=== PATIENT | male | born 1960 | race Caucasian/White ===

== ENCOUNTER 2024-01-27 16:05 | Outpatient (REF) | payer SELFPAY ==
[2024-01-27 12:27] LABS: ALT 36 U/L (16-63); AST 18 U/L (15-37); Alkaline Phosphatase 85 U/L (46-116); Anion Gap 0.6 mmol/L (3-11); BUN 15 mg/dL (7-18); Bilirubin, Total 0.3 mg/dL (0.2-1.0); CO2 35.4 mmol/L (21.0-32.0); CREATININE 0.9 mg/dL (0.70-1.30); Calcium 8.3 mg/dL (8.5-10.1); Chloride 105 mmol/L (98-107); Estimated GFR 94.19 (mL/min/1.73m2); Glucose 242 mg/dL (74-106); Potassium 4.8 mmol/L (3.5-5.1); Sodium 141 mmol/L (136-145); Total Protein 6.5 g/dL (6.4-8.2)
[2024-01-27 12:31] LABS: Abs Immature Grans 0.11 10^3/uL (0.0-0.06); Absolute Basophil Count 0.02 10^3/uL (0.0-0.2); Absolute Eosinophil Count 0.22 10^3/uL (0.0-0.7); Absolute Lymphocyte Count 0.86 10^3/uL (1.2-3.4); Absolute Monocyte Count 0.66 10^3/uL (0.1-0.8); Absolute Neutrophil Count 6.49 10^3/uL (1.2-6.7); Basophils % 0.2; Eosinophils % 2.6; HCT 33.7 % (40.0-50.0); HGB 9.8 g/dL (13.5-17.5); Immature Grans % 1.3; Lymphocytes % 10.3; MCH 30.4 pg (27.0-33.0); MCHC 29.1 % (32.0-36.0); MCV 105 fL (80-95); Monocytes % 7.9; Neutrophils % 77.7; Platelet Count 351 10^3/uL (130-400); RBC 3.22 10^6/uL (4.36-5.78); RDW 15.8 % (11.8-14.1); RDW-SD 58.5 fL; WBC 8.36 10^3/uL (4.4-10.8)
== END 2024-01-27 16:06 | disposition home or self-care (01) ==
LOC: LBO 16:05
PROVIDERS: PCP Optometrist; Visit Provider Family Medicine
DX: R65.20 Severe sepsis without septic shock (principal); E87.6 Hypokalemia
CPT/HCPCS: 80053; 85025

== ENCOUNTER 2024-03-02 13:40 | Inpatient (IN) | payer MEDICARE, MEDICAID, SELFPAY ==
[2024-03-02] VITALS (118 sets, daily range): BP systolic 72–130; BP diastolic 25–102; PULSE 65–187; RESP 10–26; TEMP 31–36.5; O2SAT 86–100
--- NOTE | 2024-03-02 13:45 | RT.EKG_ITS ---
APPROVED REPORT Exam: Resting ECG Reason for Exam: sob Patient Location: E HR:84 bpm ECG Measurements Heart Rate 84 AXIS WA 152 P 61 QRSd 100 QRS -4 QT 311 T 55 QTc 368 Conclusion Sinus rhythm...normal P axis, V-rate 60- 99 Inferior infarct, old...Q >35mS, II III aVF Physician: no stemi
--- NOTE | 2024-03-02 13:45 | DI.RAD_ITS ---
Exam(s) XR PORTABLE CHEST AP EXAM: XR PORTABLE CHEST AP CLINICAL HISTORY: sob, hypoxic. TECHNIQUE: 2D digital imaging was performed. COMPARISON: No exams were available for comparison FINDINGS: Single AP portable view. Heart size is upper normal. The mediastinum is not widened. There are significant infiltrates in both lung bases, more prominent on the left side. No obvious pl eural effusions. IMPRESSION: Bilateral lower lobe infiltrates, larger on the left side. DATA REPOSITORY: RADIATION DOSE DELIVERED:
--- NOTE | 2024-03-02 13:58 | ED.GENADUL_ITS ---
Discharge Plan Disposition Patient Disposition: Admit to [facility] Condition: Critical Discharge Details Chief Complaint: SOB Clinical Impression: Septic shock, Pneumonia, Acute hyponatremia, Acute hyperkalemia Primary Care Provider: Bright Finney ED Provider: Denys Jo Home Meds and New Rx's Prescriptions: No Action furosemide 40 mg tablet 40 mg PO DAILY Patient Comments: TAKE ONE TABLET BY MOUTH EVERY DAY enalapril maleate 20 mg tablet 20 mg PO DAILY Patient Comments: TAKE ONE TABLET BY MOUTH EVERY DAY pioglitazone 45 mg tablet 45 mg PO DAILY Patient Comments: TAKE ONE TABLET BY MOUTH EVERY DAY triamcinolone acetonide 0.1 % cream 1 applic TOPICAL BID Patient Comments: APPLY TOPICALLY TO THE AFFECTED AREA(S) TWO TIMES A DAY NEEDED amiloride 5 mg tablet 5 mg PO DAILY Patient Comments: TAKE ONE TABLET BY MOUTH EVERY DAY tamsulosin 0.4 mg capsule 0.4 mg PO DAILY Patient Comments: TAKE ONE CAPSULE BY MOUTH EVERY DAY simvastatin 20 mg tablet 20 mg PO DAILY Patient Comments: TAKE ONE TABLET BY MOUTH AT BEDTIME gabapentin 100 mg capsule 100 mg PO TID Patient Comments: TAKE ONE CAPSULE BY MOUTH THREE TIMES A DAY nifedipine 60 mg tablet extended release 60 mg PO DAILY Patient Comments: TAKE TWO TABLETS BY MOUTH EVERY DAY Invokana 100 mg tablet 100 mg PO DAILY Patient Comments: TAKE ONE TABLET BY MOUTH EVERY DAY acetaminophen 325 mg capsule 650 mg PO Q4H PRN potassium chloride 20 mEq tablet extended release 20 meq PO DAILY HPI General Date/Time Provider Initiated Documentation: 03/02/24 13:58 . 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 Patient is a poor historian, but nursing report/EMS report states that for the last 3 to 4 days he has been coughing and has been COVID-positive, he has been having increasing in his oxygen demand, and was brought in by EMS for further assessment. EMS reports oxygenation status of 2 L at baseline, however he was requiring up to 4 L to maintain sats at around 88%. Patient denies chest pain. He admits to productivity to his cough. No other complaints at this time. No other modifying factors. He is not currently on any antiviral treatment for COVID. He is DNR/DNI for his CODE STATUS. Related Data Home Medications Medication Instructions Recorded Confirmed acetaminophen 325 mg capsule 650 mg PO Q4H PRN 03/02/24 03/02/24 amiloride 5 mg tablet 5 mg PO DAILY 03/02/24 03/02/24 canagliflozin 100 mg tablet 100 mg PO DAILY 03/02/24 03/02/24 (Invokana) enalapril maleate 20 mg tablet 20 mg PO DAILY 03/02/24 03/02/24 furosemide 40 mg tablet 40 mg PO DAILY 03/02/24 03/02/24 gabapentin 100 mg capsule 100 mg PO TID 03/02/24 03/02/24 nifedipine 60 mg tablet,extended 60 mg PO DAILY 03/02/24 03/02/24 release pioglitazone 45 mg tablet 45 mg PO DAILY 03/02/24 03/02/24 potassium chloride 20 mEq 20 meq PO DAILY 03/02/24 03/02/24 tablet,extended release simvastatin 20 mg tablet 20 mg PO DAILY 03/02/24 03/02/24 tamsulosin 0.4 mg capsule 0.4 mg PO DAILY 03/02/24 03/02/24 triamcinolone acetonide 0.1 % 1 applic topical BID 03/02/24 03/02/24 topical cream Allergies Allergy/AdvReac Type Severity Reaction Status Date / Time aspirin Allergy Mild Other (See Verified 03/02/24 13:43 Comment) metformin Allergy Unknown Unknown Verified 03/02/24 13:43 sulfamethoxazole Allergy Unknown Unknown Verified 03/02/24 13:43 [From Bactrim] trimethoprim [From Bactrim] Allergy Unknown Unknown Verified 03/02/24 13:43 General Stated Complaint: SOB JOSHUA: 3 Review of Systems All systems reviewed & are unremarkable except as noted in HPI and below Exam Narrative Exam Narrative: 1.Const: Well-nourished, Well-developed, morbidly obese 2.Eyes: PERRL, no conjunctival injection, and symmetrical lids. 3.ENT: Atraumatic external nose and ears. Moist MM. Neck: Symmetric, trachea midline, No thyromegaly. 4.CVS: +S1/S2, No murmurs or gallops. Peripheral pulses 2+ and equal in all extremities. Brisk capillary refill in all extremities. 5.RESP: Rhonchorous breath sounds, no wheezes. 6.GI: Soft, Nontender/Nondistended, No hepatosplenomegaly. No guarding or rebound. 7.MSK: Normocephalic/Atraumatic, Extremities w/o deformity or ttp No cyanosis or clubbing, Normal movement of all extremities 8.Skin: Warm, Dry. No rashes or lesions. No evidence of significant cellulitis. 9.Neuro: Slurred speech which appears to be baseline, moves all extremities with weakness on the right which per records appears to be baseline. 10.Psych: (AAO) x3. Appropriate mood and affect Course Vital Signs Vital signs: Vital Signs Temperature 36.3 C L 03/02/24 13:30 Respiratory Rate 15 03/02/24 13:30 Blood Pressure 126/95 H 03/02/24 13:30 Pulse Oximetry 86 L 03/02/24 13:30 Temperature 36.3 C L 03/02/24 13:30 Respiratory Rate 15 03/02/24 13:30 Respiratory Effort Short of Breath 03/02/24 13:44 Blood Pressure 126/95 H 03/02/24 13:30 Pulse Oximetry 86 L 03/02/24 13:30 Oxygen Delivery Method Nasal Cannula 03/02/24 13:30 Oxygen Flow Rate 3 03/02/24 13:30 Lab/Test Results Lab/Test Results: 03/02/24 13:45 Blood Blood Culture - Pending 03/02/24 13:45 Blood Blood Culture - Pending Procedures Central Line Placement Right IJ: Time Out Performed: Yes Patient Placed on Monitor/Pulse Ox: Yes MD Prep: mask, gown and gloves Central Line Prep: Chlorhexidine scrub Local Anesthetic: Lidocaine 1% Amount of anesthesia used (mL): 4 Ultrasound Used for Placement: Yes Central Line Lumen Inserted: triple Post Procedure: good blood return, all ports aspirated, flushed, capped and sutured in place with 2-0 silk Post Procedure X-Ray: tip of catheter in good position Patient Tolerated Procedure: well and no complications Complications: none Medical Decision Making 64-year-old male with a past medical history morbid obesity, aortic stenosis, cellulitis requiring PICC line and antibiotics until January 25, diabetes, 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 Patient is a poor historian, but nursing report/EMS report states that for the last 3 to 4 days he has been coughing and has been COVID-positive, he has been having increasing in his oxygen demand, and was brought in by EMS for further assessment. EMS reports oxygenation status of 2 L at baseline, however he was requiring up to 4 L to maintain sats at around 88%. Patient denies chest pain. He admits to productivity to his cough. No other complaints at this time. No other modifying factors. He is not currently on any antiviral treatment for COVID. He is DNR/DNI for his CODE STATUS. Exam demonstrates large male, currently hypoxic, rhonchorous breath sounds. Requiring supplemental oxygen. Patient is COVID-positive per [facility]. Concern for pneumonia, worsening respiratory status. Will confirm COVID- positive status, get a chest x-ray, continue supplemental oxygen. No wheezes to suggest the need for bronchodilators. Symptoms appear inconsistent with ACS, however CHF is on the differential. Will evaluate for cardiac etiologies, pulmonary processes, monitor closely and reassess. 5:01 PM Laboratory workup has returned, patient's white count is 16, notable left shift, no bandemia. Mild metabolic acidosis with a pH of 7.26, sodium is 120, potassium is 7.8, BUN notably elevated at 130, creatinine high at 1.9. Glucose 174. Troponin normal, proBNP normal. Pending COVID flu and RSV. Chest x-ray shows evidence of infiltrates bilaterally. Patient became hypoxic and hypotensive. He was started on high flow and tolerated this well. He is saturating normally now on high flow currently. Patient's blood pressure went to the 70s systolic. With the notably low sodium the decision was made to give a hypertonic saline bolus of 100 cc of 3% hypertonic. For the potassium he was given amp of D50, 10 units of IV insulin, calcium gluconate, 3 albuterol nebulizers, and Kayexalate. He tolerated this well. Decision was made to place a central line. This was reviewed with both of his sisters were at bedside and the patient, and all 3 consented for the procedure. Patient states that this is congruent with his wishes. Central line was placed and Levophed has been started. Repeat blood draw was performed after well after hypertonic saline was initially administered, and new labs demonstrated new sodium of 121, and notably improved potassium of 6.9, BUN of 128. Creatinine of 2.2. Will give a second bolus of hypertonic as the patient has not had appropriate response for a sodium. Patient still states that he does not want to be intubated. With the pulmonary infiltrates we will start vancomycin Zosyn and doxycycline. Will continue to monitor the patient closely. Discussed the case with hospitalist Dr. An, he accepts the patient for ICU admission. I have extensively reviewed the treatment plan with the patient. I have addressed all patient concerns at this time. I have also discussed the plan with the admitting physician and they agree with the current assessment and plan and have agreed to assume responsibility for the patient. All parties demonstrate verbal understanding and agreement with our assessment and plan at this time. The documentation in this chart was dictated using [employer] dictation software. Please excuse any dictation errors. FINDINGS: Single AP portable view. Heart size is upper normal. The mediastinum is not widened. There are significant infiltrates in both lung bases, more prominent on the left side. No obvious pleural effusions. IMPRESSION: Bilateral lower lobe infiltrates, larger on the left side. FINDINGS: Single AP portable view. There has been interval placement of a right jugular central line. Its distal tip is in the right atrium. Heart size is upper normal. The mediastinum is not widened. Bilateral lower lobe infiltrates again noted, left again more so than right. No obvious pleural effusions. No thorax. IMPRESSION: Distal tip of the newly placed right jugular central line is in the right atrium. Bilateral lower lobe infiltrates again noted. Quality:[facility] Health Related Social Needs: No Data to Display Critical Care Time Critical Care Time Critical Care Time: Yes Total Critical Care Time: 110 Attestation: Upon my evaluation, this patient had a high probability of imminent or life- threatening deterioration, which required my direct attention, intervention, and personal management. I have personally provided 110 minutes of critical care time exclusive of time spent on separately billable procedures. Time includes review of laboratory data, radiology results, discussion with consultants, and monitoring for potential decompensation. Interventions were performed as documented. PFSH All Active Problems (Updated 03/02/24 @ 17:08 by Denys Jo DO) Acute hyperkalemia (Acute) Acute hyponatremia (Acute) Pneumonia (Acute) Septic shock (Acute) Social History Smoking/Tobacco Use Status: Never Smoking risk assessment performed?: Yes Alcohol Intake: never Substance use type: does not use Housing: assisted living facility
[2024-03-02 14:31] LABS: Abs Immature Grans 0.27 10^3/uL (0.0-0.06); Absolute Basophil Count 0.03 10^3/uL (0.0-0.2); Absolute Lymphocyte Count 1.52 10^3/uL (1.2-3.4); Absolute Monocyte Count 1.31 10^3/uL (0.1-0.8); BE (Venous) -7 mmol/L (-2-3); Basophils % 0.2 %; Eosinophils % 0.1 %; HCO3 (Venous) 20 mmol/L (23-28); HCT 28.5 % (40.0-50.0); HGB 8.9 g/dL (13.5-17.5); Immature Grans % 1.7 %; Lymphocytes % 9.4 %; MCH 30.2 pg (27.0-33.0); MCHC 31.2 % (32.0-36.0); MCV 97 fL (80-95); MPV 8.6 fL (8.0-11.0); Monocytes % 8.1 %; Neutrophils % 80.5 %; O2 Sat (Venous) 69 %; Platelet Count 400 10^3/uL (130-400); RBC 2.95 10^6/uL (4.36-5.78); RDW 15.3 % (11.8-14.1); RDW-SD 54.2 fL; TCO2 (Venous) 19 mmol/L (24-29); WBC 16.22 10^3/uL (4.4-10.8); pCO2 (Venous) 44 mmHg (41-51); pH (Venous) 7.26 (7.31-7.41); pO2 (Venous) 39 mmHg
[2024-03-02 14:32] LABS: Absolute Eosinophil Count 0.02 10^3/uL (0.0-0.7); Absolute Neutrophil Count 13.06 10^3/uL (1.2-6.7)
[2024-03-02 14:34] LABS: Lactate 1.2 mmol/L (0.6-1.4)
[2024-03-02 14:56] LABS: ALT 12 U/L (16-63); AST 8 U/L (15-37); Albumin 2.3 g/dL (3.4-5.0); Alkaline Phosphatase 58 U/L (46-116); Anion Gap 7.7 mmol/L (3-11); Bilirubin, Total 0.3 mg/dL (0.2-1.0); CO2 21.3 mmol/L (21.0-32.0); CREATININE 1.9 mg/dL (0.70-1.30); Calcium 9.4 mg/dL (8.5-10.1); Chloride 91 mmol/L (98-107); Estimated GFR 38.42 (mL/min/1.73m2); Glucose 170 mg/dL (74-106); NT-proBNP 85 pg/mL (<300); Total Protein 7.7 g/dL (6.4-8.2); Troponin I < 50 ng/L (< or =60)
[2024-03-02 14:59] LABS: BUN 130 mg/dL (7-18); Sodium 120 mmol/L (136-145)
[2024-03-02 15:00] LABS: Potassium 7.5 mmol/L (3.5-5.1)
[2024-03-02] MEDS: CALCIUM GLUCONATE in NaCl 1 GM/50 ML BAG IVPB (15:16)
[2024-03-02] MEDS: Insulin REGULAR-Human 100 UNITS/ML UNIT 10 UNITS IV (15:16)
[2024-03-02] MEDS: Albuterol 2.5 MG/3 ML INH SOLN VIAL 7.5 MG UPD (15:18)
[2024-03-02] MEDS: SODIUM CHLORIDE 3% 500 ML 400 ML IV (15:36)
[2024-03-02] MEDS: Dextrose 50%-Water 25 GM/50 ML SYR IVP (15:38)
--- NOTE | 2024-03-02 16:00 | DI.RAD_ITS ---
Exam(s) XR PORTABLE CHEST AP POST LINE EXAM: XR PORTABLE CHEST AP POST LINE CLINICAL HISTORY: post central line placement. TECHNIQUE: 2D digital imaging was performed. COMPARISON: CR XR PORTABLE CHEST AP from 03/02/2024 FINDINGS: Single AP portable view. There has been interval placement of a right jugular central line. Its distal tip is in the right at rium. Heart size is upper normal. The mediastinum is not widened. Bilateral lower lobe infiltrates again noted, left again more so than right. No obvious pleural effu sions. No thorax. IMPRESSION: Distal tip of the newly placed right jugular central line is in the right atrium. Bilateral lower lobe infiltrates again noted. DATA REPOSITORY: RADIATION DOSE DELIVERED:
[2024-03-02] MEDS: Norepinephrine in D5W 8 MG/250 ML BAG 9.375 MG IV (16:34)
[2024-03-02] MEDS: VANCOMYCIN/WATER (PEG) 2 GM/400 ML BAG IVPB (16:36)
[2024-03-02] MEDS: DOXYCYCLINE 100 MG in Normal Saline 100 ML IVPB (16:38)
[2024-03-02] MEDS: PIPERACILLIN/TAZO 4.5 GM in Normal Saline 100 ML IVPB (16:39)
[2024-03-02 16:41] LABS: Anion Gap 8.7 mmol/L (3-11); CO2 20.3 mmol/L (21.0-32.0); CREATININE 2.2 mg/dL (0.70-1.30); Calcium 9.5 mg/dL (8.5-10.1); Chloride 92 mmol/L (98-107); Estimated GFR 32.23 (mL/min/1.73m2); Glucose 174 mg/dL (74-106)
[2024-03-02 16:42] LABS: BUN 128 mg/dL (7-18)
[2024-03-02 16:43] LABS: Potassium 6.9 mmol/L (3.5-5.1); Sodium 121 mmol/L (136-145)
[2024-03-02] MEDS: SODIUM CHLORIDE 3% 500 ML 100 ML IV (17:08)
[2024-03-02 17:14] LABS: Bilirubin Small (Negative); Blood Small (Negative); Clarity Sl Cloudy (Clear); Glucose Negative (Negative); Ketones Negative (Negative); Leukocyte Esterase Moderate (Negative); Nitrite Negative (Negative); Specific Gravity 1.015 (1.005-1.025); Urobilinogen 0.2 mg/dL (Up to 0.2)
[2024-03-02] MEDS: Lactated Ringers 1,000 ML 1000 ML IV (17:15)
[2024-03-02] MEDS: Hydrocortisone SOD SUC. 100 MG VIAL IVP (17:20)
[2024-03-02 17:22] LABS: Bacteria Many HPF (Negative); Crystals Negative HPF (Negative); Epithelial Cells Few HPF (Negative); WBC >50 HPF (0-5)
[2024-03-02 17:23] LABS: C & S Indicated? Yes; Casts Negative LPF (Negative); Mucus Heavy (Negative)
[2024-03-02 17:47] LABS: Influenza A PCR Negative (Negative); Influenza B PCR Negative (Negative); RSV PCR Negative (Negative)
[2024-03-02 17:49] LABS: COVID-19 PCR Positive (Negative); Source Nasopharynx
[2024-03-02 18:07] LABS: Troponin I < 50 ng/L (< or =60)
--- NOTE | 2024-03-02 18:18 | HPE_ITS ---
Date of service: 03/02/24 Time of Service: 18:18 Assessment and Plan Assessment and plan (1) Septic shock: Status: Acute Assessment and plan: Sepsis with hypotension. Initially not treated agressively with fluids given COVID and uncertain cardiac history, but my sense is he is dry. I am ordering a second liter of isotonic, switch to NS given low sodium Also getting fluids with abx and hypertonic On norepinephrine full dose and now hydrocortisone, adding vaspressin Requested a-line to help manage Source bilateral pneumonia, started on pip/tazo and vancomycin, continue with blood, urine, sputum cultures pending. We also need to clarify his history of leg infection, possible osteo? as well as look at his sacrum for possible sources. He is confirmed DNR/DNI (2) Pneumonia: Status: Acute Assessment and plan: Presumed infectious source, treating as above (3) COVID-19: Status: Acute Assessment and plan: this may have set him up for pneumonia but unclear how active this is given diagnosed 9 days ago. We are treating with steroids as above. I don't think there is a role for antivirals at this point. (4) Acute hyperkalemia: Status: Acute Assessment and plan: Treated wiht insulin, glucose, calcium gluconate, and kayexalate along with hydration, follow q2hr (5) Acute hyponatremia: Status: Acute Assessment and plan: In low moderate range with some confusion. I think hypovolemic and we are treatting this, but also given hypertonic and only slight increase so far. (6) Type 2 diabetes mellitus: Assessment and plan: insulin drip given acuity of illness (7) DVT prophylaxis: Status: Acute Assessment and plan: higher dose LMWH given BMI History of Present Illness History of Present Illness Chief Complaint: cough, SOB Narrative: 64 yo M with type 2 DM, BMI > 50, h/o CVA with right sided hemiparesis, recent admission for left lower leg infection with sepsis at [facility] 1 mo ago, and recent diagnosis of COVID-19 who presents with worsening cough and SOB [facility]. He started getting cough about 2 weeks ago, was diagnosed with COVID 9 days ago (initially misreported as 2 days ago). Over the past day, shortness of breath and oxygen requirement has gotten worse. Per EMS, was previously on 2 liters O2, up to 4 liters today with O2 sat 88%. Cough is productive of increasingly thick green to yellow sputum. He denies chest pain. He has not been able to eat or drink much due to increasing shortness of breath over the past 2 days. He is not on antiviral treatment for COVID. Review of Systems All systems reviewed & are unremarkable except as noted in HPI and below Constitutional Constitutional: Denies fever(s), Denies headache(s), Reports lethargy and Denies poor appetite Eyes Eyes: Denies diplopia and Reports other visual disturbances (has had a left lazy eye for years) ENT Ears, Nose, Mouth, and Throat: Denies dizziness, Denies headache(s), Denies nasal discharge and Denies sore throat Cardiovascular Cardiovascular: Denies chest pain, Denies pedal edema (legs were much more swollen when he was at [facility] than they are now) and Reports orthopnea Integumentary/Breasts Skin/Breast: Reports skin ulcer (he denies but sister states he has a sore on buttocks) and Denies wounds (leg wounds from last admission healed) Neurologic Neurologic: Reports abnormal speech (chronic), Reports confusion, Denies dizziness, Denies headache(s) and Reports localized weakness (right side is weak, but no change from his baseline) Psychiatric Psychiatric: Reports confusion PFSH All Active Problems (Updated 03/02/24 @ 18:55 by Braden Weaver) COVID-19 (Acute) DVT prophylaxis (Acute) Acute hyperkalemia (Acute) Acute hyponatremia (Acute) Pneumonia (Acute) Septic shock (Acute) Medical History Venous stasis dermatitis of both lower extremities Benign prostatic hyperplasia Hypertension Hemiparesis affecting right side as late effect of stroke Type 2 diabetes mellitus Social History Smoking/Tobacco Use Status: Never Smoking risk assessment performed?: Yes Alcohol Intake: never Substance use type: does not use Housing: assisted living facility Additional Social history: Right hemiparesis for many years after stroke in 30s, but was able to drive and live alone in [place] until January hospitalization Meds Allergies and Home Medications Allergies Allergy/AdvReac Type Severity Reaction Status Date / Time aspirin Allergy Mild Other (See Verified 03/02/24 13:43 Comment) metformin Allergy Unknown Unknown Verified 03/02/24 13:43 sulfamethoxazole Allergy Unknown Unknown Verified 03/02/24 13:43 [From Bactrim] trimethoprim [From Bactrim] Allergy Unknown Unknown Verified 03/02/24 13:43 Home Medications Medication Instructions Recorded Confirmed Type acetaminophen 325 mg capsule 650 mg PO Q4H PRN 03/02/24 03/02/24 History amiloride 5 mg tablet 5 mg PO DAILY 03/02/24 03/02/24 History canagliflozin 100 mg tablet 100 mg PO DAILY 03/02/24 03/02/24 History (Invokana) enalapril maleate 20 mg tablet 20 mg PO DAILY 03/02/24 03/02/24 History furosemide 40 mg tablet 40 mg PO DAILY 03/02/24 03/02/24 History gabapentin 100 mg capsule 100 mg PO TID 03/02/24 03/02/24 History nifedipine 60 mg tablet,extended 60 mg PO DAILY 03/02/24 03/02/24 History release pioglitazone 45 mg tablet 45 mg PO DAILY 03/02/24 03/02/24 History potassium chloride 20 mEq 20 meq PO DAILY 03/02/24 03/02/24 History tablet,extended release simvastatin 20 mg tablet 20 mg PO DAILY 03/02/24 03/02/24 History tamsulosin 0.4 mg capsule 0.4 mg PO DAILY 03/02/24 03/02/24 History triamcinolone acetonide 0.1 % 1 applic topical BID 03/02/24 03/02/24 History topical cream Exam Narrative Exam Narrative: GEN: Alert and oriented to self but could not name place or year. Cooperative, voice is course and gargly, gives a vague history. Able to speak in short sentances HEENT: Head atraumatic. Conjunctiva clear, no icterus. PEERL, left eye does not track (chronic). Right slow to track laterally but it does. no rhinorrhea. MMM, OP benign. Neck is supple with no masses or lymphadenopathy, trachea midline, central line in place, difficult to assess JVP with habitus but none evident LUNGS: Diffuse course rhonchorous breath sounds, no focal rales, moving air bilaterally CV: RRR with no murmurs, gallops, or rubs. ABD: +BS, soft, NT/ND EXT: no cyanosis, clubbing. Legs with 1+ heidi edema, somewhat woody. Not tender MSK: No joint redness or swelling NEURO: CN 2-12 grossly intact. Normal movement of 4 extremities. Normal speech and coordination SKIN: No rashes or open wounds, hyperpigmented shins heidi. he would not roll for me to look at sacrum/buttocks. PSYCH: normal mood and affect, though not oriented Results Imaging CT scan - chest: report reviewed (Bilateral lower lobe infiltrates, larger on the left side.) and image reviewed EKG: report reviewed and image reviewed (NSR, nl axis, no STEMI) Labs 03/02/24 14:20 03/02/24 16:23 Labs: Laboratory Results - last 24 hr 03/02/24 03/02/24 03/02/24 14:20 16:23 17:02 WBC 16.22 H RBC 2.95 L Hgb 8.9 L Hct 28.5 L MCV 97 H MCH 30.2 MCHC 31.2 L RDW 15.3 H Plt Count 400 MPV 8.6 Immature Gran % 1.7 Neutrophils % 80.5 Lymphocytes % 9.4 Monocytes % 8.1 Eosinophils % 0.1 Basophils % 0.2 Nucleated RBC % 0.0 Absolute Neutrophils 13.06 H Absolute Lymphocytes 1.52 Absolute Monocytes 1.31 H Absolute Eosinophils 0.02 Absolute Basophils 0.03 VBG pH 7.26 L VBG pCO2 44 VBG pO2 39 VBG HCO3 20 L VBG Total CO2 19 L VBG O2 Saturation 69 VBG Base Excess -7 L VBG Lactate 1.2 Sodium 120 L* 121 L* Potassium 7.5 H* 6.9 H* Chloride 91 L 92 L Carbon Dioxide 21.3 20.3 L Anion Gap 7.7 8.7 BUN 130 H* 128 H* Creatinine 1.9 H 2.2 H Est GFR (CKD-EPI 2020) 38.42 32.23 Glucose 170 H 174 H Calcium 9.4 9.5 Total Bilirubin 0.3 AST 8 L ALT 12 L Alkaline Phosphatase 58 Troponin I < 50 NT-Pro-B Natriuret Pep 85 Total Protein 7.7 Albumin 2.3 L Urine Color Urine Clarity Urine pH Ur Specific [place] Urine Protein Urine Ketones Urine Blood Urine Nitrite Urine Bilirubin Urine Urobilinogen Ur Leukocyte Esterase Urine RBC Urine WBC Ur Epithelial Cells Urine Crystals Urine Bacteria Urine Casts Urine Mucus Ur Culture Indicated? Urine Glucose COVID-19 Source Nasopharynx SARS-CoV-2 (PCR) Positive A Influenza Type A (PCR) Negative Influenza Type B (PCR) Negative RSV (PCR) Negative 03/02/24 03/02/24 17:03 17:37 WBC RBC Hgb Hct MCV MCH MCHC RDW Plt Count MPV Immature Gran % Neutrophils % Lymphocytes % Monocytes % Eosinophils % Basophils % Nucleated RBC % Absolute Neutrophils Absolute Lymphocytes Absolute Monocytes Absolute Eosinophils Absolute Basophils VBG pH VBG pCO2 VBG pO2 VBG HCO3 VBG Total CO2 VBG O2 Saturation VBG Base Excess VBG Lactate Sodium Potassium Chloride Carbon Dioxide Anion Gap BUN Creatinine Est GFR (CKD-EPI 2020) Glucose Calcium Total Bilirubin AST ALT Alkaline Phosphatase Troponin I < 50 NT-Pro-B Natriuret Pep Total Protein Albumin Urine Color Yellow Urine Clarity Sl Cloudy Urine pH 5.0 Ur Specific [place] 1.015 Urine Protein Negative Urine Ketones Negative Urine Blood Small H Urine Nitrite Negative Urine Bilirubin Small H Urine Urobilinogen 0.2 Ur Leukocyte Esterase Moderate H Urine RBC 5-10 H Urine WBC >50 H Ur Epithelial Cells Few Urine Crystals Negative Urine Bacteria Many Urine Casts Negative Urine Mucus Heavy Ur Culture Indicated? Yes Urine Glucose Negative COVID-19 Source SARS-CoV-2 (PCR) Influenza Type A (PCR) Influenza Type B (PCR) RSV (PCR) Last Vital Signs Temp 36.3 C L 03/02/24 14:41 Pulse 82 03/02/24 18:01 Resp 13 03/02/24 18:01 BP 106/54 L 03/02/24 18:01 Pulse Ox 98 03/02/24 18:01 Time Spent Time spent with Patient: >75 minutes Time was spent: preparing to see the patient(eg.review tests), obtaining and/or reviewing separately otained hiistory, ordering medications,tests, procedures, referring, communicating with other health daycare director, indepentently interpreting results, counseling the patient and care coordination
[2024-03-02] MEDS: VASOPRESSIN 50 UNITS in Normal Saline 497.5 ML 24 UNITS IV (19:00)
[2024-03-02 19:10] LABS: MRSA PCR Negative (Negative)
[2024-03-02] MEDS: INSULIN REGULAR IN 0.9 % NACL 100 UNIT/100 ML BAG IV (19:11)
--- NOTE | 2024-03-02 19:11 | W.ANESVAS ---
Arterial Line Placement Date Performed: 03/02/24 Procedure Time: 19:00 Procedure Location: Intensive Care Unit Requesting Provider: Braden Weaver Timeout Performed: Yes Sedation Given (Indicate Dose Given): No Sedation given Patient Mental Status: Awake Sterility: Hand Hygiene, Surgical Cap, Surgical Mask, Sterile Gloves and Chlorhexidine Laterality: Right Insertion Site: Radial Arterial Line Catheter: 20G Arrow Arterial Line Procedure: Vessel accessed with needle, Vessel accessed with catheter over needle and Catheter placed without resistance Dressing: Tegaderm Applied and Other (statlock applied) Ultrasound: Not Used Number of Attempts (See previous attempts in note section): 1 Procedure Tolerated: No Complications and Patient tolerated well Procedure Outcome: Successful Performed By: Abeba Sinclair
[2024-03-02] MEDS: Normal Saline 1,000 ML 1000 ML IV (19:23)
[2024-03-02] MEDS: DEXTROSE 5%-0.9% SALINE 1,000 ML 100 ML IV (19:29)
[2024-03-02 20:04] LABS: CREATININE 2.1 mg/dL (0.70-1.30); Calcium 9.3 mg/dL (8.5-10.1); Chloride 93 mmol/L (98-107); Estimated GFR 34.08 (mL/min/1.73m2); Glucose 226 mg/dL (74-106)
[2024-03-02 20:06] LABS: BUN 119 mg/dL (7-18); Potassium 7.6 mmol/L (3.5-5.1)
[2024-03-02 20:07] LABS: Sodium 121 mmol/L (136-145)
[2024-03-02] MEDS: Enoxaparin 60 MG/0.6 ML SYR SC (20:12)
[2024-03-02] MEDS: PIPERACILLIN/TAZO 3.375 GM in Normal Saline 50 ML IVPB (22:12)
[2024-03-02] MEDS: Norepinephrine in D5W 8 MG/250 ML BAG 67.5 MG IV (22:13)
[2024-03-02] MEDS: DOBUTamine 500 MG/250 ML BAG 13.158 MG IV (22:16)
[2024-03-02 22:39] LABS: Lab Add On Test DONE
[2024-03-02 22:49] LABS: Anion Gap 6.3 mmol/L (3-11); CO2 16.7 mmol/L (21.0-32.0); CREATININE 1.8 mg/dL (0.70-1.30); Calcium 8.4 mg/dL (8.5-10.1); Chloride 99 mmol/L (98-107); Glucose 315 mg/dL (74-106)
[2024-03-02 22:52] LABS: BUN 107 mg/dL (7-18); Potassium 6.9 mmol/L (3.5-5.1); Sodium 122 mmol/L (136-145)
[2024-03-02 23:09] LABS: Procalcitonin 1.6 ng/mL
[2024-03-03] VITALS (85 sets, daily range): BP systolic 80–139; BP diastolic 46–116; PULSE 71–190; RESP 8–24; TEMP 31–37.1; O2SAT 83–99
[2024-03-03 00:20] LABS: HCT 26.7 % (40.0-50.0); HGB 8.1 g/dL (13.5-17.5); MCH 30.1 pg (27.0-33.0); MCHC 30.3 % (32.0-36.0); MCV 99 fL (80-95); MPV 8.8 fL (8.0-11.0); Platelet Count 419 10^3/uL (130-400); RBC 2.69 10^6/uL (4.36-5.78); RDW 15.5 % (11.8-14.1); RDW-SD 56.6 fL; WBC 16.81 10^3/uL (4.4-10.8)
[2024-03-03 00:33] LABS: Anion Gap 4.3 mmol/L (3-11); CO2 18.7 mmol/L (21.0-32.0); CREATININE 1.9 mg/dL (0.70-1.30); Chloride 98 mmol/L (98-107); Estimated GFR 38.42 (mL/min/1.73m2); Glucose 345 mg/dL (74-106)
[2024-03-03 00:38] LABS: BUN 107 mg/dL (7-18); Sodium 121 mmol/L (136-145)
[2024-03-03 00:39] LABS: Potassium 6.9 mmol/L (3.5-5.1)
[2024-03-03] MEDS: Norepinephrine in D5W 8 MG/250 ML BAG 93.75 MG IV ×6 (01:00→14:25)
[2024-03-03] MEDS: CALCIUM GLUCONATE in NaCl 1 GM/50 ML BAG IVPB (01:01)
[2024-03-03] MEDS: Hydrocortisone SOD SUC. 100 MG VIAL IVP (02:11)
[2024-03-03 02:36] LABS: Anion Gap 9.6 mmol/L (3-11); CO2 18.4 mmol/L (21.0-32.0); CREATININE 1.9 mg/dL (0.70-1.30); Calcium 9.2 mg/dL (8.5-10.1); Chloride 98 mmol/L (98-107); Estimated GFR 38.42 (mL/min/1.73m2); Glucose 295 mg/dL (74-106); Sodium 126 mmol/L (136-145)
[2024-03-03 02:38] LABS: BUN 102 mg/dL (7-18)
[2024-03-03 02:39] LABS: Potassium 6.5 mmol/L (3.5-5.1)
[2024-03-03] MEDS: DEXTROSE 5%-0.45% SALINE 1,000 ML 150 ML IV (03:40)
[2024-03-03] MEDS: DOBUTamine 500 MG/250 ML BAG 43.86 MG IV (03:40)
[2024-03-03] MEDS: VANCOMYCIN/WATER (PEG) 750 MG/150 ML BAG 150 MG IVPB ×2 (04:09→15:49)
[2024-03-03] MEDS: PIPERACILLIN/TAZO 3.375 GM in Normal Saline 50 ML IVPB (04:13)
[2024-03-03 04:32] LABS: Anion Gap 10.8 mmol/L (3-11); CO2 18.2 mmol/L (21.0-32.0); CREATININE 1.7 mg/dL (0.70-1.30); Calcium 9.2 mg/dL (8.5-10.1); Chloride 99 mmol/L (98-107); Estimated GFR 43.91 (mL/min/1.73m2); Glucose 215 mg/dL (74-106); Sodium 128 mmol/L (136-145)
[2024-03-03 04:34] LABS: BUN 100 mg/dL (7-18); Potassium 6.3 mmol/L (3.5-5.1)
[2024-03-03 06:11] LABS: HCT 25.8 % (40.0-50.0); MCH 30.8 pg (27.0-33.0); MCV 99 fL (80-95); MPV 8.5 fL (8.0-11.0); Platelet Count 390 10^3/uL (130-400); RDW 15.6 % (11.8-14.1); RDW-SD 56.3 fL; WBC 16.46 10^3/uL (4.4-10.8)
[2024-03-03 06:26] LABS: Anion Gap 11.1 mmol/L (3-11); CO2 17.9 mmol/L (21.0-32.0); CREATININE 1.6 mg/dL (0.70-1.30); Calcium 8.8 mg/dL (8.5-10.1); Chloride 99 mmol/L (98-107); Estimated GFR 47.23 (mL/min/1.73m2); Glucose 142 mg/dL (74-106); Potassium 5.9 mmol/L (3.5-5.1); Sodium 128 mmol/L (136-145)
[2024-03-03 06:29] LABS: BUN 90 mg/dL (7-18)
[2024-03-03 06:39] LABS: Absolute Lymphocyte Count 1.15 10^3/uL (1.2-3.4); Absolute Monocyte Count 0.99 10^3/uL (0.1-0.8); Absolute Neutrophil Count 14.16 10^3/uL (1.2-6.7); Bands % 2 %
[2024-03-03 06:40] LABS: Anisocytosis 1+; Diff Comment Manual Differential; Hypochromasia 1+; Metamyelocytes % 1
--- NOTE | 2024-03-03 07:00 | PDOC.CMIN ---
Date of service: 03/03/24 Time of Service: 07:01 Care Management Initial Assmt Initial Assessment Reason for Hospitalization: Septic Shock, hyponatremia, hyperkalemia Functional Status/Living Situation Patient Presentation: Luann is not doing well, per MD. CM contacted admission staff at [facility] to seek contact information for Luann's family. CM provided contact: Florence Jorge [phone] Weaver who notified family of Luann's current presentation. Dr. Weaver then updated CM that family were coming to [facility] immediately. . Town of Residence: [place], [facility] Res[facility] with: Other Significant Other/Family: Local Natural Supports: Mother: Susannah, brother and sister. Employment Status: Disabled Instrumental Activities of Daily Living (ADLs): Requires support with Other (SNF) Medications Medication Management: Issues/Barriers with Other (Managed by H&R) Physical Functioning/Mobility Assistive Device: Right hemiparesis for many years after stroke in 30s, but was able to drive and live alone in [place] until January hospitalization Advance Directives Advance Directives: Do you have an Advance Directive: AD On File at [facility]: N 01/27/24 07:19 Date Asked 03/02/24 03/02/24 15:37 AD Date Reviewed COLST On File at [facility] COLST Date Scanned Comment: To request from H&R Code Status Resuscitation Status DNR/DNI Insurance Coverage/Financial Issues Insurance: Medicare, Medicaid Care Team Visit Care Team Role Provider Type Bright Finney Primary Care Provider NON-[facility] STAFF PHYSICIAN Denys Jo DO Emergency Provider [facility] STAFF PHYSICIAN Braden Weaver Admit Provider [facility] STAFF PHYSICIAN Attending Provider Discharge Anticipated Barriers to Discharge: Medical Status Patient/Family Education Needs: Review discharge instructions, discuss Ask Me Three Transportation: EMS Plan: Luann will return to [facility] when medically ready. Transport dependent on mobility. CM following. [facility] All Active Problems (Updated 03/04/24 @ 08:41 by Braden Weaver) Atrial fibrillation with rapid ventricular response (Acute) Goals of care, counseling/discussion (Acute) Gastrointestinal hemorrhage with melena (Acute) Hypoxic respiratory failure (Acute) UTI (urinary tract infection) (Acute) Uremia (Acute) Hyperglycemia (Acute) SALINAS (acute kidney injury) (Acute) Anemia (Chronic) Upper GI bleeding (Acute) Leukocytosis (Acute) Pressure ulcer (Acute) COVID-19 (Acute) DVT prophylaxis (Acute) Acute hyperkalemia (Acute) Acute hyponatremia (Acute) Pneumonia (Acute) Septic shock (Acute) Medical History Venous stasis dermatitis of both lower extremities Benign prostatic hyperplasia Hypertension Hemiparesis affecting right side as late effect of stroke Type 2 diabetes mellitus Social History Smoking/Tobacco Use Status: Never Smoking risk assessment performed?: Yes Alcohol Intake: never Substance use type: does not use Housing: assisted living facility Additional Social history: Right hemiparesis for many years after stroke in 30s, but was able to drive and live alone in [place] until January SDOH(Care Management) Screening Will the Patient Participate in the Screening?: Unable to obtain
[2024-03-03] MEDS: Normal Saline Flush 10 ML SYR IVP ×4 (07:57→21:25)
[2024-03-03] MEDS: Enoxaparin 60 MG/0.6 ML SYR SC ×2 (07:58→21:33)
--- NOTE | 2024-03-03 08:15 | W.PULMCC ---
General Date of Service Date of service: 03/03/24 Time of Service: 08:15 Reason for Admission to ICU: Septic Shock Assessment and Plan Assessment and plan (1) COVID-19: Status: Acute (2) Pneumonia: Status: Acute (3) Septic shock: Status: Acute (4) Pressure ulcer: Status: Acute (5) Leukocytosis: Status: Acute (6) Upper GI bleeding: Status: Acute (7) Anemia: Status: Chronic (8) Acute hyperkalemia: Status: Acute (9) Acute hyponatremia: Status: Acute (10) SALINAS (acute kidney injury): Status: Acute (11) Hyperglycemia: Status: Acute (12) Uremia: Status: Acute (13) UTI (urinary tract infection): Status: Acute (14) Hypoxic respiratory failure: Status: Acute Assessment and plan: This is a 64 yo admitted to the ICU for respiratory failure and likely septic shock in the setting of COVID, possible pneumonia, possible UTI and recent cellulitis needing retirement antibiotics. I am unclear the driving force in his case. It not common to have severe COVID with catecholamine surge with the current variants, however I cannot rule this out given his presentation and exam. I would like to start him on Remdesivir. He is unable to take PO currently so am unable to order barcitinib and our hospital does not carry tocilizumab any longer. I will change his steroids from hydrocortisone to dexamethasone due to possible severe COVID as well. What does not fit with this diagnosis is the lack of B-lines seen on POCUS and his CXR is not overly consistent with severe COVID. There is possible bilateral lower lobe pneumonia and a possible UTI (presented to hospital with Pino in place) so I do recommend broad spectrum antibiotics with cefepime, vancomycin and doxycycline. Given the renal impairment I have changed Zosyn to cefepime. My POCUS views this morning were very limited but did find evidence of high pressures with a large and plethoric IVC. Other differentials may include a PE, however he is too tenuous to send him for CTPE. We will order an echo to see if there is evidence of acute right sided strain. I am hesitent to start A/C given the melena he had this morning. He is requiring triple vasopressors (epinephrine added this morning). I do worry about his survivability and do think a candid conversation with his next of kin should occur. Typically, I would opt to intubate him given the pressor and O2 requirements, however he is DNR/DNI and this was reconfirmed this morning. Recommendations Pulmonary: Hypoxic respiratory failure - HFNC and BiPAP as able to tolerate - physicially unable to prone - standing Combivent - albuterol HFA prn - ABG to assess PaO2 Cardiac: Septic Shock - Levophed and vasopressin (0.03 - no titration) - Epinephrine to start today - MAP goal 65mmHg - hydrocortisone changed to dexamethasone given COVID - recommend formal echo - VBG from central line to assess mixed venous saturation - BMP q8h - bid hemoglobin - DIC labs - Mag and phos daily Renal: SALINAS - good UOP, continue to monitor - change Pino Uremia - conitnue to monitor Hyponatremia - improved, no current intervention needed Hyperkalemia - improved, no current intervention needed - recommend electrolytes q8h I&O: Intake & Output 02/29/24 03/01/24 03/02/24 03/03/24 23:59 23:59 23:59 23:59 Intake Total 3416.942 / 3423.960 2519.711 / 2519.711 Output Total 1000 / 1000 1700 / 1700 Balance 2416.942 / 2423.960 819.711 / 819.711 Weight 146.2 kg Daily Fluid Goal:: even GI Nutrition: Nutrition - NPO for now Upper GIB - start Protonix IV bid - will continue Lovenox ppx for now, however if more episodes of bleeding then will have to hold this - too ill for EGD currently, and low volume melena, unlikely to be jinriksha driver of shock Infectious Disease: COVID 19 - start remdesivir - no toci at pharmacy and patient unable to tolerate PO currently so cannot use barcitinib - stop hydrocortisone - start dexamethasone - inflammatory labs ordered - inhalers and supportive care as above Pneumonia - vancomycin, cefepime and doxycycline while critically ill - urine antigens for strep and legionella - blood cultures pending UTI - antibiotics as above - urine culture pending Decubitus ulcer - recommend wound consult Hematologic: Anemia - GIB as above - monitor - transfusion for Hb less than 7 Neurologic: No acute concerns Endocrine: Hyperglycemia - stop insulin drip and D5NS - q6h fingersticks - SSI coverage Lines: R IJ CVC Right radial art line Pino Prophylaxis: Lovenox Protonix Code Status: Resuscitation Status DNR/DNI Subjective Critical and life-threatening events over the past 24 hours: This is a 64 yo admitted to the ICU with respiratory failure and septic shock. The patient has a history of CVA with chronic expressive aphasia. He also has a history of aortic stenosis and recent cellulitis who was recently diagnosed with COVID (5 days ago). He is DNR/DNI but has been requiring high doses of vasopressors and maxed out HFNC to maintain hemodynamics. He has a WBC count without an impressive neutrophil:lymphocyte ratio. He has a normal lactate. He was on an insulin infusion and received fluid resuscitation with improvement in his creatinine. He has good UOP. Normal LFT's and an elevated procalcitonin.EKG is non revealing. There is evidence of UTI, but arrived to [facility] with a Pino. PCR remains positive for COVID. Blood and urine cultures are pending. CXR shows low lung volumes but unable to rule out infiltrates given quality of CXR. Patient limited in ability to participate in history taking given prior CVA. Exam Narrative Exam Narrative: Gen: NAD, normal respiratory effort, obese HENT: PERRL Chest: No respiratory distress, normal appearance of chest, clear to auscultation bilaterally, distant breath sounds Heart: regular rate and rhythym, distant heart sounds Abdomen: Non-distended, soft, non tender Extremities: No clubbing, there is bilateral lower extremity edema and chronic stasis changes. There is a stage 2 decubitus ulcer on sacrum Neuro: right geo-paresis, expressive aphasia. Alert and awake. Psych: cooperative Most Recent VS/Results Last Vital Signs Temp 37.0 C 03/03/24 04:00 Pulse 120 H 03/03/24 03:29 Resp 13 03/03/24 05:30 BP 103/46 L 03/03/24 03:29 Pulse Ox 90 L 03/03/24 05:30 Laboratory Results - last 24 hr 03/02/24 03/02/24 03/02/24 14:20 16:23 17:02 WBC 16.22 H RBC 2.95 L Hgb 8.9 L Hct 28.5 L MCV 97 H MCH 30.2 MCHC 31.2 L RDW 15.3 H Plt Count 400 MPV 8.6 Immature Gran % 1.7 Neutrophils % 80.5 Band Neutrophils % Lymphocytes % 9.4 Monocytes % 8.1 Eosinophils % 0.1 Basophils % 0.2 Metamyelocytes % Nucleated RBC % 0.0 Absolute Neutrophils 13.06 H Absolute Lymphocytes 1.52 Absolute Monocytes 1.31 H Absolute Eosinophils 0.02 Absolute Basophils 0.03 RBC Morphology Hypochromasia Anisocytosis VBG pH 7.26 L VBG pCO2 44 VBG pO2 39 VBG HCO3 20 L VBG Total CO2 19 L VBG O2 Saturation 69 VBG Base Excess -7 L VBG Lactate 1.2 Sodium 120 L* 121 L* Potassium 7.5 H* 6.9 H* Chloride 91 L 92 L Carbon Dioxide 21.3 20.3 L Anion Gap 7.7 8.7 BUN 130 H* 128 H* Creatinine 1.9 H 2.2 H Est GFR (CKD-EPI 2020) 38.42 32.23 Glucose 170 H 174 H Calcium 9.4 9.5 Total Bilirubin 0.3 AST 8 L ALT 12 L Alkaline Phosphatase 58 Troponin I < 50 NT-Pro-B Natriuret Pep 85 Total Protein 7.7 Albumin 2.3 L Procalcitonin 1.6 Urine Color Urine Clarity Urine pH Ur Specific Bryson Urine Protein Urine Ketones Urine Blood Urine Nitrite Urine Bilirubin Urine Urobilinogen Ur Leukocyte Esterase Urine RBC Urine WBC Ur Epithelial Cells Urine Crystals Urine Bacteria Urine Casts Urine Mucus Ur Culture Indicated? Urine Glucose COVID-19 Source Nasopharynx SARS-CoV-2 (PCR) Positive A Influenza Type A (PCR) Negative Influenza Type B (PCR) Negative RSV (PCR) Negative MRSA (TEM-PCR) Add-On Test Request DONE 03/02/24 03/02/24 03/02/24 17:03 17:08 17:37 WBC RBC Hgb Hct MCV MCH MCHC RDW Plt Count MPV Immature Gran % Neutrophils % Band Neutrophils % Lymphocytes % Monocytes % Eosinophils % Basophils % Metamyelocytes % Nucleated RBC % Absolute Neutrophils Absolute Lymphocytes Absolute Monocytes Absolute Eosinophils Absolute Basophils RBC Morphology Hypochromasia Anisocytosis VBG pH VBG pCO2 VBG pO2 VBG HCO3 VBG Total CO2 VBG O2 Saturation VBG Base Excess VBG Lactate Sodium Potassium Chloride Carbon Dioxide Anion Gap BUN Creatinine Est GFR (CKD-EPI 2020) Glucose Calcium Total Bilirubin AST ALT Alkaline Phosphatase Troponin I < 50 NT-Pro-B Natriuret Pep Total Protein Albumin Procalcitonin Urine Color Yellow Urine Clarity Sl Cloudy Urine pH 5.0 Ur Specific Bryson 1.015 Urine Protein Negative Urine Ketones Negative Urine Blood Small H Urine Nitrite Negative Urine Bilirubin Small H Urine Urobilinogen 0.2 Ur Leukocyte Esterase Moderate H Urine RBC 5-10 H Urine WBC >50 H Ur Epithelial Cells Few Urine Crystals Negative Urine Bacteria Many Urine Casts Negative Urine Mucus Heavy Ur Culture Indicated? Yes Urine Glucose Negative COVID-19 Source SARS-CoV-2 (PCR) Influenza Type A (PCR) Influenza Type B (PCR) RSV (PCR) MRSA (TEM-PCR) Negative Add-On Test Request 03/02/24 03/02/24 03/02/24 19:30 22:20 23:55 WBC 16.81 H RBC 2.69 L Hgb 8.1 L Hct 26.7 L MCV 99 H MCH 30.1 MCHC 30.3 L RDW 15.5 H Plt Count 419 H MPV 8.8 Immature Gran % Neutrophils % Band Neutrophils % Lymphocytes % Monocytes % Eosinophils % Basophils % Metamyelocytes % Nucleated RBC % Absolute Neutrophils Absolute Lymphocytes Absolute Monocytes Absolute Eosinophils Absolute Basophils RBC Morphology Hypochromasia Anisocytosis VBG pH VBG pCO2 VBG pO2 VBG HCO3 VBG Total CO2 VBG O2 Saturation VBG Base Excess VBG Lactate Sodium 121 L* 122 L* 121 L* Potassium 7.6 H* 6.9 H* 6.9 H* Chloride 93 L 99 98 Carbon Dioxide 19.0 L 16.7 L 18.7 L Anion Gap 9.0 6.3 4.3 BUN 119 H* 107 H* 107 H* Creatinine 2.1 H 1.8 H 1.9 H Est GFR (CKD-EPI 2020) 34.08 41.00 38.42 Glucose 226 H 315 H 345 H Calcium 9.3 8.4 L 9.0 Total Bilirubin AST ALT Alkaline Phosphatase Troponin I NT-Pro-B Natriuret Pep Total Protein Albumin Procalcitonin Urine Color Urine Clarity Urine pH Ur Specific Bryson Urine Protein Urine Ketones Urine Blood Urine Nitrite Urine Bilirubin Urine Urobilinogen Ur Leukocyte Esterase Urine RBC Urine WBC Ur Epithelial Cells Urine Crystals Urine Bacteria Urine Casts Urine Mucus Ur Culture Indicated? Urine Glucose COVID-19 Source SARS-CoV-2 (PCR) Influenza Type A (PCR) Influenza Type B (PCR) RSV (PCR) MRSA (TEM-PCR) Add-On Test Request 03/03/24 03/03/24 03/03/24 02:05 04:05 06:05 WBC 16.46 H RBC 2.60 L Hgb 8.0 L Hct 25.8 L MCV 99 H MCH 30.8 MCHC 31.0 L RDW 15.6 H Plt Count 390 MPV 8.5 Immature Gran % See Differential Neutrophils % 84.0 Band Neutrophils % 2 Lymphocytes % 7.0 Monocytes % 6.0 Eosinophils % 0.0 Basophils % 0.0 Metamyelocytes % 1 Nucleated RBC % 0.0 Absolute Neutrophils 14.16 H Absolute Lymphocytes 1.15 L Absolute Monocytes 0.99 H Absolute Eosinophils 0.00 Absolute Basophils 0.00 RBC Morphology See Below Hypochromasia 1+ Anisocytosis 1+ VBG pH VBG pCO2 VBG pO2 VBG HCO3 VBG Total CO2 VBG O2 Saturation VBG Base Excess VBG Lactate Sodium 126 L 128 L 128 L Potassium 6.5 H* 6.3 H* 5.9 H Chloride 98 99 99 Carbon Dioxide 18.4 L 18.2 L 17.9 L Anion Gap 9.6 10.8 11.1 H BUN 102 H* 100 H* 90 H* Creatinine 1.9 H 1.7 H 1.6 H Est GFR (CKD-EPI 2020) 38.42 43.91 47.23 Glucose 295 H 215 H 142 H Calcium 9.2 9.2 8.8 Total Bilirubin AST ALT Alkaline Phosphatase Troponin I NT-Pro-B Natriuret Pep Total Protein Albumin Procalcitonin Urine Color Urine Clarity Urine pH Ur Specific Bryson Urine Protein Urine Ketones Urine Blood Urine Nitrite Urine Bilirubin Urine Urobilinogen Ur Leukocyte Esterase Urine RBC Urine WBC Ur Epithelial Cells Urine Crystals Urine Bacteria Urine Casts Urine Mucus Ur Culture Indicated? Urine Glucose COVID-19 Source SARS-CoV-2 (PCR) Influenza Type A (PCR) Influenza Type B (PCR) RSV (PCR) MRSA (TEM-PCR) Add-On Test Request 03/03/24 03/03/24 07:29 11:29 WBC RBC Hgb Hct MCV MCH MCHC RDW Plt Count MPV Immature Gran % Neutrophils % Band Neutrophils % Lymphocytes % Monocytes % Eosinophils % Basophils % Metamyelocytes % Nucleated RBC % Absolute Neutrophils Absolute Lymphocytes Absolute Monocytes Absolute Eosinophils Absolute Basophils RBC Morphology Hypochromasia Anisocytosis VBG pH VBG pCO2 VBG pO2 VBG HCO3 VBG Total CO2 VBG O2 Saturation VBG Base Excess VBG Lactate Sodium Cancelled Cancelled Potassium Cancelled Cancelled Chloride Cancelled Cancelled Carbon Dioxide Cancelled Cancelled Anion Gap Cancelled Cancelled BUN Cancelled Cancelled Creatinine Cancelled Cancelled Est GFR (CKD-EPI 2020) Cancelled Cancelled Glucose Cancelled Cancelled Calcium Cancelled Cancelled Total Bilirubin AST ALT Alkaline Phosphatase Troponin I NT-Pro-B Natriuret Pep Total Protein Albumin Procalcitonin Urine Color Urine Clarity Urine pH Ur Specific Bryson Urine Protein Urine Ketones Urine Blood Urine Nitrite Urine Bilirubin Urine Urobilinogen Ur Leukocyte Esterase Urine RBC Urine WBC Ur Epithelial Cells Urine Crystals Urine Bacteria Urine Casts Urine Mucus Ur Culture Indicated? Urine Glucose COVID-19 Source SARS-CoV-2 (PCR) Influenza Type A (PCR) Influenza Type B (PCR) RSV (PCR) MRSA (TEM-PCR) Add-On Test Request Review of Systems Unobtainable due to mental condition Time spent with patient Time spent in Critical Care: 65 Time spent in Critical care included: Coordination of care, Chart review, Documenting critically ill care, Time at immediate bedside and Discussing critically ill care with other medical staff Multi-Disciplinary Checklist Lines/Tubes CENTRAL LINE: yes, Central Line Day#: 1 ARTERIAL LINE: yes, Arterial Line Day#: 1 PINO: yes, Pino Day#: 0 Note: new Pino placed today ENDOTRACHEAL TUBE: no ICU Maintenance GLUCOSE 140-180mg/dL: yes NUTRITION AT GOAL: no, Reason/Intervention: NPO due to significant vasopressors PRESSURE ULCER: yes, Sacral and Penile, present on admission RESTRAINTS: no ANTIBIOTICS(if yes, consider Stewardship): Yes Social Issues FAMILY UPDATED: yes PT/OT: no, Reason/Intervention: not currently appropriate GOALS/DISPOSITION/YARN TWISTER: yes CODE STATUS: DNR/DNI Prophylaxis DVT PROPHYLAXIS: yes GI PROPHYLAXIS: yes, Indication: GIB and vasopressor support Pocus Exam Limited Cardiac Exam DATE OF EXAM: 03/03/24 TIME OF EXAM: 08:00 PROVIDER THAT PERFORMED THE STUDY: Cece Vargas IS THIS A REPEAT EXAM DURING THIS ENCOUNTER: no REASON FOR EXAM: Hypotension VISUALIZED STRUCTURES: left atrium, right atrium, aortic valve and IVC VIEW OBTAINED: Subxiphoid PERTINENT FINDINGS/IMPRESSION: Plethoric IVC INCIDENTAL FINDINGS: limited views due to body habitus Exam complete
[2024-03-03 09:14] LABS: BE -13 mmol/L (-2-3); pCO2 36 mmHg (35-45); pH 7.23 (7.35-7.45); pO2 73 mmHg (80-105)
[2024-03-03 09:15] LABS: HCO3 15 mmol/L (22-26); Site Arterial Line; TCO2 16 mmol/L (23-27); sO2 91 % (95-98)
[2024-03-03 09:18] LABS: BE (Venous) -12 mmol/L (-2-3); HCO3 (Venous) 16 mmol/L (23-28); O2 Sat (Venous) 78 %; TCO2 (Venous) 17 mmol/L (24-29); pCO2 (Venous) 42 mmHg (41-51); pO2 (Venous) 53 mmHg
[2024-03-03 09:19] LABS: pH (Venous) 7.19 (7.31-7.41)
[2024-03-03] MEDS: Pantoprazole 40 MG VIAL 80 MG IVP ×2 (09:30→21:32)
[2024-03-03] MEDS: CEFEPIME 2 GM in Normal Saline 100 ML IVPB ×2 (09:30→21:31)
[2024-03-03] MEDS: REMDESIVIR 200 MG in Normal Saline 250 ML 250 MG IVPB (09:30)
[2024-03-03 09:34] LABS: Anion Gap 10.5 mmol/L (3-11); CO2 18.5 mmol/L (21.0-32.0); CREATININE 1.6 mg/dL (0.70-1.30); Calcium 9.1 mg/dL (8.5-10.1); Chloride 99 mmol/L (98-107); Estimated GFR 47.23 (mL/min/1.73m2); Glucose 189 mg/dL (74-106); Potassium 5.9 mmol/L (3.5-5.1); Sodium 128 mmol/L (136-145)
[2024-03-03 09:35] LABS: BUN 86 mg/dL (7-18)
[2024-03-03] MEDS: DOXYCYCLINE 100 MG in Normal Saline 100 ML IVPB ×2 (10:05→22:20)
--- NOTE | 2024-03-03 10:49 | W.PM.PROGNOT ---
Date of Service Date of service: 03/03/24 Time of Service: 10:54 Assessment and Plan Assessment and plan (1) Septic shock: Status: Acute Assessment and plan: Sepsis with hypotension despite now adequate fluid rescuscutation, mulitple pressors Did not do well well adding dobutamine to norepinephrine and vasopressin. Added epinephrine this morning per Gu[place]upe recommendation. Possible sources include bilateral pneumonia, COVID, UTI. I don't think genital pressure sore is source. Started on pip/tazo and vancomycin 03/02, change PIP/tazo to cefepime 03/03. Blood, urine, sputum cultures pending. Fluid replete on POCUS this morning, echocardiogram done formally as POCUS very limited. still acidotic, consider bicarb pushes if HCO3 below 15 (2) COVID-19: Status: Acute Assessment and plan: Given not a clear serious bacterial infection with nl lactate and procalcitonin but profound hypoxia Dr. Vargas thought COVID-19 infection playing significant role and remdesivir started 03/03 AM. Cannot take po baricitinib, tocilizumab not available. Steroid changed from hydrocortisone to dexamethasone per Alicia. Pt urged to try proning but declines (3) Pneumonia: Status: Acute Assessment and plan: Possible infectious source, treating as above (4) Hypoxic respiratory failure: Status: Acute Assessment and plan: FiO2 on HFNC increased overnight. (5) Acute hyperkalemia: Status: Acute Assessment and plan: Treated with insulin, glucose, calcium gluconate, and kayexalate along with hydration. (6) Acute hyponatremia: Status: Acute Assessment and plan: Given two boluses of 100ml 3% saline, was initially hypovolemic and given isotonic fluids as well. Improved to 128 and stabilized here which is appropriate. (7) Type 2 diabetes mellitus: Assessment and plan: insulin drip given acuity of illness, came off this morning. Sugar are again up a little, will give glargine along with correction. (8) Pressure ulcer: Status: Acute Assessment and plan: on penis from chronic hood, wound care (9) Gastrointestinal hemorrhage with melena: Status: Acute Assessment and plan: heme+ stools this morning, though no severe bleeding. Given clot risk we have not stopped enoxaparin at this point. Given high dose PPI. (10) SALINAS (acute kidney injury): Status: Acute Assessment and plan: Improving with good urine output. (11) Anemia: Status: Chronic Assessment and plan: acute on chronic, monitor in PM and stop heparin if trending down (12) UTI (urinary tract infection): Status: Acute Assessment and plan: Replaced hood this morning. Resend cultures. (13) DVT prophylaxis: Status: Acute Assessment and plan: higher dose LMWH given BMI, high risk of clot with COVID (14) Goals of care, counseling/discussion: Status: Acute Assessment and plan: Mr. Dixon confirms DNR/DNI. We discussed poor prognosis with multiple pressors and hypoxia. He has never wanted very aggressive care. 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 We discussed symptomatic care as well. He is not in pain now. After that discussion, his MAP did look a little better off epinephrine. We will consider clinical outlook before making any shifts in goals of care this afternoon/evening. Exam Narrative Exam Narrative: GEN: Alert and oriented to self only, but able to understand and respond to direct questions. On BiPAP. Cooperative, voice is coarse. Able to speak in short sentences, speech stilted (baseline dysphasia) LUNGS: Diffuse course rhonchorous breath sounds, no focal rales, moving air bilaterally CV: RRR with no murmurs, gallops, or rubs though limited by habitus ABD: soft, NT/ND EXT: no cyanosis, clubbing. Legs with 1+ heidi edema, somewhat woody. Not tender SKIN: No rashes or open wounds x ulceration on right side of head of penis around hood Objective Last Vital Signs Temp 37.0 C 03/03/24 04:00 Pulse 111 H 03/03/24 08:40 Resp 19 03/03/24 08:40 BP 103/46 L 03/03/24 03:29 Pulse Ox 92 03/03/24 09:10 Laboratory Results - last 24 hr 03/02/24 03/02/24 03/02/24 14:20 16:23 17:02 WBC 16.22 H RBC 2.95 L Hgb 8.9 L Hct 28.5 L MCV 97 H MCH 30.2 MCHC 31.2 L RDW 15.3 H Plt Count 400 MPV 8.6 Immature Gran % 1.7 Neutrophils % 80.5 Band Neutrophils % Lymphocytes % 9.4 Monocytes % 8.1 Eosinophils % 0.1 Basophils % 0.2 Metamyelocytes % Nucleated RBC % 0.0 Absolute Neutrophils 13.06 H Absolute Lymphocytes 1.52 Absolute Monocytes 1.31 H Absolute Eosinophils 0.02 Absolute Basophils 0.03 RBC Morphology Hypochromasia Anisocytosis Sample Site ABG Sample Site ABG pH ABG pCO2 ABG pO2 ABG HCO3 ABG Total CO2 ABG O2 Saturation ABG Base Excess VBG pH 7.26 L VBG pCO2 44 VBG pO2 39 VBG HCO3 20 L VBG Total CO2 19 L VBG O2 Saturation 69 VBG Base Excess -7 L VBG Lactate 1.2 Oxygen Liter Flow FiO2 Sodium 120 L* 121 L* Potassium 7.5 H* 6.9 H* Chloride 91 L 92 L Carbon Dioxide 21.3 20.3 L Anion Gap 7.7 8.7 BUN 130 H* 128 H* Creatinine 1.9 H 2.2 H Est GFR (CKD-EPI 2020) 38.42 32.23 Glucose 170 H 174 H Calcium 9.4 9.5 Total Bilirubin 0.3 AST 8 L ALT 12 L Alkaline Phosphatase 58 Troponin I < 50 NT-Pro-B Natriuret Pep 85 Total Protein 7.7 Albumin 2.3 L Procalcitonin 1.6 Urine Color Urine Clarity Urine pH Ur Specific [place] Urine Protein Urine Ketones Urine Blood Urine Nitrite Urine Bilirubin Urine Urobilinogen Ur Leukocyte Esterase Urine RBC Urine WBC Ur Epithelial Cells Urine Crystals Urine Bacteria Urine Casts Urine Mucus Ur Culture Indicated? Urine Glucose COVID-19 Source Nasopharynx SARS-CoV-2 (PCR) Positive A Influenza Type A (PCR) Negative Influenza Type B (PCR) Negative RSV (PCR) Negative MRSA (TEM-PCR) Add-On Test Request DONE 03/02/24 03/02/24 03/02/24 17:03 17:08 17:37 WBC RBC Hgb Hct MCV MCH MCHC RDW Plt Count MPV Immature Gran % Neutrophils % Band Neutrophils % Lymphocytes % Monocytes % Eosinophils % Basophils % Metamyelocytes % Nucleated RBC % Absolute Neutrophils Absolute Lymphocytes Absolute Monocytes Absolute Eosinophils Absolute Basophils RBC Morphology Hypochromasia Anisocytosis Sample Site ABG Sample Site ABG pH ABG pCO2 ABG pO2 ABG HCO3 ABG Total CO2 ABG O2 Saturation ABG Base Excess VBG pH VBG pCO2 VBG pO2 VBG HCO3 VBG Total CO2 VBG O2 Saturation VBG Base Excess VBG Lactate Oxygen Liter Flow FiO2 Sodium Potassium Chloride Carbon Dioxide Anion Gap BUN Creatinine Est GFR (CKD-EPI 2020) Glucose Calcium Total Bilirubin AST ALT Alkaline Phosphatase Troponin I < 50 NT-Pro-B Natriuret Pep Total Protein Albumin Procalcitonin Urine Color Yellow Urine Clarity Sl Cloudy Urine pH 5.0 Ur Specific [place] 1.015 Urine Protein Negative Urine Ketones Negative Urine Blood Small H Urine Nitrite Negative Urine Bilirubin Small H Urine Urobilinogen 0.2 Ur Leukocyte Esterase Moderate H Urine RBC 5-10 H Urine WBC >50 H Ur Epithelial Cells Few Urine Crystals Negative Urine Bacteria Many Urine Casts Negative Urine Mucus Heavy Ur Culture Indicated? Yes Urine Glucose Negative COVID-19 Source SARS-CoV-2 (PCR) Influenza Type A (PCR) Influenza Type B (PCR) RSV (PCR) MRSA (TEM-PCR) Negative Add-On Test Request 03/02/24 03/02/24 03/02/24 19:30 22:20 23:55 WBC 16.81 H RBC 2.69 L Hgb 8.1 L Hct 26.7 L MCV 99 H MCH 30.1 MCHC 30.3 L RDW 15.5 H Plt Count 419 H MPV 8.8 Immature Gran % Neutrophils % Band Neutrophils % Lymphocytes % Monocytes % Eosinophils % Basophils % Metamyelocytes % Nucleated RBC % Absolute Neutrophils Absolute Lymphocytes Absolute Monocytes Absolute Eosinophils Absolute Basophils RBC Morphology Hypochromasia Anisocytosis Sample Site ABG Sample Site ABG pH ABG pCO2 ABG pO2 ABG HCO3 ABG Total CO2 ABG O2 Saturation ABG Base Excess VBG pH VBG pCO2 VBG pO2 VBG HCO3 VBG Total CO2 VBG O2 Saturation VBG Base Excess VBG Lactate Oxygen Liter Flow FiO2 Sodium 121 L* 122 L* 121 L* Potassium 7.6 H* 6.9 H* 6.9 H* Chloride 93 L 99 98 Carbon Dioxide 19.0 L 16.7 L 18.7 L Anion Gap 9.0 6.3 4.3 BUN 119 H* 107 H* 107 H* Creatinine 2.1 H 1.8 H 1.9 H Est GFR (CKD-EPI 2020) 34.08 41.00 38.42 Glucose 226 H 315 H 345 H Calcium 9.3 8.4 L 9.0 Total Bilirubin AST ALT Alkaline Phosphatase Troponin I NT-Pro-B Natriuret Pep Total Protein Albumin Procalcitonin Urine Color Urine Clarity Urine pH Ur Specific [place] Urine Protein Urine Ketones Urine Blood Urine Nitrite Urine Bilirubin Urine Urobilinogen Ur Leukocyte Esterase Urine RBC Urine WBC Ur Epithelial Cells Urine Crystals Urine Bacteria Urine Casts Urine Mucus Ur Culture Indicated? Urine Glucose COVID-19 Source SARS-CoV-2 (PCR) Influenza Type A (PCR) Influenza Type B (PCR) RSV (PCR) MRSA (TEM-PCR) Add-On Test Request 03/03/24 03/03/24 03/03/24 02:05 04:05 06:05 WBC 16.46 H RBC 2.60 L Hgb 8.0 L Hct 25.8 L MCV 99 H MCH 30.8 MCHC 31.0 L RDW 15.6 H Plt Count 390 MPV 8.5 Immature Gran % See Differential Neutrophils % 84.0 Band Neutrophils % 2 Lymphocytes % 7.0 Monocytes % 6.0 Eosinophils % 0.0 Basophils % 0.0 Metamyelocytes % 1 Nucleated RBC % 0.0 Absolute Neutrophils 14.16 H Absolute Lymphocytes 1.15 L Absolute Monocytes 0.99 H Absolute Eosinophils 0.00 Absolute Basophils 0.00 RBC Morphology See Below Hypochromasia 1+ Anisocytosis 1+ Sample Site ABG Sample Site ABG pH ABG pCO2 ABG pO2 ABG HCO3 ABG Total CO2 ABG O2 Saturation ABG Base Excess VBG pH VBG pCO2 VBG pO2 VBG HCO3 VBG Total CO2 VBG O2 Saturation VBG Base Excess VBG Lactate Oxygen Liter Flow FiO2 Sodium 126 L 128 L 128 L Potassium 6.5 H* 6.3 H* 5.9 H Chloride 98 99 99 Carbon Dioxide 18.4 L 18.2 L 17.9 L Anion Gap 9.6 10.8 11.1 H BUN 102 H* 100 H* 90 H* Creatinine 1.9 H 1.7 H 1.6 H Est GFR (CKD-EPI 2020) 38.42 43.91 47.23 Glucose 295 H 215 H 142 H Calcium 9.2 9.2 8.8 Total Bilirubin AST ALT Alkaline Phosphatase Troponin I NT-Pro-B Natriuret Pep Total Protein Albumin Procalcitonin Urine Color Urine Clarity Urine pH Ur Specific [place] Urine Protein Urine Ketones Urine Blood Urine Nitrite Urine Bilirubin Urine Urobilinogen Ur Leukocyte Esterase Urine RBC Urine WBC Ur Epithelial Cells Urine Crystals Urine Bacteria Urine Casts Urine Mucus Ur Culture Indicated? Urine Glucose COVID-19 Source SARS-CoV-2 (PCR) Influenza Type A (PCR) Influenza Type B (PCR) RSV (PCR) MRSA (TEM-PCR) Add-On Test Request 03/03/24 03/03/24 03/03/24 07:29 09:02 11:29 WBC RBC Hgb Hct MCV MCH MCHC RDW Plt Count MPV Immature Gran % Neutrophils % Band Neutrophils % Lymphocytes % Monocytes % Eosinophils % Basophils % Metamyelocytes % Nucleated RBC % Absolute Neutrophils Absolute Lymphocytes Absolute Monocytes Absolute Eosinophils Absolute Basophils RBC Morphology Hypochromasia Anisocytosis Sample Site Arterial Line ABG Sample Site ABG pH 7.23 L ABG pCO2 36 ABG pO2 73 L ABG HCO3 15 L ABG Total CO2 16 L ABG O2 Saturation 91 L ABG Base Excess -13 L VBG pH 7.19 L* VBG pCO2 42 VBG pO2 53 VBG HCO3 16 L VBG Total CO2 17 L VBG O2 Saturation 78 VBG Base Excess -12 L VBG Lactate Oxygen Liter Flow FiO2 SEE COMMENT Sodium Cancelled 128 L Cancelled Potassium Cancelled 5.9 H Cancelled Chloride Cancelled 99 Cancelled Carbon Dioxide Cancelled 18.5 L Cancelled Anion Gap Cancelled 10.5 Cancelled BUN Cancelled 86 H* Cancelled Creatinine Cancelled 1.6 H Cancelled Est GFR (CKD-EPI 2020) Cancelled 47.23 Cancelled Glucose Cancelled 189 H Cancelled Calcium Cancelled 9.1 Cancelled Total Bilirubin AST ALT Alkaline Phosphatase Troponin I NT-Pro-B Natriuret Pep Total Protein Albumin Procalcitonin Urine Color Urine Clarity Urine pH Ur Specific [place] Urine Protein Urine Ketones Urine Blood Urine Nitrite Urine Bilirubin Urine Urobilinogen Ur Leukocyte Esterase Urine RBC Urine WBC Ur Epithelial Cells Urine Crystals Urine Bacteria Urine Casts Urine Mucus Ur Culture Indicated? Urine Glucose COVID-19 Source SARS-CoV-2 (PCR) Influenza Type A (PCR) Influenza Type B (PCR) RSV (PCR) MRSA (TEM-PCR) Add-On Test Request 03/03/24 Unknown WBC RBC Hgb Hct MCV MCH MCHC RDW Plt Count MPV Immature Gran % Neutrophils % Band Neutrophils % Lymphocytes % Monocytes % Eosinophils % Basophils % Metamyelocytes % Nucleated RBC % Absolute Neutrophils Absolute Lymphocytes Absolute Monocytes Absolute Eosinophils Absolute Basophils RBC Morphology Hypochromasia Anisocytosis Sample Site ABG Sample Site Cancelled ABG pH ABG pCO2 ABG pO2 ABG HCO3 ABG Total CO2 ABG O2 Saturation ABG Base Excess VBG pH VBG pCO2 VBG pO2 VBG HCO3 VBG Total CO2 VBG O2 Saturation VBG Base Excess VBG Lactate Oxygen Liter Flow Cancelled FiO2 Sodium Potassium Chloride Carbon Dioxide Anion Gap BUN Creatinine Est GFR (CKD-EPI 2020) Glucose Calcium Total Bilirubin AST ALT Alkaline Phosphatase Troponin I NT-Pro-B Natriuret Pep Total Protein Albumin Procalcitonin Urine Color Urine Clarity Urine pH Ur Specific [place] Urine Protein Urine Ketones Urine Blood Urine Nitrite Urine Bilirubin Urine Urobilinogen Ur Leukocyte Esterase Urine RBC Urine WBC Ur Epithelial Cells Urine Crystals Urine Bacteria Urine Casts Urine Mucus Ur Culture Indicated? Urine Glucose COVID-19 Source SARS-CoV-2 (PCR) Influenza Type A (PCR) Influenza Type B (PCR) RSV (PCR) MRSA (TEM-PCR) Add-On Test Request Time Spent with Patient Time Spent with Patient: >50 minutes Time was spent: preparing to see the patient(eg.review tests), obtaining and/or reviewing separately otained hiistory, ordering medications,tests, procedures, referring, communicating with other health healthcare network pricing consultant, indepentently interpreting results, counseling the patient and care coordination
[2024-03-03] MEDS: Ipratropium/Albuterol 4 GM 120 PUFF INH IH ×3 (11:34→19:54)
--- NOTE | 2024-03-03 11:57 | CHAPLAIN ---
Luann was living independently in [place] until last month. He's been at [facility] most recently and was admitted here yesterday. He is COVID positive. His sister has been contacted and informed that Luann isn't doing well. She and other family members plan to be in around 1:00 p.m. I will look for them then. Luann is on BiPaP and having trouble communicating since a stroke last month.
[2024-03-03] MEDS: Insulin Aspart 300 UNITS/3 ML PEN SC ×2 (12:17→16:57)
[2024-03-03 14:04] LABS: HCT 26.3 % (40.0-50.0)
[2024-03-03 14:06] LABS: ESR 41 mm/hr (0-20)
--- NOTE | 2024-03-03 14:10 | CHAPLAIN ---
Luann is off BiPap now and on a nasal canular. He was visiting with his two sisters when I stopped in. Luann is the oldest of the three. Their parents have . Luann is disabled from a stroke in his 30s. He told me he's lived alone in an apartment in [place] for 30 years. He was most recently at [employer]. 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 Luann talked about the different jobs he's had. 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 He sometimes got stuck on a phrase or sentence and would repeat that a few times. He sisters seem like strong supports. They said his brothers in law and nieced and nephews will be in to visit him too. I let Luann, and his sisters know that motorcycle deliverer is available 03/05 and if Luann would like company at any point, he can ask for the java websphere developer to come in, or they can request the java websphere developer for him. l
[2024-03-03 14:17] LABS: C-Reactive Protein 10.85 mg/dL (<or=0.5)
[2024-03-03 14:40] LABS: Ferritin 654 ng/mL (26-388)
[2024-03-03 15:26] LABS: INR 1.1 (0.9-1.1); Prothrombin Time 10.6 sec (9.1-11.1)
[2024-03-03 15:30] LABS: Ammonia 24 umol/L (11-32)
[2024-03-03 15:51] LABS: D-Dimer 4832 ng/mlFEU (<500)
[2024-03-03] MEDS: VASOPRESSIN 50 UNITS in Normal Saline 497.5 ML 18 UNITS IV (16:57)
[2024-03-03] MEDS: Norepinephrine in D5W 8 MG/250 ML BAG 65.625 MG IV (17:08)
[2024-03-03 17:37] LABS: Anion Gap 11.3 mmol/L (3-11); BUN 71 mg/dL (7-18); CO2 20.7 mmol/L (21.0-32.0); CREATININE 1.4 mg/dL (0.70-1.30); Calcium 9.4 mg/dL (8.5-10.1); Chloride 100 mmol/L (98-107); Estimated GFR 55.43 (mL/min/1.73m2); Glucose 221 mg/dL (74-106); Sodium 132 mmol/L (136-145)
[2024-03-03 21:53] LABS: Fibrinogen 676 mg/dL (171-384)
[2024-03-04] VITALS (147 sets, daily range): BP systolic 77–136; BP diastolic 34–114; PULSE 69–175; RESP 8–32; TEMP 31–36.9; O2SAT 89–98
[2024-03-04] MEDS: Norepinephrine in D5W 8 MG/250 ML BAG 4.688 MG IV (01:33)
[2024-03-04 01:41] LABS: Anion Gap 10.7 mmol/L (3-11); BUN 61 mg/dL (7-18); CO2 21.3 mmol/L (21.0-32.0); CREATININE 1.1 mg/dL (0.70-1.30); Calcium 9.2 mg/dL (8.5-10.1); Chloride 105 mmol/L (98-107); Estimated GFR 74.04 (mL/min/1.73m2); Glucose 125 mg/dL (74-106); Potassium 4.3 mmol/L (3.5-5.1); Sodium 137 mmol/L (136-145)
[2024-03-04] MEDS: VANCOMYCIN/WATER (PEG) 750 MG/150 ML BAG 150 MG IVPB (03:19)
[2024-03-04] MEDS: Normal Saline Flush 10 ML SYR IVP ×5 (05:17→22:18)
[2024-03-04 05:35] LABS: BE (Venous) -7 mmol/L (-2-3); HCO3 (Venous) 20 mmol/L (23-28); O2 Sat (Venous) 90 %; TCO2 (Venous) 20 mmol/L (24-29); pCO2 (Venous) 43 mmHg (41-51); pH (Venous) 7.28 (7.31-7.41); pO2 (Venous) 58 mmHg
[2024-03-04 05:36] LABS: ESR 53 mm/hr (0-20)
[2024-03-04 06:05] LABS: Ferritin 584 ng/mL (26-388)
[2024-03-04 06:19] LABS: C-Reactive Protein 7.36 mg/dL (<or=0.5); PHOSPHORUS 2.6 mg/dL (2.6-4.7)
--- NOTE | 2024-03-04 07:30 | RT.EKG_ITS ---
APPROVED REPORT Exam: Resting ECG Reason for Exam: Heart Rate Rhythm change with RVR Patient Location: I HR:144 bpm ECG Measurements Heart Rate 144 [address] [place] [id number] P [id number] QRSd 90 QRS 5 QT 244 T 214 QTc 378 Conclusion Atrial fibrillation...V-rate 90-185, irreg A-activity Repolarization abnormality, prob rate related...ST dep, T neg, tachycardia
[2024-03-04] MEDS: Ipratropium/Albuterol 4 GM 120 PUFF INH IH ×2 (08:13→11:45)
[2024-03-04 08:18] LABS: HCT 25.4 % (40.0-50.0); HGB 7.8 g/dL (13.5-17.5); MCH 30.2 pg (27.0-33.0); MCHC 30.7 % (32.0-36.0); MCV 98 fL (80-95); MPV 9.1 fL (8.0-11.0); Platelet Count 461 10^3/uL (130-400); RBC 2.58 10^6/uL (4.36-5.78); RDW 15.8 % (11.8-14.1); RDW-SD 56.8 fL; WBC 14.58 10^3/uL (4.4-10.8)
[2024-03-04 08:19] LABS: Anion Gap 10.8 mmol/L (3-11); BUN 53 mg/dL (7-18); CO2 21.2 mmol/L (21.0-32.0); Calcium 9.7 mg/dL (8.5-10.1); Chloride 103 mmol/L (98-107); Estimated GFR 83.01 (mL/min/1.73m2); Glucose 187 mg/dL (74-106); Sodium 135 mmol/L (136-145)
--- NOTE | 2024-03-04 08:32 | PGE_ITS ---
Date of Service Date of service: 03/04/24 Time of Service: 08:32 Assessment and Plan Assessment and plan (1) Atrial fibrillation with rapid ventricular response: Status: Acute Assessment and plan: New this morning, likely related to prolonged pressors and sepsis. Blood pressure did not clearly drop with conversion to atrial fibrillation. No cardioversion indicated. It is not clear this is c/w his goals of care. Some changes on EKG, get troponins, though I would hesitate to anticoagulate him with active GI bleed Try transitioning from norepi to phenlyephrine to avoid beta stimulation If this doesn't get him at least below 130 bpm, add amiodarone Add TSH to labs as not done recently (2) Septic shock: Status: Acute Assessment and plan: Sepsis with hypotension despite now adequate fluid rescuscutation, despite mulitple pressors Did not do well well adding dobutamine 03/02 to norepinephrine and vasopressin. Added epinephrine 03/03 for per Gu[place]upe recommendation, titrated off later in the day. Possible sources include bilateral pneumonia, COVID, UTI. I don't think genital pressure sore is source. Started on pip/tazo and vancomycin 03/02, changed PIP/tazo to cefepime 03/03. Blood growing GPC. Urine klebsiela. Sputum cultures pending. Continue cefe pime/vanco with culture sensitivities pending. CRP did decrease, acidosid improved from 03/03 Fluid replete on POCUS 03/03, echocardiogram confirms normal LV and RV function, moderate . (3) COVID-19: Status: Acute Assessment and plan: Given not a clear serious bacterial infection with nl lactate and procalcitonin but profound hypoxia Dr. Vargas thought COVID-19 infection playing significant role and remdesivir started 03/03 AM. Cannot take po baricitinib, tocilizumab not available. Steroid changed from hydrocortisone to dexamethasone per Alicia. Pt urged to try proning but he is still resistant to repositioning. (4) Pneumonia: Status: Acute Assessment and plan: Possible infectious source, treating as above (5) Hypoxic respiratory failure: Status: Acute Assessment and plan: FiO2 on HFNC increased overnight. (6) Acute hyperkalemia: Status: Acute Assessment and plan: Treated with insulin, glucose, calcium gluconate. Now normalized. (7) Acute hyponatremia: Status: Acute Assessment and plan: Given two boluses of 100ml 3% saline, was initially hypovolemic and given isotonic fluids as well. Now normalized (8) Type 2 diabetes mellitus: Assessment and plan: insulin drip given acuity of illness, came off 03/03. Started glargine along with low dose sliding scale. (9) Pressure ulcer: Status: Acute Assessment and plan: on penis from chronic hood, wound care also on bilateral buttocks, change positions in bed to offload, wound care. Rectal bag today to keep these clean (10) Gastrointestinal hemorrhage with melena: Status: Acute Assessment and plan: heme+ black stools starting 03/03, though no severe bleeding. Given clot risk we have not stopped enoxaparin at this point. Given high dose PPI. (11) SALINAS (acute kidney injury): Status: Acute Assessment and plan: Improving with good urine output. (12) Anemia: Status: Chronic Assessment and plan: acute on chronic, monitor in PM and stop heparin if trending down (13) UTI (urinary tract infection): Status: Acute Assessment and plan: Replaced hood 03/03. Resent cultures, urine growing klebsiela. (14) DVT prophylaxis: Status: Acute Assessment and plan: higher dose LMWH given BMI, high risk of clot with COVID (15) Goals of care, counseling/discussion: Status: Acute Assessment and plan: Mr. Dixon confirmed DNR/DNI. 03/03 discussed poor prognosis with multiple pressors and hypoxia. He has never wanted very aggressive care. 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 Clinical status did improve 03/03 PM so we proceeded with intensive care. He did not clearly want to withdrawal care this morning, Unfortunately, we don't have palliative care consult this weekend. Continue discussion with patient and family later today. Subjective Subjective Interval history since last seen: 24 hr events: started remdesivir for COVID norepineprhine added then titrated off On Bipap during day but transitioned back to HFNC in afternoon and overnight Insulin drip discontinued, glargine started started having black heme positive stools, pantoprazole started discussed SUPERVISOR TRANSFERRING AND BOXING option with family, this was deferred as we saw some clinical improvement 03/03 Rapid rate noted this morning Patient has been coughing less, less phlegm. stools as above. He denies chest pain, fevers, nausea on direct questioning. When asked if he wants to have all the interventions we are doing, he eventual said do what you have to do. Exam Narrative Exam Narrative: GEN: Alert and oriented to self only, knows he is in the hospital, but states [place]. He is able to understand and respond to direct questions. On HFNC. Cooperative, voice is coarse. Able to speak in short sentence fragments, speech stilted (baseline dysphasia) LUNGS: Less course breath sounds, no focal rales, moving some air bilaterally but diffusely deminished. CV: RRR with no murmurs, gallops, or rubs though limited by habitus ABD: soft, non-distended. Mild LLQ tenderness to deep palpation. EXT: no cyanosis, clubbing. Legs with 1+ heidi edema, hyperpigmented shins. extremities warm with cap refill <2 seconds toes Rectal: no masses, soft dark stool material, no red blood SKIN: No rashes. ulceration on right side of head of penis around hood. Bilateral stage 2 pressure sores on buttocks (today was the first time I got a good look at this area, these were present on admission per sister) Objective Last Vital Signs Temp 36.4 C L 03/04/24 04:43 Pulse 144 H 03/04/24 08:01 Resp 15 03/04/24 08:01 BP 100/47 L 03/04/24 08:01 Pulse Ox 95 03/04/24 08:01 Laboratory Results - last 24 hr 03/03/24 03/03/24 03/03/24 09:02 09:30 13:54 Hgb 8.0 L Hct 26.3 L ESR 41 H PT INR D-Dimer Sample Site Arterial Line ABG Sample Site ABG pH 7.23 L ABG pCO2 36 ABG pO2 73 L ABG HCO3 15 L ABG Total CO2 16 L ABG O2 Saturation 91 L ABG Base Excess -13 L VBG pH 7.19 L* VBG pCO2 42 VBG pO2 53 VBG HCO3 16 L VBG Total CO2 17 L VBG O2 Saturation 78 VBG Base Excess -12 L Oxygen Liter Flow FiO2 SEE COMMENT Sodium 128 L Cancelled Potassium 5.9 H Cancelled Chloride 99 Cancelled Carbon Dioxide 18.5 L Cancelled Anion Gap 10.5 Cancelled BUN 86 H* Cancelled Creatinine 1.6 H Cancelled Est GFR (CKD-EPI 2020) 47.23 Cancelled Glucose 189 H Cancelled Calcium 9.1 Cancelled Phosphorus Magnesium Ferritin 654 H Ammonia C-Reactive Protein 10.85 H Random Vancomycin 03/03/24 03/03/24 03/03/24 15:00 17:20 Unknown Hgb Hct ESR PT 10.6 INR 1.1 D-Dimer 4832 H Sample Site ABG Sample Site Cancelled ABG pH ABG pCO2 ABG pO2 ABG HCO3 ABG Total CO2 ABG O2 Saturation ABG Base Excess VBG pH VBG pCO2 VBG pO2 VBG HCO3 VBG Total CO2 VBG O2 Saturation VBG Base Excess Oxygen Liter Flow Cancelled FiO2 Sodium 132 L Potassium 5.0 Chloride 100 Carbon Dioxide 20.7 L Anion Gap 11.3 H BUN 71 H Creatinine 1.4 H Est GFR (CKD-EPI 2020) 55.43 Glucose 221 H Calcium 9.4 Phosphorus Magnesium Ferritin Ammonia 24 C-Reactive Protein Random Vancomycin 03/04/24 03/04/24 03/04/24 01:25 05:30 05:35 Hgb Hct ESR 53 H PT INR D-Dimer Sample Site ABG Sample Site ABG pH ABG pCO2 ABG pO2 ABG HCO3 ABG Total CO2 ABG O2 Saturation ABG Base Excess VBG pH 7.28 L VBG pCO2 43 VBG pO2 58 VBG HCO3 20 L VBG Total CO2 20 L VBG O2 Saturation 90 VBG Base Excess -7 L Oxygen Liter Flow FiO2 Sodium 137 135 L Potassium 4.3 4.0 Chloride 105 103 Carbon Dioxide 21.3 21.2 Anion Gap 10.7 10.8 BUN 61 H 53 H Creatinine 1.1 1.0 Est GFR (CKD-EPI 2020) 74.04 83.01 Glucose 125 H 187 H Calcium 9.2 9.7 Phosphorus 2.6 Magnesium 2.0 Ferritin 584 H Ammonia C-Reactive Protein 7.36 H Random Vancomycin Cancelled Objective Narrative Objective Narrative: EKG: Atril fibrillation at 143 BPM, new lateral T-wave inversions and borderline ST depression in V4-6 Time Spent with Patient Time Spent with Patient: >50 minutes Time was spent: preparing to see the patient(eg.review tests), obtaining and/or reviewing separately otained hiistory, ordering medications,tests, procedures, referring, communicating with other health care team assistant, indepentently interpreting results and counseling the patient
[2024-03-04 08:55] LABS: Absolute Eosinophil Count 0.15 10^3/uL (0.0-0.7); Absolute Lymphocyte Count 1.02 10^3/uL (1.2-3.4); Absolute Monocyte Count 1.31 10^3/uL (0.1-0.8); Anisocytosis 1+; Bands % 2 %; Diff Comment Manual Differential; Hypochromasia 1+
[2024-03-04 09:01] LABS: Lab Add On Test DONE
[2024-03-04] MEDS: Norepinephrine in D5W 8 MG/250 ML BAG 50.625 MG IV (09:21)
[2024-03-04] MEDS: Enoxaparin 60 MG/0.6 ML SYR SC ×2 (09:22→19:57)
[2024-03-04] MEDS: CEFEPIME 2 GM in Normal Saline 100 ML IVPB ×2 (09:22→20:04)
[2024-03-04] MEDS: Pantoprazole 40 MG VIAL 80 MG IVP ×2 (09:22→20:01)
[2024-03-04] MEDS: Dexamethasone 10 MG/ML VIAL IVP (09:23)
[2024-03-04] MEDS: DOXYCYCLINE 100 MG in Normal Saline 100 ML IVPB ×2 (09:45→21:22)
[2024-03-04 09:55] LABS: Troponin I < 50 ng/L (< or =60)
[2024-03-04] MEDS: REMDESIVIR 100 MG in Normal Saline 250 ML 250 MG IVPB (12:15)
[2024-03-04] MEDS: Insulin Aspart 300 UNITS/3 ML PEN SC ×2 (12:15→19:35)
[2024-03-04 13:35] LABS: Vancomycin, Random 24.8 ug/mL
[2024-03-04 13:38] LABS: Troponin I < 50 ng/L (< or =60)
[2024-03-04] MEDS: Amiodarone in Dextrose 360 MG/200 ML BAG 500 MG IV (17:17)
[2024-03-04] MEDS: VANCOMYCIN/WATER (PEG) 1.25 GM/250 ML BAG IV (17:26)
[2024-03-04] MEDS: Normal Saline 500 ML IV (17:57)
[2024-03-04] MEDS: Insulin Glargine 300 UNITS/3 ML PEN 25 UNITS SC (20:01)
[2024-03-04] MEDS: Amiodarone in Dextrose 360 MG/200 ML BAG 33.333 MG IV (20:35)
[2024-03-04] MEDS: VASOPRESSIN 50 UNITS in Normal Saline 497.5 ML 18 UNITS IV (21:14)
[2024-03-04] MEDS: MORPHine 2 MG/ML SYR IVP (22:17)
[2024-03-04 22:53] LABS: Legionella Ag Detection Urine Negative (Negative)
[2024-03-05] VITALS (64 sets, daily range): BP systolic 98–142; BP diastolic 52–94; PULSE 74–157; RESP 8–26; TEMP 31–37.5; O2SAT 91–99
--- NOTE | 2024-03-05 | NUR.NOTE ---
Nursing Note: Noted that patient has finger sticks ordered Q6H but insulin coverage AC&HS
[2024-03-05] MEDS: MORPHine 2 MG/ML SYR IVP (01:50)
--- NOTE | 2024-03-05 02:00 | NUR.NOTE ---
Nursing Note: Finger stick rechecked due to Lantus administration @ approximately 8pm. Patient is NPO at this time.
[2024-03-05] MEDS: Amiodarone in Dextrose 360 MG/200 ML BAG 16.667 MG IV ×2 (04:08)
[2024-03-05] MEDS: Normal Saline Flush 10 ML SYR IVP ×5 (05:00→23:42)
[2024-03-05 06:26] LABS: ESR 64 mm/hr (0-20)
[2024-03-05 06:38] LABS: Anion Gap 10.3 mmol/L (3-11); BUN 29 mg/dL (7-18); CO2 25.7 mmol/L (21.0-32.0); CREATININE 0.8 mg/dL (0.70-1.30); Calcium 9.4 mg/dL (8.5-10.1); Chloride 110 mmol/L (98-107); Estimated GFR 97.61 (mL/min/1.73m2); Glucose 156 mg/dL (74-106); Potassium 3.1 mmol/L (3.5-5.1); Sodium 146 mmol/L (136-145)
[2024-03-05 06:44] LABS: C-Reactive Protein 4.15 mg/dL (<or=0.5); Magnesium 1.7 mg/dL (1.8-2.4); PHOSPHORUS < 2.0 mg/dL (2.6-4.7)
[2024-03-05 07:13] LABS: Ferritin 496 ng/mL (26-388)
[2024-03-05] MEDS: Ipratropium/Albuterol 4 GM 120 PUFF INH IH ×4 (08:35→20:50)
[2024-03-05] MEDS: Pantoprazole 40 MG VIAL 80 MG IVP ×2 (08:44→20:04)
[2024-03-05] MEDS: Dexamethasone 10 MG/ML VIAL IVP (08:44)
[2024-03-05] MEDS: CEFEPIME 2 GM in Normal Saline 100 ML IVPB (08:44)
[2024-03-05] MEDS: Insulin Aspart 300 UNITS/3 ML PEN SC ×2 (08:45→17:33)
[2024-03-05] MEDS: Enoxaparin 60 MG/0.6 ML SYR SC (08:45)
[2024-03-05 09:38] LABS: HCT 24.6 % (40.0-50.0); HGB 7.4 g/dL (13.5-17.5); MCH 29.7 pg (27.0-33.0); MCHC 30.1 % (32.0-36.0); MCV 99 fL (80-95); Nucleated RBC 0.4 % (0.0-0.3); Platelet Count 393 10^3/uL (130-400); RBC 2.49 10^6/uL (4.36-5.78); RDW 16.2 % (11.8-14.1); WBC 10.38 10^3/uL (4.4-10.8)
[2024-03-05] MEDS: DOXYCYCLINE 100 MG in Normal Saline 100 ML IVPB ×2 (10:00→21:23)
[2024-03-05 10:01] LABS: Absolute Lymphocyte Count 0.93 10^3/uL (1.2-3.4); Absolute Monocyte Count 0.52 10^3/uL (0.1-0.8); Absolute Neutrophil Count 8.51 10^3/uL (1.2-6.7); Bands % 5 %
[2024-03-05 10:02] LABS: Anisocytosis 1+; Diff Comment Manual Differential; Hypochromasia 1+; Metamyelocytes % 3; Myelocytes % 1; Polychromasia Present
[2024-03-05] MEDS: POTASSIUM CHLORIDE 20 MEQ/100 ML BAG 50 MEQ IVINF ×2 (10:22→12:07)
[2024-03-05] MEDS: MAGNESIUM SULFATE 2 GM/50 ML BAG IVINF (10:22)
--- NOTE | 2024-03-05 10:55 | W.PM.PROGNOT ---
Date of Service Date of service: 03/05/24 Time of Service: 10:57 Assessment and Plan Assessment and plan (1) Atrial fibrillation with rapid ventricular response: Status: Acute Assessment and plan: New 03/04, likely related to prolonged pressors and sepsis. Blood pressure did not clearly drop with conversion to atrial fibrillation. No cardioversion indicated. Some changes on EKG, troponins negative. now off pressors. normal TSH Poor response to amiodarone Tolerated diltiazem conservative bolus, did bring rate down to 110. Will rebolus and start drip. (2) Septic shock: Status: Acute Assessment and plan: Sepsis with hypotension despite adequate fluid rescuscutation, despite mulitple pressors norepinephrine started in ED. Did not do well well adding dobutamine 03/02, added vasopressin. Added epinephrine 03/03 for per Alicia recommendation, titrated off later in the day. Possible sources include bilateral pneumonia, COVID, UTI. I don't think genital pressure sore is source. Started on pip/tazo and vancomycin 03/02, changed PIP/tazo to cefepime 03/03, back to pip/tazo based on culture of urine Blood growing coag negative staph, final still pending. Urine resistant klebsiela. . Continue pip/tazo and vanco with culture sensitivities pending. CRP, WBC, and ferritin all trended down. acidosis resolved 03/04 Fluid replete on POCUS 03/03, echocardiogram confirms normal LV and RV function, moderate . now resolved. (3) COVID-19: Status: Acute Assessment and plan: Given not a clear serious bacterial infection with nl lactate and procalcitonin but profound hypoxia Dr. Vargas thought COVID-19 infection playing significant role and remdesivir started 03/03 AM. Cannot take po baricitinib, tocilizumab not available. Steroid changed from hydrocortisone to dexamethasone per Alicia. Finish remdesivir through 03/07. (4) Pneumonia: Status: Acute Assessment and plan: Possible infectious source, treating as above (5) Hypoxic respiratory failure: Status: Acute Assessment and plan: now down to 1 liter NC. Much improved. (6) Acute hyperkalemia: Status: Acute Assessment and plan: Treated with insulin, glucose, calcium gluconate. Now normalized. (7) Acute hyponatremia: Status: Acute Assessment and plan: Given two boluses of 100ml 3% saline, was initially hypovolemic and given isotonic fluids as well. Now normalized (8) Type 2 diabetes mellitus: Assessment and plan: insulin drip given acuity of illness, came off 03/03. Started glargine along with low dose sliding scale. (9) Pressure ulcer: Status: Acute Assessment and plan: on penis from chronic hood, wound care also on bilateral buttocks, change positions in bed to offload, wound care. Rectal bag today to keep these clean (10) Gastrointestinal hemorrhage with melena: Status: Acute Assessment and plan: heme+ black stools starting 03/03, though no severe bleeding. Given clot risk we did not stop enoxaparin initially, but stopped 03/05 after drop in hgb to 7.4 Continue high dose PPI. (11) SALINAS (acute kidney injury): Status: Acute Assessment and plan: Resolved (12) Anemia: Status: Chronic Assessment and plan: acute on chronic, monitor daily, transfuse if <7% (13) UTI (urinary tract infection): Status: Acute Assessment and plan: Replaced hood 03/03. Resent cultures, urine growing klebsiela, treatment as above. (14) DVT prophylaxis: Status: Acute Assessment and plan: to TEDs/SCDs given hgb dropping wiht melena (15) Goals of care, counseling/discussion: Status: Acute Assessment and plan: Mr. Dixon confirmed DNR/DNI. He does look like he is pulling through this episode. I met with patient and sisters this afternoon, they want him to work hard to mobilize at rehab. LEXX was a setback, stopped doing PT. He wants to get home even if he needs wheelchair, wants to be able to transfer, toilet, etc on his own. He has a lift chair they purchased now at rehab. Subjective Subjective Patient reports: denies vomiting or fever Interval history since last seen: 24 hr events: - went into atrial fibrillation. norepi transitioned to phenylephrine, started on amiodarone IV for rate - stool bag placed - phenylephrine tapered off around 2am. Vasopressin off this morning - oxygen weaned down to NC overnight - in pain with repositioning, morphine prn 2mg ordered Denies pain at rest. Denies chest pain or shortness of breath, doesn't feel palpitations. He was able to takes sips of fluids. Still black liquid stool in bag Exam Narrative Exam Narrative: GEN: Alert. He is able to understand and respond to direct questions. On nasal cannula. Cooperative, voice is coarse. Able to speak in short sentence fragments, speech stilted (baseline dysphasia) LUNGS: No wheeze or rales, moving more air bilaterally but diffusely somewhat deminished. CV: irregular, tachycardic, with no murmurs, gallops, or rubs though limited by habitus ABD: soft, non-distended, not tender EXT: no cyanosis, clubbing. Legs with 1+ heidi edema, hyperpigmented shins. Objective Last Vital Signs Temp 36.2 C L 03/05/24 08:05 Pulse 133 H 03/05/24 08:05 Resp 12 03/05/24 06:01 BP 118/65 03/05/24 06:01 Pulse Ox 95 03/05/24 08:36 Laboratory Results - last 24 hr 03/04/24 03/04/24 03/05/24 05:30 13:10 05:40 WBC 10.38 RBC 2.49 L Hgb 7.4 L Hct 24.6 L MCV 99 H MCH 29.7 MCHC 30.1 L RDW 16.2 H Plt Count 393 MPV 9.0 Immature Gran % See Differential Neutrophils % 77.0 Band Neutrophils % 5 Lymphocytes % 9.0 Monocytes % 5.0 Eosinophils % 0.0 Basophils % 0.0 Metamyelocytes % 3 Myelocytes % 1 Nucleated RBC % 0.4 H Absolute Neutrophils 8.51 H Absolute Lymphocytes 0.93 L Absolute Monocytes 0.52 Absolute Eosinophils 0.00 Absolute Basophils 0.00 RBC Morphology See Below Polychromasia Present Hypochromasia 1+ Anisocytosis 1+ ESR 64 H Sodium 146 H D Potassium 3.1 L Chloride 110 H Carbon Dioxide 25.7 Anion Gap 10.3 BUN 29 H Creatinine 0.8 Est GFR (CKD-EPI 2020) 97.61 Glucose 156 H Calcium 9.4 Phosphorus < 2.0 L Magnesium 1.7 L Ferritin 496 H Troponin I < 50 C-Reactive Protein 4.15 H Random Vancomycin 24.8 ABO/Rh O Positive Blood Type Recheck O Positive Antibody Screen NEGATIVE Time Spent with Patient Time Spent with Patient: >50 minutes Time was spent: preparing to see the patient(eg.review tests), obtaining and/or reviewing separately otained hiistory, ordering medications,tests, procedures, referring, communicating with other health palliative care specialist, indepentently interpreting results, counseling the patient and care coordination
[2024-03-05] MEDS: PIPERACILLIN/TAZO 4.5 GM in Normal Saline 100 ML IVPB ×3 (11:00→23:01)
[2024-03-05] MEDS: dilTIAZem 25 MG/5 ML VIAL 20 MG IVP ×2 (12:05→14:09)
[2024-03-05] MEDS: REMDESIVIR 100 MG in Normal Saline 250 ML 250 MG IVPB (12:06)
[2024-03-05] MEDS: dilTIAZem 125 MG in Normal Saline 100 ML IV (13:42)
[2024-03-05] MEDS: VANCOMYCIN/WATER (PEG) 1 GM/200 ML BAG IV ×2 (13:45→23:42)
[2024-03-05] MEDS: Metoprolol 5 MG/5 ML VIAL 2.5 MG IVP (18:04)
[2024-03-05] MEDS: dilTIAZem 60 MG TAB 30 MG PO (20:05)
--- NOTE | 2024-03-05 20:15 | RT.EKG_ITS ---
APPROVED REPORT Exam: Resting ECG Reason for Exam: rhythm change Patient Location: I HR:84 bpm ECG Measurements Heart Rate 84 AXIS OK 158 P 55 QRSd 90 QRS 10 QT 352 T 72 QTc 417 Conclusion Sinus rhythm...normal P axis, V-rate 50- 99 Atrial premature complex...SV complex w/ short R-R interval Low voltage, precordial leads...precordial leads <1.0mV Abnormal R-wave progression, early transition...QRS area>0 in V2
[2024-03-05] MEDS: Insulin Glargine 300 UNITS/3 ML PEN 25 UNITS SC (20:29)
[2024-03-06] VITALS (27 sets, daily range): BP systolic 101–159; BP diastolic 58–105; PULSE 85–105; RESP 12–23; TEMP 36.5–37.5; O2SAT 92–97
[2024-03-06] MEDS: PIPERACILLIN/TAZO 4.5 GM in Normal Saline 100 ML IVPB ×3 (05:03→23:55)
[2024-03-06] MEDS: Normal Saline Flush 10 ML SYR IVP ×6 (05:41→23:59)
[2024-03-06 06:57] LABS: HCT 24.8 % (40.0-50.0); HGB 7.9 g/dL (13.5-17.5); MCH 30.7 pg (27.0-33.0); MCHC 31.9 % (32.0-36.0); MCV 97 fL (80-95); MPV 9.1 fL (8.0-11.0); Platelet Count 420 10^3/uL (130-400); RBC 2.57 10^6/uL (4.36-5.78); RDW 16.3 % (11.8-14.1); RDW-SD 58.1 fL; WBC 11.31 10^3/uL (4.4-10.8)
[2024-03-06 07:15] LABS: Anion Gap 11.5 mmol/L (3-11); BUN 25 mg/dL (7-18); CO2 24.5 mmol/L (21.0-32.0); Calcium 9.6 mg/dL (8.5-10.1); Chloride 113 mmol/L (98-107); Estimated GFR 83.01 (mL/min/1.73m2); Glucose 119 mg/dL (74-106); Sodium 149 mmol/L (136-145)
[2024-03-06 07:16] LABS: Potassium 2.9 mmol/L (3.5-5.1)
[2024-03-06 07:19] LABS: Magnesium 2.1 mg/dL (1.8-2.4); PHOSPHORUS < 2.0 mg/dL (2.6-4.7)
[2024-03-06 07:43] LABS: Absolute Lymphocyte Count 1.58 10^3/uL (1.2-3.4); Absolute Monocyte Count 0.57 10^3/uL (0.1-0.8); Absolute Neutrophil Count 8.93 10^3/uL (1.2-6.7); Atypical Lymphocytes % 1 %; Bands % 4 %
[2024-03-06 07:44] LABS: Anisocytosis 1+; Diff Comment Manual Differential; Metamyelocytes % 2; Poikilocytes 1+; Polychromasia Present
[2024-03-06] MEDS: POTASSIUM CHLORIDE 20 MEQ/100 ML BAG 50 MEQ IVINF ×2 (07:47→10:08)
[2024-03-06] MEDS: Ipratropium/Albuterol 4 GM 120 PUFF INH IH ×4 (08:45→20:32)
[2024-03-06] MEDS: Dexamethasone 10 MG/ML VIAL IVP (09:22)
[2024-03-06] MEDS: Pantoprazole 40 MG VIAL 80 MG IVP ×2 (09:23→21:10)
[2024-03-06] MEDS: dilTIAZem CD 120 MG CAPCR PO (10:08)
[2024-03-06] MEDS: DOXYCYCLINE 100 MG in Normal Saline 100 ML IVPB ×2 (10:09→22:39)
--- NOTE | 2024-03-06 10:10 | PGE_ITS ---
Date of Service Date of service: 03/06/24 Time of Service: 10:11 Assessment and Plan Assessment and plan (1) Atrial fibrillation with rapid ventricular response: Status: Acute Assessment and plan: New 03/04, likely related to prolonged pressors and sepsis. Blood pressure did not clearly drop with conversion to atrial fibrillation. No cardioversion indicated. Some changes on EKG, troponins negative. Nl TSH off pressors 03/05, poor response to amiodarone, so stopped. Tolerated diltiazem, converted with drip (did get just 2.5mg metoprolol). Will transitions to oral diltiazem CD. (2) Septic shock: Status: Acute Assessment and plan: Sepsis with hypotension despite adequate fluid rescuscutation, despite mulitple pressors norepinephrine started in ED. Did not do well well adding dobutamine 03/02, added vasopressin. Added epinephrine 03/03 for per Alicia recommendation, titrated off later in the day. Possible sources include bilateral pneumonia, COVID, UTI. I don't think genital pressure sore is source. Started on pip/tazo and vancomycin 03/02, changed PIP/tazo to cefepime 03/03, back to pip/tazo based on culture of urine Blood growing coag negative staph epi, likely contaminate, vanco stopped 03/06 Urine growing resistant klebsiela. Continue pip/tazo CRP, WBC, and ferritin all trended down. acidosis resolved 03/04 Fluid replete on POCUS 03/03, echocardiogram confirms normal LV and RV function, moderate . shock fully resolved. (3) COVID-19: Status: Acute Assessment and plan: Given not a clear serious bacterial infection with nl lactate and procalcitonin but profound hypoxia Dr. Vargas thought COVID-19 infection playing significant role and remdesivir started 03/03 AM. Cannot take po baricitinib, tocilizumab not available. Steroid changed from hydrocortisone to dexamethasone per Alicia, continue. Finish remdesivir through 03/07. It would be nice to get off precautions to better mobilize with PT. need to document initial positive (13 days ago), check with infection prevention. (4) Pneumonia: Status: Acute Assessment and plan: Possible infectious source, treating as above (5) Hypoxic respiratory failure: Status: Acute Assessment and plan: now down to 1 liter NC at night. Likely KRANTHI. Off oxygen during day. (6) Acute hyperkalemia: Status: Acute Assessment and plan: Treated with insulin, glucose, calcium gluconate. Now hypokalemic. On amiloride and DAREK inh as outpatient, restart these step-romero, given KCL iv and attempt oral liquid as well. (7) Acute hyponatremia: Status: Acute Assessment and plan: Given two boluses of 100ml 3% saline, was initially hypovolemic and given isotonic fluids as well. Now high, encourage/allow po fluids (8) Type 2 diabetes mellitus: Assessment and plan: insulin drip given acuity of illness, came off 03/03. Started glargine along with low dose sliding scale, continue. (9) Pressure ulcer: Status: Acute Assessment and plan: on penis from chronic hood, wound care also on bilateral buttocks, change positions in bed to offload, wound care. Rectal bag in place to keep these clean (10) Gastrointestinal hemorrhage with melena: Status: Acute Assessment and plan: heme+ black stools starting 03/03, though no severe bleeding. Given clot risk we did not stop enoxaparin initially, but stopped 03/05 after drop in hgb to 7.4, hgb improved 03/06. Continue high dose PPI. (11) Anemia: Status: Chronic Assessment and plan: acute on chronic, monitor daily, transfuse if <7% (12) UTI (urinary tract infection): Status: Acute Assessment and plan: Replaced ohod 03/03. Resent cultures, urine growing klebsiela, treatment as above. ESBL so will need to continue IV abx, plan 7 days. (13) DVT prophylaxis: Status: Acute Assessment and plan: to TEDs/SCDs given hgb dropped with melena 03/05 (14) Goals of care, counseling/discussion: Status: Acute Assessment and plan: Mr. Dixon confirmed DNR/DNI. He does look like he has made it through this episode. I met with patient and sisters this 03/05, they want him to work hard to mobilize at rehab. LEXX was a setback, stopped doing PT. He wants to get home even if he needs wheelchair, wants to be able to transfer, toilet, etc on his own. He has a lift chair they purchased now at rehab. Subjective Subjective Patient reports: denies nausea, vomiting, shortness of breath or fever Interval history since last seen: 24hr: Off all pressors, off amiodarone Converted back to NSR around 2200, diltiazem drip stopped 0. Feeling better. Not coughing. No chest pain. Ate some, not very hungry, but thirsty. Exam Narrative Exam Narrative: GEN: Alert. He is able to understand and respond to direct questions. On nasal cannula. Cooperative, voice now clear but in short sentence fragments, speech stilted (baseline dysphasia) LUNGS: No wheeze or rales, moving more air bilaterally but diffusely somewhat deminished. CV: RRR, with no murmurs, gallops, or rubs, though limited by habitus ABD: soft, non-distended, not tender EXT: no cyanosis, clubbing. Legs with 1+ heidi edema, hyperpigmented shins. could not examine wounds on buttocks Objective Last Vital Signs Temp 37.3 C 03/06/24 04:15 Pulse 88 03/06/24 05:02 Resp 15 03/06/24 05:02 BP 133/74 03/06/24 05:02 Pulse Ox 95 03/06/24 08:45 Laboratory Results - last 24 hr 03/06/24 05:40 WBC 11.31 H RBC 2.57 L Hgb 7.9 L Hct 24.8 L MCV 97 H MCH 30.7 MCHC 31.9 L RDW 16.3 H Plt Count 420 H MPV 9.1 Immature Gran % See Differential Neutrophils % 75.0 Band Neutrophils % 4 Lymphocytes % 13.0 Atypical Lymphs % 1 Monocytes % 5.0 Eosinophils % 0.0 Basophils % 0.0 Metamyelocytes % 2 Nucleated RBC % 2.0 H Absolute Neutrophils 8.93 H Absolute Lymphocytes 1.58 Absolute Monocytes 0.57 Absolute Eosinophils 0.00 Absolute Basophils 0.00 RBC Morphology See Below Polychromasia Present Poikilocytosis 1+ Anisocytosis 1+ Sodium 149 H Potassium 2.9 L* Chloride 113 H Carbon Dioxide 24.5 Anion Gap 11.5 H BUN 25 H Creatinine 1.0 Est GFR (CKD-EPI 2020) 83.01 Glucose 119 H Calcium 9.6 Phosphorus < 2.0 L Magnesium 2.1 Time Spent with Patient Time Spent with Patient: >50 minutes Time was spent: preparing to see the patient(eg.review tests), obtaining and/or reviewing separately otained hiistory, ordering medications,tests, procedures, referring, communicating with other health medicare sales representative, indepentently interpreting results, counseling the patient and care coordination
[2024-03-06] MEDS: REMDESIVIR 100 MG in Normal Saline 250 ML 250 MG IVPB (11:47)
[2024-03-06] MEDS: aMILoride HCL 5 MG TAB PO (11:47)
[2024-03-06] MEDS: Potassium Chloride Liquid 20 MEQ PKT 40 MEQ PO (11:48)
[2024-03-06 16:24] LABS: BUN 22 mg/dL (7-18); CREATININE 0.9 mg/dL (0.70-1.30); Calcium 9.3 mg/dL (8.5-10.1); Chloride 111 mmol/L (98-107); Estimated GFR 94.19 (mL/min/1.73m2); Glucose 160 mg/dL (74-106); Potassium 4.4 mmol/L (3.5-5.1); Sodium 145 mmol/L (136-145)
[2024-03-06] MEDS: Insulin Aspart 300 UNITS/3 ML PEN SC (18:55)
[2024-03-06] MEDS: Insulin Glargine 300 UNITS/3 ML PEN 25 UNITS SC (21:06)
[2024-03-07 03:10] VITALS: BP 149/69; PULSE 94; RESP 18; TEMP 37.4; O2SAT 93
[2024-03-07] MEDS: Normal Saline Flush 10 ML SYR IVP ×4 (06:27→21:39)
[2024-03-07] MEDS: PIPERACILLIN/TAZO 4.5 GM in Normal Saline 100 ML IVPB ×3 (06:27→23:18)
[2024-03-07 07:26] LABS: HCT 25.1 % (40.0-50.0); HGB 7.8 g/dL (13.5-17.5)
[2024-03-07 07:47] LABS: Anion Gap 10.3 mmol/L (3-11); BUN 22 mg/dL (7-18); CO2 23.7 mmol/L (21.0-32.0); CREATININE 0.8 mg/dL (0.70-1.30); Calcium 9.2 mg/dL (8.5-10.1); Chloride 109 mmol/L (98-107); Estimated GFR 97.61 (mL/min/1.73m2); Glucose 123 mg/dL (74-106); Potassium 3.5 mmol/L (3.5-5.1); Sodium 143 mmol/L (136-145)
[2024-03-07] MEDS: Ipratropium/Albuterol 4 GM 120 PUFF INH IH ×3 (08:04→21:04)
[2024-03-07] MEDS: Potassium Chloride Liquid 20 MEQ PKT PO (08:21)
[2024-03-07] MEDS: dilTIAZem CD 120 MG CAPCR PO (08:21)
[2024-03-07] MEDS: aMILoride HCL 5 MG TAB PO (08:21)
[2024-03-07 08:30] VITALS: BP 161/78; PULSE 92; RESP 18; TEMP 37; O2SAT 94
[2024-03-07] MEDS: Dexamethasone 10 MG/ML VIAL IVP (10:00)
[2024-03-07] MEDS: Pantoprazole 40 MG VIAL 80 MG IVP ×2 (10:02→19:37)
--- NOTE | 2024-03-07 10:19 | CMPROGNOTE_ITS ---
Date of service: 03/07/24 Time of Service: 10:19 Care Management Progress Note Progress Note Text Progress Note Text: S/O: CM was unable to meet with Luann in person today, and he does not have a phone in his room, per RN. Per RN, he is doing ok today, although he has expressed some frustration that his sister did not visit, as she had told him that she would. Per report, he transferred from [facility], and his plan will be to return once he is medically cleared. CM will continue to follow. A: Luann is a 64 year old male admitted to [facility] on 03/02/24 with septic shock, hyponatremia, hyperkalemia. Discharge Potential Discharge Needs: PT Evaluation and Other (Wound Consult) Anticipated Barriers to Discharge: Medical Status Patient/Family Education Needs: Review discharge instructions, discuss Ask Me Three Transportation: Facility Transport Plan: Luann will return to [facility] when medically ready. Transport dependent on mobility. CM following. SDOH(Care Management) Screening Will the Patient Participate in the Screening?: Unable to obtain
--- NOTE | 2024-03-07 10:20 | IN_ITS ---
PT Notes Visit Reasons: Sepstic shock, hyponatremia, hyperkalemia Physical Therapy Inpatient Initial Evaluation Date: 03/07/2024 Referring Doctor: Braden Weaver MD PT Orders: PT CONSULT: Eval for Assistive Device. Fall safety assessment. Precautions: Fall. Standard. R-sided hemiplegia from previosu CVA. Patient Profile/Admitting Diagnosis: Luann is a 64-year-old male with past medical history significant for previous CVA, cellulitis, and COVID 19 infection who presented to the ED on 03/02/2024 due to worsening shortness of breath. Patient is admitted to acute level of care for management of atrial fibrillation with RVR, septic shock, COVID-19 infection, PNA, hypoxic respiratory failure, acute hyponatremia, type 2 diabetes mellitus pressure ulcer of buttocks, GI hemorrhage with melena, and urinary tract infection. PMHX: All Active Problems (Updated 03/02/24 @ 18:55 by Braden Weaver) COVID-19 (Acute) DVT prophylaxis (Acute) Acute hyperkalemia (Acute) Acute hyponatremia (Acute) Pneumonia (Acute) Septic shock (Acute) Medical History Venous stasis dermatitis of both lower extremities Benign prostatic hyperplasia Hypertension Hemiparesis affecting right side as late effect of stroke Type 2 diabetes mellitus Social History/Home Situation: SNF resident Equipment Owned/DME: Bedside recliner Subjective: Gets mildly frustrated being unable to express self the way he would want to. Objective: General Observation: Resting in bed. Very high BMI. R-sided weakness noted. Hemosiderring staining in B legs from CVI. Mental Status: Alert and oriented as to person, place, time, and purpose. Able to pay attention, focus, and respond appropriately. Pain: None reported Vital Signs: closely monitored by nursing staff ROM: Right Upper Extremity: Hemiplegia, minimal ability to shrug shoulder Left Upper Extremity: Shoulder Flexion WFL. Shoulder abduction WFL. Elbow flexion WFL. Wrist flexion WFL. Functional opening and closing of hand WFL. Right Lower Extremity: Hip flexion only allows about 10 degrees but unable to sustain due to weakness . Hip abduction allows up to about 10 degrees. Knee flexion allows about 10 degrees but unable to sustain. Ankle dorsiflexion -20 degrees. Ankle plantarflexion WFL. Left Lower Extremity: Only able to bend at knee about 5 degrees but unable to sustain. Ankle DF -30 degrees. Strength: Right Upper Extremity: Shoulder flexors 1/5. Shoulder abductors 1/5. Elbow flexors 0/5. Elbow extensors 0/5. Mold Forms Builder absent. Left Upper Extremity: Shoulder flexors 3/5. Shoulder abductors 3/5. Elbow flexors 3/5. Elbow extensors 3/5. Mold Forms Builder strong. Right Lower Extremity: Hip flexors 2-/5. Hip abductors 2-/5. Knee flexors 2-/5. Knee extensors 2-/5. Ankle dorsiflexors 2-/5. Ankle plantarflexors 3-/5. Left Lower Extremity: Hip flexors 1/5. Hip abductors 1/5. Knee flexors 2-/5. Knee extensors 2-/5. Ankle dorsiflexors 2-/5. Ankle plantarflexors 3-/5. Bed Mobility/Transfers: Moderate cueing provided for use of B hands as needed for support, movement sequence, AD management, and posture to reduce fall risk and minimize pain report Rolling moderate assist of 2 to the R Supine to sit maximal assist Sit to supine maximal assist Sit to stand deferred, patient not safe for this activity at this time Stand to sit deferred, patient not safe for this activity at this time Bed to reclining chair deferred, patient not safe for this activity at this time Reclining chair to bed deferred, patient not safe for this activity at this time Gait: Unable to test Balance: Static Sitting: Unable Dynamic Sitting: Unable Static Standing: unable Dynamic Standing: Unable Special Tests: Mobility Limitations Standardized Measure [facility] Basic Mobility Inpatient Short Form: Raw Score: 6 CMS Score: 100% deficit THERA EX: PNF pattern to R UE and LE passively done by PT. AAROM to L UE/LE x 5 to increase major muscle group strength. Informed Consent/Education: Patient was instructed in purpose of PT consult and plan of care. Agreeable to proceed with established PT POC to achieve personal goals. ASSESSMENT:: [place] PRECAUTIONS FOR COVID-[address] Patient has been wheelchair- bound/bed bound since arrival to [facility]. Currently requires total dependence and use of mechanical lift for all transfers. Has delayed his standing trials until his newly bought bedside recliner arrived at the SNF. Unable to perform independent pressure relief to B buttocks. Expressive aphasia limiting ability to communicate. can follow instrcutions. Patient presents with clinical signs and symptoms consistent with current/admitting diagnoses that have resulted to mobility limitations, gait instability, generalized weakness, and overall ADL decline as demonstrated by the following impairment level findings: 1. Decreased strength to B UE/LE major muscle groups with R UE/LE hemiparetic 2. Impaired sitting/standing balance 3. Impaired activity tolerance 4. Limitation of joint range of motion in R UE/LE 5. Shortness of breath 6. Skin breakdown in buttocks Impairments are contributing to the following functional limitations: 1. Decline in bed mobility skills 2. Decline in transfer skills 3. Unable to ambulate 4. Increased completion time for mobility ADL performance 5. Increased risk for falls 6. Difficulty with managing steps alone safely 7. Increased risk for skin breakdown Patient is assessed as a 39937 high complexity based on the following: History: 64-year-old male with past medical history as indicated above Examination: Demonstrable impairment in strength, balance, and mobility level with underlying impairments and functional limitations as exhibited above as well as deficit score of 100% utilizing the [facility] Mobility Inpatient Short Form Presentation: Evolving Decision Makin high complexity Goals: Goals X1 week 1. Supine-Sit moderate assist while using bed rail 2. Sit-Supine moderate assist while using bed rail 3. Sit-Stand moderate assist while using bed rail 4. Stand-Sit moderate assist of 2 with use of STEDY lift 5. Bed-Chair imoderate assist of 2 with use of STEDY lift 6. Chair-Bed independent moderate assist of 2 with use of STEDY lift Plan of Care/Treatment Plan: 1-2x/day, 7 days/week x 1 week. Plan of care has been reviewed with the ELECTRICAL MECHANICAL TECHNICIAN providing the service under Physical Therapy direction. Initiate Physical Therapy intervention for pain management as needed, strengthening, bed mobility, transfers, gait, stairs, balance training, and use of assistive device. DISCHARGE RECOMMENDATIONS: Home with no services [] [] Home with services [specify] [] Home with outpatient PT [] [] SNF for continued rehabilitation [] [] Longterm Care [] [] SNF versus LTC based on ability to participate and progress [] [X] Return to SNF when medically cleared, resume PT as appropriate TREATMENT CODE/TIME: 9716 2 x 20 minutes for 1 unit, 9711 0 x 916 minutes for 1 unit (10:20-10:56). Thank you for the opportunity to participate in the care of this patient. Kacey Montgomery PT, DPT, CLT [facility] [place], [place]
[2024-03-07] MEDS: DOXYCYCLINE 100 MG in Normal Saline 100 ML IVPB ×2 (10:45→21:39)
[2024-03-07] MEDS: REMDESIVIR 100 MG in Normal Saline 250 ML 250 MG IVPB (12:32)
[2024-03-07] MEDS: Insulin Aspart 300 UNITS/3 ML PEN SC ×2 (12:35→17:11)
[2024-03-07 13:22] LABS: Streptococcus Pneumoniae Ag, U Negative (Negative)
[2024-03-07 16:02] VITALS: BP 152/72; PULSE 83; RESP 15; TEMP 36.2; O2SAT 96
--- NOTE | 2024-03-07 18:12 | PGE_ITS ---
Date of Service Date of service: 03/07/24 Time of Service: 18:12 Assessment and Plan Assessment and plan (1) Atrial fibrillation with rapid ventricular response: Start date: 03/04/24 Status: Acute Assessment and plan: new onset likely d/t high dose vasopressors treated in the ICU for septic shock; s/p conversion on iv diltiazem, now on long acting oral diltiazem 120 mg daily; not candidate for anticoagulation d/t GI bleeding (multiple heme positive stools and continued black stools); rate and rhythm now controlled. (2) Septic shock: Start date: 03/02/24 Status: Resolved Assessment and plan: presented in septic shock and required multiple vasopressors (vasopressin, epinephrine (after failing epinephrine) and dobutamine. likely source is urosepsis (resistant Klebsiella pneumonia UTI), also pneumonia was a consideration as well and he was treated w/ Zosyn and Vancomycin on 03/02, Zosyn changed to cefepime on 03/03 but back to Zosyn when urine culture found to be resistant to cephalosporins, Blood culture grew CN Staph 1 of 2 cultures from 03/02, Vancomycin dc on 03/06. Shock resolved by 03/04 (vasopressin dc 03/06 however epinephrine and dobutamine dc 03/04). SALINAS w/ creatinine 2.2 peak on 03/02 has since recovered to 1.0. LFT never were monitored. (3) COVID-19: Status: Acute Assessment and plan: patient with positive SARS COV-2 PCR on admission 03/02 but reportedly developed this 9 days prior to his admission on 03/02. Patient was treated w/ Remdesivir from 03/03 through today 03/07 (last day of 5 day course). Patient did have acute hypoxic respiratory failue and was requiring use of NIPPV w/ BIPAP and HFNC early in his course (03/02 - 03/05 but has been on room air since yesterday). (4) Pneumonia: Status: Acute Assessment and plan: never did recover any organism on sputum and urine legionella and strep antigens were negative. CXR did show bilateral lower lobe infiltrates. He was treated as noted above w/ Zosyn, cefepime and vancomcyin; remains on Zosyn 3 continuous days (03/05-03/07) but also treated 03/02-03/03 and was on cefepime for a day on 03/03-03/04 and remains on doxycycline since 03/03 (now day #5). will treate for total 7 days Qualifiers: Pneumonia type: due to unspecified organism Laterality: bilateral Lung location: lower lobe of lung Qualified Code(s): J18.9 - Pneumonia, unspecified organism (5) Hypoxic respiratory failure: Status: Acute Assessment and plan: now on room air during the day. will apply oxygen at night empirically for KRANTHI Qualifiers: Chronicity: acute on chronic Qualified Code(s): J96.21 - Acute and chronic respiratory failure with hypoxia (6) Acute hyperkalemia: Status: Resolved Assessment and plan: Treated with insulin, glucose, calcium gluconate. Now hypokalemic. On amiloride and DAREK inh as outpatient, restart these step-romero, given KCL iv and attempt oral liquid as well. K now up to 3.5, continue to monitor daily (7) Acute hyponatremia: Status: Resolved Assessment and plan: Na now 143, monitor (8) Type 2 diabetes mellitus: Assessment and plan: continue basal/bolus insulin (9) Pressure ulcer: Status: Acute Assessment and plan: on penis from chronic hood, wound care also on bilateral buttocks, change positions in bed to offload, wound care. Rectal bag in place to keep these clean (10) Gastrointestinal hemorrhage with melena: Status: Acute Assessment and plan: heme+ black stools starting 03/03, though no severe bleeding. Given clot risk we did not stop enoxaparin initially, but stopped 03/05 after drop in hgb to 7.4, hgb improved 03/06. Continue high dose PPI. avoid enoxaparin or heparin given GI bleeding; not a good candidate for endoscopy given recent septic shock, respiratory failure and morbid obesity. carafate added to protonix (11) Anemia: Status: Chronic Assessment and plan: acute on chronic, monitor daily, transfuse if <7%, check iron studies and B12 and folate levels (12) UTI (urinary tract infection): Status: Acute Assessment and plan: Replaced hood 03/03. Resent cultures, urine growing klebsiela, treatment as above. ESBL so will need to continue IV abx, plan 7 days. (13) DVT prophylaxis: Status: Acute Assessment and plan: to TEDs/SCDs given hgb dropped with melena 03/05 (14) Goals of care, counseling/discussion: Status: Acute Assessment and plan: Per Dr. Weaver: Mr. Dixon confirmed DNR/DNI. He does look like he has made it through this episode. Dr. Weaver met with patient and sisters this 03/05, they want him to work hard to mobilize at rehab. LEXX was a setback, stopped doing PT. He wants to get home even if he needs wheelchair, wants to be able to transfer, toilet, etc on his own. He has a lift chair they purchased now at rehab. Subjective Subjective Interval history since last seen: Patient has moist cough, nonproductive but does not feel dyspnea. SPO2 96% on room air. He denies any pain. Exam Narrative Exam Narrative: Morbidly obese male who has expressive aphasia and has problems finding the right words to express himself but given enough time he is able to make out what he wants to convery HEENT: remarkable for dysmetria of his eyes (left eye looks up and away (laterally) when his right eye focuses at the observer, speech is clear but some of his word order and syntax does not go well Lungs: clear anteriorly, some basilar rales posteriorly Heart: regular w/ soft systolic murmur over apex, no thrill or gallops Abdomen: obese, soft, nontender Neuro: dense right hemiparesis, not able to lift right arm or hand or right leg or foot off bed, no hand grasps and no pedal dorsiflexion; left side is normal strength Hood draining clear yellow urine Rectal tube w/ dark black liquid stool in the rectal tube (stool has been heme positive on multiple occasions Objective Last Vital Signs Temp 36.2 C L 03/07/24 16:02 Pulse 83 03/07/24 16:02 Resp 15 03/07/24 16:02 BP 152/72 H 03/07/24 16:02 Pulse Ox 96 03/07/24 16:02 Laboratory Results - last 24 hr 03/03/24 03/07/24 19:30 05:30 Hgb 7.8 L Hct 25.1 L Sodium 143 Potassium 3.5 Chloride 109 H Carbon Dioxide 23.7 Anion Gap 10.3 BUN 22 H Creatinine 0.8 Est GFR (CKD-EPI 2020) 97.61 Glucose 123 H Calcium 9.2 Ur Strep pneumoniae Ag Negative Time Spent with Patient Time Spent with Patient: 35-49 minutes Time was spent: preparing to see the patient(eg.review tests), ordering medications,tests, procedures, referring, communicating with other health director of healthcare systems, indepentently interpreting results, counseling the patient and care coordination
[2024-03-07 19:35] VITALS: BP 140/71; PULSE 80; RESP 20; TEMP 36.4; O2SAT 95
[2024-03-07] MEDS: Insulin Glargine 300 UNITS/3 ML PEN 25 UNITS SC (19:36)
[2024-03-07 23:15] VITALS: BP 147/71; PULSE 84; RESP 18; TEMP 36; O2SAT 95
[2024-03-07] MEDS: Sucralfate 1 GM TAB PO (23:18)
[2024-03-08] MEDS: Normal Saline Flush 10 ML SYR IVP ×4 (03:45→09:59)
[2024-03-08] MEDS: PIPERACILLIN/TAZO 4.5 GM in Normal Saline 100 ML IVPB ×3 (06:02→22:21)
[2024-03-08 06:37] LABS: HCT 25.3 % (40.0-50.0); HGB 8.1 g/dL (13.5-17.5); MCH 30.5 pg (27.0-33.0); MCV 95 fL (80-95); MPV 9.3 fL (8.0-11.0); Platelet Count 355 10^3/uL (130-400); RBC 2.66 10^6/uL (4.36-5.78); RDW 16.4 % (11.8-14.1); RDW-SD 55.8 fL; Reticulocyte 2.9 % (0.5-2.4); WBC 11.96 10^3/uL (4.4-10.8)
[2024-03-08 06:53] LABS: Iron 93 ug/dL (65-175); Total Iron Binding Capacity 164 ug/dL (250-450); Transferrin Sat 57 % (20-55)
[2024-03-08 07:04] LABS: Absolute Lymphocyte Count 2.99 10^3/uL (1.2-3.4); Absolute Monocyte Count 0.48 10^3/uL (0.1-0.8); Absolute Neutrophil Count 7.89 10^3/uL (1.2-6.7); Bands % 2 %; Metamyelocytes % 2; Myelocytes % 3
[2024-03-08 07:05] LABS: Diff Comment Manual Differential; RBC Morphology Normal
[2024-03-08 07:14] LABS: Procalcitonin 0.3 ng/mL
[2024-03-08 07:19] LABS: ALT 30 U/L (16-63); AST 39 U/L (15-37); Albumin 2.2 g/dL (3.4-5.0); Alkaline Phosphatase 55 U/L (46-116); Anion Gap 10.6 mmol/L (3-11); BUN 23 mg/dL (7-18); Bilirubin, Total 0.5 mg/dL (0.2-1.0); CO2 24.4 mmol/L (21.0-32.0); CREATININE 0.9 mg/dL (0.70-1.30); Calcium 8.9 mg/dL (8.5-10.1); Chloride 105 mmol/L (98-107); Estimated GFR 94.19 (mL/min/1.73m2); Ferritin 557 ng/mL (26-388); Folate 4.2 ng/mL (8.6-20.0); Glucose 114 mg/dL (74-106); Potassium 3.6 mmol/L (3.5-5.1); Sodium 140 mmol/L (136-145); Total Protein 6.4 g/dL (6.4-8.2); Vitamin B12 481 pg/mL (193-986)
[2024-03-08] MEDS: Ipratropium/Albuterol 4 GM 120 PUFF INH IH ×4 (08:22→19:42)
[2024-03-08 08:45] VITALS: BP 141/70; PULSE 75; RESP 18; TEMP 36.2; O2SAT 97
[2024-03-08] MEDS: aMILoride HCL 5 MG TAB PO (08:59)
[2024-03-08] MEDS: dilTIAZem CD 120 MG CAPCR PO (09:00)
[2024-03-08] MEDS: Dexamethasone 10 MG/ML VIAL IVP (09:00)
[2024-03-08] MEDS: Sucralfate 1 GM TAB PO ×4 (09:02→21:41)
[2024-03-08] MEDS: Pantoprazole 40 MG VIAL 80 MG IVP ×2 (09:02→21:40)
[2024-03-08] MEDS: Potassium Chloride Liquid 20 MEQ PKT PO (09:02)
[2024-03-08] MEDS: Folic Acid 1 MG TAB 5 MG PO (09:23)
[2024-03-08] MEDS: DOXYCYCLINE 100 MG in Normal Saline 100 ML IVPB ×2 (09:59→23:47)
--- NOTE | 2024-03-08 13:55 | PT.INTREAT ---
PT Notes Visit Reasons: Sepstic shock, hyponatremia, hyperkalemia Inpatient Physical Therapy Treatment Note [facility] Date: 03/08/24 SUBJECTIVE: Luann states that he is willing to give PT a try. States that he occasionally gets pain in right LE. OBJECTIVE: []? VITALS: ?monitored by nsg ? Therapeutic Exercises ([id number]): Direct one-on-one instruction in therapeutic exercises to develop strength, endurance, range of motion and flexibility. ? Exercises: performed bed level ex for LE including: APs x12 on R and 20x left. SAQ, SLR, heel slides and Glute squeeze x10 each required assistance with RLE. ? Provided skilled manual cues to facilitate proper muscle recruitment and/or form: ASSESSMENT:? tolerated session well. No c/o pain during todays session. No coughing or SOB. Continues to require assistance with RLE. PLAN: will continue to progress strengthening and functional mobility as per PT POC. TREATMENT CODE/TIME: 20 min. [id number]
--- NOTE | 2024-03-08 14:22 | PHA.REVIEW2 ---
Pharmacy Admission Review Admission Clinical Review Admission Pharmacy Review: (Updated 03/07/24 @ 19:02 by Aneudy Gill MD) Atrial fibrillation with rapid ventricular response (Acute) Goals of care, counseling/discussion (Acute) Gastrointestinal hemorrhage with melena (Acute) Hypoxic respiratory failure (Acute) UTI (urinary tract infection) (Acute) Uremia (Acute) Hyperglycemia (Acute) SALINAS (acute kidney injury) (Acute) Upper GI bleeding (Acute) Leukocytosis (Acute) Pressure ulcer (Acute) COVID-19 (Acute) DVT prophylaxis (Acute) Pneumonia (Acute) aspirin Allergy (Mild, Verified 03/02/24 13:43) Other (See Comment) metformin Allergy (Unknown, Verified 03/02/24 13:43) Unknown sulfamethoxazole [From Bactrim] Allergy (Unknown, Verified 03/02/24 13:43) Unknown trimethoprim [From Bactrim] Allergy (Unknown, Verified 03/02/24 13:43) Unknown Resuscitation Status DNR/DNI Height 5 ft 6 in Weight 141.9 kg Pharmacy Admission Review Renal Dosing Renal Dosing: BUN 23 mg/dL (7-18) H 03/08/24 06:10 Creatinine 0.9 mg/dL (0.70-1.30) 03/08/24 06:10 Medications needing adjustments: Reviewed (CrCl 97.68 mL/min) List of meds needing interventions: Current medications are okay Anticoagulation Anticoagulation: Hgb 8.1 g/dL (13.5-17.5) L 03/08/24 06:10 Hct 25.3 % (40.0-50.0) L 03/08/24 06:10 Plt Count 355 10^3/uL (130-400) 03/08/24 06:10 INR 1.1 (0.9-1.1) 03/03/24 15:00 Creatinine 0.9 mg/dL (0.70-1.30) 03/08/24 06:10 DVT Prophylaxis: Reviewed (SCDs/TEDs - heme positive stools) Opiate Usage Evaluate Pain Scale/Pains Meds: Reviewed (PRN morphine) Scheduled Bowel Reg ordered if on Opiates?: No Relevant Labs Relevant Labs: ESR 64 mm/hr (0-20) H 03/05/24 05:40 Sodium 140 mmol/L (136-145) 03/08/24 06:10 Potassium 3.6 mmol/L (3.5-5.1) 03/08/24 06:10 Chloride 105 mmol/L (98-107) 03/08/24 06:10 Phosphorus < 2.0 mg/dL (2.6-4.7) L 03/06/24 05:40 Magnesium 2.1 mg/dL (1.8-2.4) 03/06/24 05:40 C-Reactive Protein 4.15 mg/dL (<or=0.5) H 03/05/24 05:40 Electrolytes, C-Reactive P, ESR: Reviewed (Hgb slightly increased from 7.8 to 8.1) DM Control DM Control: Glucose 114 mg/dL (74-106) H 03/08/24 06:10 Finger Stick Blood Glucose 110 1140 Finger Stick Blood Glucose 110 1139 Finger Stick Blood Glucose 110 1139 Finger Stick Blood Glucose 101 0901 Finger Stick Blood Glucose 101 0841 Finger Stick Blood Glucose 101 0841 DM Control: Reviewed Insulin Dosing, Diabetic Medication: Patient has order for SS insulin and bedtime glargine Cardiac Review Cardiac Review: Troponin I < 50 ng/L (< or =60) 03/04/24 13:10 NT-Pro-B Natriuret Pep 85 pg/mL (<300) 03/02/24 14:20 BP, HR, EF%: Reviewed (BP 141/70 and HR WNL) QTc Review QTc: Reviewed (417 from 03/05/24) IV to PO Switch IV Medications: Reviewed (dexamethasone, doxycycline, morphine, pantoprazole and Zosyn) Home Meds Home Med List reviewed: Intervened Relevent Home Meds Not ordered & why?: Acetaminophen, Invokana, enalapril, furosemide, gabapentin, nifedipine, pioglitazone, simvastatin, Tamsulosin and triamcinolone cream Reached out to provider to make sure they are aware. Waiting to hear back. Current Meds Current Medication Order Review: Intervened Comments: Added IV admission order set Pharmacy Antibiotic Review Relevant Labs: Relevant Labs 03/08/24 06:10 Procalcitonin 0.3 WBC 11.96 10^3/uL (4.4-10.8) H 03/08/24 06:10 Procalcitonin 0.3 ng/mL 03/08/24 06:10 Temperature 36.2 C Microbiology 03/05/24 07:44 Blood Culture - Final Blood K. pneumoniae Pharmacy Antibiotic Activity: C/S review and Reviewed, no change Comments: Patient is on doxycycline day 6/7 and Zosyn day 4/7. Blood culture showing a lot of resistance, but is sensitive to Zosyn. WBC slightly increased today. Sputum culture showing normal kolton. Plan is to keep patient here to complete 7 days of treatment with Zosyn.
[2024-03-08 14:41] VITALS: BP 157/69; PULSE 61; RESP 19; TEMP 36.9; O2SAT 97
[2024-03-08 15:15] LABS: C-Reactive Protein 0.54 mg/dL (<or=0.5)
[2024-03-08] MEDS: Insulin Aspart 300 UNITS/3 ML PEN SC (16:44)
--- NOTE | 2024-03-08 17:22 | W.PM.PROGNOT ---
Date of Service Date of service: 03/08/24 Time of Service: 17:22 Assessment and Plan Assessment and plan (1) Atrial fibrillation with rapid ventricular response: Start date: 03/04/24 Status: Acute Assessment and plan: new onset likely d/t high dose vasopressors treated in the ICU for septic shock; s/p conversion on iv diltiazem, now on long acting oral diltiazem 120 mg daily; not candidate for anticoagulation d/t GI bleeding (multiple heme positive stools and continued black stools); rate and rhythm now controlled. (2) Septic shock: Start date: 03/02/24 Status: Resolved Assessment and plan: presented in septic shock and required multiple vasopressors (vasopressin, epinephrine (after failing epinephrine) and dobutamine. likely source is urosepsis (resistant Klebsiella pneumonia UTI), also pneumonia was a consideration as well and he was treated w/ Zosyn and Vancomycin on 03/02, Zosyn changed to cefepime on 03/03 but back to Zosyn when urine culture found to be resistant to cephalosporins, Blood culture grew CN Staph 1 of 2 cultures from 03/02, Vancomycin dc on 03/06. Shock resolved by 03/04 (vasopressin dc 03/06 however epinephrine and dobutamine dc 03/04). SALINAS w/ creatinine 2.2 peak on 03/02 has since recovered to 1.0. LFT never were monitored. Will treat w/ Zosyn for minimum of 7 days. He had treatment from 03/02 to 03/03 w/ Zosyn but then interrupted but resumed Zosyn on 03/04 through present. Will continue for two more days but likely will return to . [facility] on Wednesday. (3) COVID-19: Status: Acute Assessment and plan: patient with positive SARS COV-2 PCR on admission 03/02 but reportedly developed this 9 days prior to his admission on 03/02. Patient was treated w/ Remdesivir from 03/03 through today 03/07 (last day of 5 day course). Patient did have acute hypoxic respiratory failue and was requiring use of NIPPV w/ BIPAP and HFNC early in his course (03/02 - 03/05 but has been on room air since yesterday). Per his sister he was first diagnosed w/ COVID on the Wednesday after Mother's Day (this would be have been 02/21 therefore he was diagnosed over two weeks ago. He can be taken out of acute isolation at this point. He completed 5 day course of Remdesivir (4) Pneumonia: Status: Acute Assessment and plan: never did recover any organism on sputum and urine legionella and strep antigens were negative. CXR did show bilateral lower lobe infiltrates. He was treated as noted above w/ Zosyn, cefepime and vancomcyin; remains on Zosyn 4 continuous days (03/05-03/08) but also treated 03/02-03/03 and was on cefepime for a day on 03/03-03/04 and remains on doxycycline since 03/03 (now day #5). will treate for total 7 days Qualifiers: Pneumonia type: due to unspecified organism Laterality: bilateral Lung location: lower lobe of lung Qualified Code(s): J18.9 - Pneumonia, unspecified organism (5) Hypoxic respiratory failure: Status: Acute Assessment and plan: now on room air during the day. will apply oxygen at night empirically for KRANTHI Qualifiers: Chronicity: acute on chronic Qualified Code(s): J96.21 - Acute and chronic respiratory failure with hypoxia (6) Acute hyperkalemia: Status: Resolved Assessment and plan: Treated with insulin, glucose, calcium gluconate. Now hypokalemic. On amiloride and DAREK inh as outpatient, restart these step-romero, given KCL iv and attempt oral liquid as well. K now up to 3.5, continue to monitor daily (7) Acute hyponatremia: Status: Resolved Assessment and plan: Na now 140, monitor (8) Type 2 diabetes mellitus: Assessment and plan: continue basal/bolus insulin (9) Pressure ulcer: Status: Acute Assessment and plan: on penis from chronic hood, wound care also on bilateral buttocks, change positions in bed to offload, wound care. Rectal bag in place to keep these clean (10) Gastrointestinal hemorrhage with melena: Status: Acute Assessment and plan: heme+ black stools starting 03/03, though no severe bleeding. Given clot risk we did not stop enoxaparin initially, but stopped 03/05 after drop in hgb to 7.4, hgb improved 03/06. Continue high dose PPI. avoid enoxaparin or heparin given GI bleeding; not a good candidate for endoscopy given recent septic shock, respiratory failure and morbid obesity. carafate added to protonix (11) Anemia: Status: Chronic Assessment and plan: acute on chronic, monitor daily, transfuse if <7%, check iron studies and B12 and folate levels iron studies consistent w/ anemia of chronic disease (normal serum iron, high ferritin, low TIBC; however has folate deficiency, will put on folate supplementation. (12) UTI (urinary tract infection): Status: Acute Assessment and plan: Replaced hood 03/03. Resent cultures, urine growing klebsiela, treatment as above. ESBL so will need to continue IV abx, plan 7 days. (13) DVT prophylaxis: Status: Acute Assessment and plan: to TEDs/SCDs given hgb dropped with melena 03/05 (14) Goals of care, counseling/discussion: Status: Acute Assessment and plan: Per Dr. Weaver: Mr. Dixon confirmed DNR/DNI. He does look like he has made it through this episode. Dr. Weaver met with patient and sisters this 03/05, they want him to work hard to mobilize at rehab. LEXX was a setback, stopped doing PT. He wants to get home even if he needs wheelchair, wants to be able to transfer, toilet, etc on his own. He has a lift chair they purchased now at rehab. Subjective Subjective Interval history since last seen: Luann is feeling markedly better. He was visiting w/ his sisterFlorence when I met with him. No dyspnea or fevers. Exam Narrative Exam Narrative: Obese, white male who is alert, oriented, coversing w/ his sister, he has some expressive aphasia but is able to make his wishes known Lungs: clear Heart: RRR, soft systolic mumur over apex grade 1/6 Abdomen: obese, soft, nontender Objective Last Vital Signs Temp 36.9 C 03/08/24 14:41 Pulse 61 03/08/24 14:41 Resp 19 03/08/24 14:41 BP 157/69 H 03/08/24 14:41 Pulse Ox 97 03/08/24 14:41 Laboratory Results - last 24 hr 03/08/24 06:10 WBC 11.96 H RBC 2.66 L Hgb 8.1 L Hct 25.3 L MCV 95 MCH 30.5 MCHC 32.0 RDW 16.4 H Plt Count 355 MPV 9.3 Reticulocyte % (Auto) 2.9 H Immature Gran % 0.0 Neutrophils % 64.0 Band Neutrophils % 2 Lymphocytes % 25.0 Monocytes % 4.0 Eosinophils % 0.0 Basophils % 0.0 Metamyelocytes % 2 Myelocytes % 3 Nucleated RBC % 1.0 H Absolute Neutrophils 7.89 H Absolute Lymphocytes 2.99 Absolute Monocytes 0.48 Absolute Eosinophils 0.00 Absolute Basophils 0.00 RBC Morphology Normal Sodium 140 Potassium 3.6 Chloride 105 Carbon Dioxide 24.4 Anion Gap 10.6 BUN 23 H Creatinine 0.9 Est GFR (CKD-EPI 2020) 94.19 Glucose 114 H Calcium 8.9 Iron 93 TIBC 164 L Transferrin % Sat 57 H Ferritin 557 H Total Bilirubin 0.5 AST 39 H ALT 30 Alkaline Phosphatase 55 C-Reactive Protein 0.54 H Total Protein 6.4 Albumin 2.2 L Vitamin B12 481 Folate 4.2 L Procalcitonin 0.3 Time Spent with Patient Time Spent with Patient: 25-34 minutes Time was spent: preparing to see the patient(eg.review tests), referring, communicating with other health long term acute care registered nurse, indepentently interpreting results, counseling the patient (and sister Florence) and care coordination
[2024-03-08 19:26] VITALS: BP 149/77; PULSE 60; RESP 18; TEMP 36.2; O2SAT 94
[2024-03-08] MEDS: Insulin Glargine 300 UNITS/3 ML PEN 25 UNITS SC (21:38)
[2024-03-08 22:49] LABS: Homocysteine 16.8 umol/L (5.0-13.9)
[2024-03-08 23:51] VITALS: BP 144/65; PULSE 70; RESP 16; TEMP 36.2; O2SAT 96
[2024-03-09] MEDS: Ipratropium/Albuterol 4 GM 120 PUFF INH IH ×3 (08:06→19:23)
[2024-03-09 08:33] VITALS: BP 129/67; PULSE 71; RESP 17; TEMP 36.5; O2SAT 98
[2024-03-09] MEDS: Normal Saline Flush 10 ML SYR IVP (08:50)
[2024-03-09] MEDS: Potassium Chloride Liquid 20 MEQ PKT PO (08:50)
[2024-03-09] MEDS: Pantoprazole 40 MG VIAL 80 MG IVP ×2 (08:51→21:32)
[2024-03-09] MEDS: Dexamethasone 10 MG/ML VIAL IVP (08:51)
[2024-03-09] MEDS: dilTIAZem CD 120 MG CAPCR PO (08:52)
[2024-03-09] MEDS: Sucralfate 1 GM TAB PO ×4 (08:52→21:32)
[2024-03-09] MEDS: Folic Acid 1 MG TAB 5 MG PO (08:53)
[2024-03-09] MEDS: Enalapril 5 MG TAB 10 MG PO (08:54)
[2024-03-09] MEDS: aMILoride HCL 5 MG TAB PO (08:54)
[2024-03-09] MEDS: PIPERACILLIN/TAZO 4.5 GM in Normal Saline 100 ML IVPB ×2 (09:09→16:44)
--- NOTE | 2024-03-09 13:23 | PGE_ITS ---
Date of Service Date of service: 03/09/24 Time of Service: Assessment and Plan Assessment and plan (1) Atrial fibrillation with rapid ventricular response: Start date: 03/04/24 Status: Acute Assessment and plan: new onset likely d/t high dose vasopressors treated in the ICU for septic shock; s/p conversion on iv diltiazem, now on long acting oral diltiazem 120 mg daily; not candidate for anticoagulation d/t GI bleeding (multiple heme positive stools and continued black stools); rate and rhythm now controlled. (2) Septic shock: Start date: 03/02/24 Status: Resolved Assessment and plan: presented in septic shock and required multiple vasopressors (vasopressin, epinephrine (after failing epinephrine) and dobutamine. likely source is urosepsis (resistant Klebsiella pneumonia UTI), also pneumonia was a consideration as well and he was treated w/ Zosyn and Vancomycin on 03/02, Zosyn changed to cefepime on 03/03 but back to Zosyn when urine culture found to be resistant to cephalosporins, Blood culture grew CN Staph 1 of 2 cultures from 03/02, Vancomycin dc on 03/06. Shock resolved by 03/04 (vasopressin dc 03/06 however epinephrine and dobutamine dc 03/04). SALINAS w/ creatinine 2.2 peak on 03/02 has since recovered to 1.0. LFT never were monitored. Will treat w/ Zosyn for minimum of 7 days. He had treatment from 03/02 to 03/03 w/ Zosyn but then interrupted but resumed Zosyn on 03/04 through present. Will continue until discharge, anticipate discharge tomorrow (3) COVID-19: Status: Acute Assessment and plan: patient with positive SARS COV-2 PCR on admission 03/02 but reportedly developed this 9 days prior to his admission on 03/02. Patient was treated w/ Remdesivir from 03/03 through today 03/07 (last day of 5 day course). Patient did have acute hypoxic respiratory failue and was requiring use of NIPPV w/ BIPAP and HFNC early in his course (03/02 - 03/05 but has been on room air since yesterday). Per his sister he was first diagnosed w/ COVID on the Wednesday after Mother's Day (this would be have been 02/21 therefore he was diagnosed over two weeks ago. He can be taken out of acute isolation at this point. He completed 5 day course of Remdesivir I have discontinued his respiratory isolation today (4) Pneumonia: Status: Acute Assessment and plan: never did recover any organism on sputum and urine legionella and strep antigens were negative. CXR did show bilateral lower lobe infiltrates. He was treated as noted above w/ Zosyn, cefepime and vancomcyin; remains on Zosyn 4 continuous days (03/05-03/08) but also treated 03/02-03/03 and was on cefepime for a day on 03/03-03/04. doxycycline discontinued after last dose last night. Will keep on Zosyn until discharge. Qualifiers: Laterality: bilateral Lung location: lower lobe of lung Pneumonia type: due to unspecified organism Qualified Code(s): J18.9 - Pneumonia, unspecified organism (5) Hypoxic respiratory failure: Status: Acute Assessment and plan: now on room air during the day. will apply oxygen at night empirically for KRANTHI Qualifiers: Chronicity: acute on chronic Qualified Code(s): J96.21 - Acute and chronic respiratory failure with hypoxia (6) Acute hyperkalemia: Status: Resolved Assessment and plan: Treated with insulin, glucose, calcium gluconate. Now hypokalemic. On amilori de and DAREK inh as outpatient, restart these step-romero, given KCL iv and attempt oral liquid as well. K now up to 3.6 (7) Acute hyponatremia: Status: Resolved Assessment and plan: Na now 140, monitor (8) Type 2 diabetes mellitus: Assessment and plan: continue basal/bolus insulin (9) Pressure ulcer: Status: Acute Assessment and plan: on penis from chronic hood, wound care also on bilateral buttocks, change positions in bed to offload, wound care. Rectal bag in place to keep these clean (10) Gastrointestinal hemorrhage with melena: Status: Acute Assessment and plan: heme+ black stools starting 03/03, though no severe bleeding. Given clot risk we did not stop enoxaparin initially, but stopped 03/05 after drop in hgb to 7.4, hgb improved 03/06. Continue high dose PPI. avoid enoxaparin or heparin given GI bleeding; not a good candidate for endoscopy given recent septic shock, respiratory failure and morbid obesity. carafate added to protonix (11) Anemia: Status: Chronic Assessment and plan: acute on chronic, monitor daily, transfuse if <7%, check iron studies and B12 and folate levels iron studies consistent w/ anemia of chronic disease (normal serum iron, high ferritin, low TIBC; however has folate deficiency, will put on folate supplementation. (12) UTI (urinary tract infection): Status: Acute Assessment and plan: Replaced hood 03/03. Resent cultures, urine growing klebsiela, treatment as above. ESBL so will need to continue IV abx, plan 7 days. (13) DVT prophylaxis: Status: Acute Assessment and plan: to TEDs/SCDs given hgb dropped with melena 03/05 (14) Goals of care, counseling/discussion: Status: Acute Assessment and plan: Per Dr. Weaver: Mr. Dixon confirmed DNR/DNI. He does look like he has made it through this episode. Dr. Weaver met with patient and sisters this 03/05, they want him to work hard to mobilize at rehab. LEXX was a setback, stopped doing PT. He wants to get home even if he needs wheelchair, wants to be able to transfer, toilet, etc on his own. He has a lift chair they purchased now at rehab. Subjective Subjective Interval history since last seen: Luann is feeling much better. However, nursing noted when he had his peanut butter sandwich, he had some swallowing difficulty. He is not dyspnea and no observed choking spells w/ the peanut butter sandwich. Exam Narrative Exam Narrative: Luann is sitting up in bed, no acute distress, not dyspneic, not coughing. Lungs: clear Heart: RRR, no m,r,g Abdomen: obese, soft, nontender. hood draining clear yellow urine rectal hood draining dark green stool. Objective Last Vital Signs Temp 36.5 C 03/09/24 08:33 Pulse 71 03/09/24 08:33 Resp 17 03/09/24 08:33 BP 129/67 03/09/24 08:33 Pulse Ox 98 03/09/24 08:33 Laboratory Results - last 24 hr 03/08/24 03/08/24 06:10 13:15 C-Reactive Protein 0.54 H Homocysteine 16.8 H Time Spent with Patient Time Spent with Patient: 25-34 minutes Time was spent: preparing to see the patient(eg.review tests), ordering medications,tests, procedures, referring, communicating with other health patient care coordinator, indepentently interpreting results, counseling the patient and care coordination
--- NOTE | 2024-03-09 13:54 | CHAPLAIN ---
The last time I visited with Luann, he was in the ICU. He was moved to Med/Surg a few days ago, but on precautions. Precautions were lifted today. Luann was sitting up in bed talking with his nurse when I visited. He told me that he'll be going back to [facility] before he returns to his apartment in [place] where he has lived for many years. Luann indicated that there is a need for a long talk when he goes back to [facility], but didn't share the details. He said his sister, Karen, will be involved in the conversation as well. He asked his nurse, Ara, to let his two sisters know that he's off precautions. I will continue to visit.
--- NOTE | 2024-03-09 15:16 | CMPROGNOTE_ITS ---
Date of service: 03/09/24 Time of Service: 15:17 Care Management Progress Note Progress Note Text Progress Note Text: S/O: Per , precautions will be removed today. [facility] offered for Luann to return if his IV ABX are ordered Q24; advised IV ABX are Q8 at this time, per MD, anticipate Luann will return to [facility] tomorrow once treatament is complete; CM updated [facility] admission staff and will continue to follow. A: 64 year old male admitted to [facility] 03/02/24 Discharge Plan: Luann will return to [facility] via the facility's W/C van, likely tomorrow when his IV ABX course is completed, the facility will manage his further care needs. SDOH(Care Management) Screening Will the Patient Participate in the Screening?: Unable to obtain
--- NOTE | 2024-03-09 15:40 | SP_ITS ---
Date of service: 03/09/24 Time of Service: 03:40 Subjective Clinical (Bedside) Swallow Evaluation - Inpatient Speech Language Pathology Referred by: Dr. Gill Start time: 15:40 End time: 16:05 Total patient contact: 25 min Referral Type: Routine Swallow Consult Precautions: Standard, DNR/DNI, Fall Reason for Referral/HPI: Patient is a 64 y/o M with DM2, remote history of CVA with residual expressive aphasia, admitted after COVID infection with septic shock (urosepsis), pneumonia, and respiratory failure. He completed course of antivirals. Referred after nursing observed difficulty chewing and swallowing a peanut butter sandwich. 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 Likely acute on chronic and exacerbated by overall deconditioning and poor (though improving) respiratory status at this time. He endorses history of difficulty chewing, foods and purees sticking in his throat, and demonstrates good insight by spontaneously limitiing sip and bite sizes. No s/sx aspiration with thin liquids this date, but patient does demonstrate increased work of breathing and difficulty chewing solid foods. Recommend to modify diet to minced/moist texture and implement aspiration precautions as below. Patient may be a candidate for a diet upgrade as his respiratory status and weakness continue to improve. FURTHER INPATIENT SWEATBAND DECORATING MACHINE OPERATOR SERVICES: Patient to be followed while on unit DISCHARGE RECOMMENDATIONS: Recommend SWEATBAND DECORATING MACHINE OPERATOR services at custodial or home health Diet Recommendations: ? SOLIDS: 5-Minced & Moist Solids LIQUIDS: 0-Thin Liquids MEDICATIONS: Whole or Crushed as able (prn) with bite puree Alter medications only as advised by MD or Pharmacist RISK MANAGEMENT: Level of Assistance/Supervision: 1:1 close supervision for all PO intake Positioning and environment: PO intake only when awake/alert? Reduce auditory and/or visual distractions when eating As upright as tolerated, use HOB controls/bed tilt to achieve upright positioning or Up to chair Oral hygiene Before/after PO intake Using friction with toothbrush on all oral structures as tolerated Strategies/Adaptations/Assistive Equipment: Small sips Small bites Slow rate of intake Swallow between bites, Alternate intake of liquids and solids Reflux Precautions: Small+frequent meals throughout day Maintain fully upright position at least 30 minutes after meals Avoid meals/snacks 2-3 hours prior to reclining/sleeping Sleep with head of bed elevated to reduce likelihood of nocturnal reflux Education Provided to: Nursing Patient Topics Addressed: anatomy/physiology of swallowing mechanism definition and impacts of aspiration overt s/sx to monitor for re: potential aspiration of food / liquids relationship between respiratory function and deglutition rationale and instruction for additional risk management strategies as below SUBJECTIVE: Patient received: alert/awake. Agreeable to evaluation. Pain Reported n/a Baseline Swallow Function: Patient reports difficulty chewing and some difficulty swallowing (endorses need for small bites and sips due to respiratory concerns and difficulty with pharyngeal clearance). 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 Verbal Expression: Moderate-severe expressive aphasia, requires frequent prompting with Y/N questions to clarify anomias in conversation Oral Mechanism Examination: Dentition: Edentulous, no dentures Oral mucosa: WFL ? Cranial Nerve Assessment: CN V ? Trigeminal Facial Sensation WNL Jaw Strength/ROM WNL ?WNL CN VII- Facial WNL labial ROM, strength, coordination. WNL lingual sensation WNL CN IX ? Glossopharyngeal WNL palatal elevation with phonation. No evidence of nasal emissions WNL CN X ? Vagus WNL Vocal quality and volume. Strong/sharp volitional cough WNL CX XII ? Hypoglossal Mild L deviation, poor lateral ROM and strength to resistance bilaterally weak PO Intake: Trials Assessed: IDDSI 0 Thin Liquids IDDSI 4 Puree Solid IDDSI 7 Regular Solid Oral Phase Findings: Difficulty chewing No Pocketing or residue Frequent pauses to breath while chewing Pharyngeal Phase Findings: WFL on exam but endorses stasis at baseline Esophageal Phase Findings: ? No observed or reported symptoms at bedside ? [place] Swallow Protocol Results: FAIL ? Unable to complete without stopping/starting PLAN: Frequency: 2-3x/week for 1-2 weeks Goals: Senior Test Analyst Goals: Patient will remain free from aspiration-related illness, malnutrition, and dehydration. Short Term Goals: Patient will tolerate L5 Minced/Moist Diet and Thin liquids without overt s/s aspiration across 2/2 visits. Patient will tolerate PO trials for consideration of diet upgrade without overt s/s aspiration across 2/2 visits. SWEATBAND DECORATING MACHINE OPERATOR CPT Code: 41465 Clinical Swallowing Evaluation
[2024-03-09 16:12] VITALS: BP 96/55; PULSE 82; RESP 20; TEMP 36.3; O2SAT 94
[2024-03-09] MEDS: Insulin Aspart 300 UNITS/3 ML PEN SC (16:45)
[2024-03-09 20:40] VITALS: BP 105/62; PULSE 68; RESP 16; TEMP 35.5; O2SAT 94
[2024-03-09] MEDS: Insulin Glargine 300 UNITS/3 ML PEN 25 UNITS SC (21:46)
[2024-03-10] MEDS: PIPERACILLIN/TAZO 4.5 GM in Normal Saline 100 ML IVPB ×2 (01:43→09:48)
[2024-03-10 02:38] VITALS: BP 140/64; PULSE 60; RESP 16; TEMP 36; O2SAT 96
[2024-03-10 07:24] LABS: HCT 25.1 % (40.0-50.0); HGB 7.8 g/dL (13.5-17.5); MCH 29.3 pg (27.0-33.0); MCHC 31.1 % (32.0-36.0); MCV 94 fL (80-95); Platelet Count 332 10^3/uL (130-400); RBC 2.66 10^6/uL (4.36-5.78); RDW 16.3 % (11.8-14.1); RDW-SD 55.7 fL; WBC 14.67 10^3/uL (4.4-10.8)
[2024-03-10 07:36] LABS: ALT 30 U/L (16-63); AST 23 U/L (15-37); Albumin 2.1 g/dL (3.4-5.0); Alkaline Phosphatase 54 U/L (46-116); Anion Gap 7.7 mmol/L (3-11); BUN 20 mg/dL (7-18); Bilirubin, Total 0.5 mg/dL (0.2-1.0); CO2 25.3 mmol/L (21.0-32.0); CREATININE 0.8 mg/dL (0.70-1.30); Calcium 8.8 mg/dL (8.5-10.1); Chloride 106 mmol/L (98-107); Estimated GFR 97.61 (mL/min/1.73m2); Glucose 102 mg/dL (74-106); Potassium 3.3 mmol/L (3.5-5.1); Sodium 139 mmol/L (136-145); Total Protein 5.8 g/dL (6.4-8.2)
[2024-03-10 07:41] LABS: C-Reactive Protein < 0.50 mg/dL (<or=0.5)
[2024-03-10 08:19] LABS: Procalcitonin 0.1 ng/mL
[2024-03-10 08:20] VITALS: BP 122/58; PULSE 73; RESP 20; TEMP 36.1; O2SAT 95
[2024-03-10] MEDS: Ipratropium/Albuterol 4 GM 120 PUFF INH IH ×2 (08:33→11:50)
[2024-03-10 08:51] LABS: Absolute Eosinophil Count 0.15 10^3/uL (0.0-0.7); Absolute Lymphocyte Count 3.96 10^3/uL (1.2-3.4); Absolute Monocyte Count 0.73 10^3/uL (0.1-0.8); Absolute Neutrophil Count 9.54 10^3/uL (1.2-6.7); Bands % 2 %
[2024-03-10 08:52] LABS: Diff Comment Manual Differential; Metamyelocytes % 1; Promyelocytes % 1
[2024-03-10 08:53] LABS: Macrocytosis 1+
[2024-03-10] MEDS: aMILoride HCL 5 MG TAB PO (09:47)
[2024-03-10] MEDS: Sucralfate 1 GM TAB PO ×2 (09:47→11:17)
[2024-03-10] MEDS: Potassium Chloride Liquid 20 MEQ PKT PO (09:47)
[2024-03-10] MEDS: dilTIAZem CD 120 MG CAPCR PO (09:47)
[2024-03-10] MEDS: Folic Acid 1 MG TAB 5 MG PO (09:47)
[2024-03-10] MEDS: Pantoprazole 40 MG VIAL 80 MG IVP (09:48)
[2024-03-10] MEDS: Enalapril 5 MG TAB 10 MG PO (09:48)
[2024-03-10] MEDS: Dexamethasone 10 MG/ML VIAL IVP (09:49)
--- NOTE | 2024-03-10 11:49 | NUR.NOTE ---
Nursing Note: Patient adamantly refused to take his medication with puree as recommended by MEDICAL INVESTIGATOR. Notified Dr. Gill who instructed to allow him to take them with thin liquids, one at a time, as the patient requested.
[2024-03-10] MEDS: Insulin Aspart 300 UNITS/3 ML PEN SC (12:17)
--- NOTE | 2024-03-10 12:30 | SPP_ITS ---
Date of service: 03/10/24 Time of Service: 12:00 Subjective Subjective: Patient received alert/awake, conversant Objective: Patient Positioning: upright in bed Oxygen Tolerance: tolerating room air Oral Hygiene: reported to be completed recently PO Trials Assessed: IDDSI 0 Thin Liquids (broth via cup, water via straw) IDDSI 4 Puree Solid (popsicle, ice cream) (Declined alternate trials) Oral Phase Findings: Difficulty chewing No pocketing/residue Pharyngeal Phase Findings: WFL Assessment/Impression: Luann was seen today for dysphagia follow-up during noon meal. Per nursing, no diet tolerance concerns however patient is adamant that he prefers taking pills 1 at a time with water vs in puree. For noon meal, patient only taking broth, popsicle, ice cream per preference. He was able to self-feed w/ left hand given assistance pouring/opening packages. No overt s/s aspiration appreciated. Education reinforced with patient re: rationale for COMPOSITION STONE APPLICATOR visit and stardard swallowing precautions. Plan: Frequency: Will monitor further COMPOSITION STONE APPLICATOR needs; patient appears to be at baseline Recommendation at Discharge: Not indicated - patient appears to be at baseline Diet Recommendations: SOLIDS: 5- minced and moist LIQUIDS: 0-Thin Liquids MEDICATIONS: Whole with 0-Thin Liquids 1 at a time RISK MANAGEMENT: HOB upright as tolerated; upright for all PO intake. Oral hygiene ?BID/2x per day Level of Assistance/Supervision: Assistance with positioning, tray set up, and feeding (unless finger food). Intermittent supervision encouraged, primarily to check with assistance needs Posture/Positioning Needs: Maintain upright position at least 30 minutes after meals Education Provided to: Nursing, Patient Topics Addressed: role of COMPOSITION STONE APPLICATOR, standard swallowing precautions, upgrade to order for meds with sips vs puree Total Time: 15 min (1200-1215pm) [place] [id number] Assessment and Plan Assessment and plan (1) UTI (urinary tract infection): Status: Acute (2) SALINAS (acute kidney injury): Status: Acute (3) Acute hyponatremia: Status: Resolved (4) Anemia: Status: Chronic
[2024-03-10] MEDS: Potassium Chloride 10 MEQ CAPCR 40 MEQ PO (14:29)
--- NOTE | 2024-03-10 14:51 | W.PM.DS.N ---
Date of service: 03/10/24 Time of Service: 14:51 DS: Diagnosis Discharge Diagnosis (1) Septic shock: Status: Resolved (2) Pneumonia: Status: Acute (3) COVID-19: Status: Acute (4) Atrial fibrillation with rapid ventricular response: Status: Acute (5) UTI (urinary tract infection): Status: Acute (6) SALINAS (acute kidney injury): Status: Acute (7) Acute hyperkalemia: Status: Resolved (8) Acute hyponatremia: Status: Resolved (9) Anemia: Status: Chronic (10) Gastrointestinal hemorrhage with melena: Status: Acute Discharge Plan Disposition Patient Disposition: [facility] Facility(SNF) Condition: Improving Discharge Details Reason For Visit: Sepstic shock, hyponatremia, hyperkalemia Admit Date/Time: 03/02/24 17:35 Admit Provider: Braden Weaver Attending Provider: Braden Weaver Primary Care Provider: Bright Finney Hospital Course Hospital Course: 64-year-old male with history of type 2 diabetes mellitus, morbid obesity, BMI greater than 50, 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 Patient been diagnosed about 2 weeks prior with COVID found to be positive SARS-CoV-2 test on admission required supplemental oxygen was found to have a pneumonia but also found to have a urinary tract infection and presented in septic shock. Patient was admitted in the intensive care unit resuscitated with IV fluids required multiple vasopressors including norepinephrine and subsequently epinephrine as well as vasopressin and dobutamine. Patient was treated with broad-spectrum antibiotics including Zosyn and vancomycin. Blood cultures grew 1 out of 2 cultures positive for coagulase-negative staph. This was felt to be contaminant vancomycin was discontinued on 03/06/2024. Norepinephrine was switched to epinephrine. Shock resolved by 03/04/2024 and epinephrine and dobutamine were discontinued vasopressin was continued through 03/06/2024. He had acute kidney injury with peak creatinine 2.2 which is since recovered. COVID-19 was treated with remdesivir x 5 days pneumonia was treated with Zosyn after initially treated with cefepime and vancomycin. Zosyn was favored over the cefepime because of the Klebsiella pneumonia a urinary tract infection which showed multiple resistances including all cephalosporins, ampicillin, gentatmicin and tobramycin but sensitive to TMP/SMX and imipenem and zosyn. He was treated w/ Zosyn 03/02-03/03 then changed to cefepime for his pneumonia but when the urine culture came back positive for resistant Klebsiella, he was put back on Zosyn on 03/05 through the day of his discharge 03/10. He will be placed on Fosfomyin 3 gm oral q3d x two doses. Repeat UA should be done in the next week. Follow up BMP and CBC should be obtained in the next week. Hospital course was complicated by GI bleeding for which he was put on protonix and carafate. Hb on admission 8.9 gm and fluctuated between 8 gm and 7.8 gm. He did not receive any endscopy as he was too unstable from a hemodynamic and respitory standpoint. He was not intubated but managed w/ BIPAP and subsequently weaned to HFNC and then weaned to room air. He has been on room air since 03/06. His shock and COVID was treated w/ high dose dexamethasone. He will be sent home on a prednisone taper. Radford catheter was removed the day before his discharge and he was voiding on his own but has urinary incontinence. His flomax has been resumed. Patient's anemia was evaluated w/ folate, B12 level and iron levels. Folate was found to be deficient at 4.2, he was begun on folic acid 5 mg daily. Repeat levels including homocysteine level should be done in 2 to 4 weeks. B12 level was normal at 481 pg/mL. Iron levels were checked and iron was normal at 93 mcg/dL and TIBC was low at 164 and transferrin saturation was high at 57%. The patient had new onset of atrial fibrillation w/ rapid ventricular rate which was initially treated w/ iv diltiazem and converted to NSR and he was put on long acting diltiazem CD. Echocardiogram was done and showed hyperdynamic LV, mild RV dilatation but normal RV systolic function. Moderate aortic stenosis. Patient received P.T. while hospitalized from 03/07 to discharge. BULLET CHARGING MACHINE OPERATOR consulted on him and recommended minced and moist solids and thin liquids. See BULLET CHARGING MACHINE OPERATOR consult note from 03/10. Home Meds and New Rx's Prescriptions: New sucralfate 1 gram Tablet 1 g PO AC & HS Qty: 0 0RF potassium chloride 20 mEq Packet 20 meq PO BIDWMEAL Qty: 0 0RF lidocaine HCl [Glydo] 2 % Jelly In Applicator 6 ml topical DIRECTED PRN (Reason: Pain) Qty: 0 0RF insulin aspart U-100 100 unit/mL (3 mL) Insulin Pen 0 unit subcut 0800,1200,1700 Qty: 0 0RF insulin glargine [Lantus Solostar U-100 Insulin] 100 unit/mL (3 mL) Insulin Pen 20 unit subcut HS Qty: 0 0RF Combivent Respimat 20-100 mcg/actuation Mist 1 puff inhalation QID Qty: 0 0RF enalapril maleate 5 mg Tablet 10 mg PO DAILY Qty: 0 0RF dextrose [Glutose-15] 40 % Gel 15 g PO DIRECTED PRNQty: 0 0RF amiloride 5 mg Tablet 5 mg PO DAILY Qty: 0 0RF diltiazem HCl 120 mg Capsule,Extended Release 24hr 120 mg PO DAILY Qty: 0 0RF folic acid 1 mg Tablet 5 mg PO DAILY Qty: 0 0RF albuterol sulfate [Ventolin HFA] 90 mcg/actuation Hfa Aerosol Inhaler 2 puff inhalation Q4H PRN PRNQty: 0 0RF Inhaler, Assist Devices [Pocket Chamber] 1 ea miscellaneous DIRECTED Qty: 0 0RF pantoprazole [Protonix] 40 mg tablet,delayed release (DR/EC) 40 mg PO BID Qty: 60 0RF fosfomycin tromethamine 3 gram packet See Rx Instructions .ROUTE .COMPLEX Qty: 1 1RF Rx Instructions: 3 g orally po q3 days x two doses Continued triamcinolone acetonide 0.1 % cream 1 applic TOPICAL BID Patient Comments: APPLY TOPICALLY TO THE AFFECTED AREA(S) TWO TIMES A DAY NEEDED tamsulosin 0.4 mg capsule 0.4 mg PO DAILY Patient Comments: TAKE ONE CAPSULE BY MOUTH EVERY DAY simvastatin 20 mg tablet 20 mg PO DAILY Patient Comments: TAKE ONE TABLET BY MOUTH AT BEDTIME acetaminophen 325 mg capsule 650 mg PO Q4H PRN Discontinued furosemide 40 mg tablet 40 mg PO DAILY Patient Comments: TAKE ONE TABLET BY MOUTH EVERY DAY enalapril maleate 20 mg tablet 20 mg PO DAILY Patient Comments: TAKE ONE TABLET BY MOUTH EVERY DAY pioglitazone 45 mg tablet 45 mg PO DAILY Patient Comments: TAKE ONE TABLET BY MOUTH EVERY DAY amiloride 5 mg tablet 5 mg PO DAILY Patient Comments: TAKE ONE TABLET BY MOUTH EVERY DAY gabapentin 100 mg capsule 100 mg PO TID Patient Comments: TAKE ONE CAPSULE BY MOUTH THREE TIMES A DAY nifedipine 60 mg tablet extended release 60 mg PO DAILY Patient Comments: TAKE TWO TABLETS BY MOUTH EVERY DAY Invokana 100 mg tablet 100 mg PO DAILY Patient Comments: TAKE ONE TABLET BY MOUTH EVERY DAY potassium chloride 20 mEq tablet extended release 20 meq PO DAILY Discharge Instructions Instructions: Acute Kidney Injury (DC), Sepsis (DC) Care Plan Goals: consult P.T. and O.T. to work on strength training, improve ADL performance, improve transfers in and out of bed to chair; consult BULLET CHARGING MACHINE OPERATOR to follow up swallowing, see Elina Krishna recommendations Referrals: Susana Rivera, BULLET CHARGING MACHINE OPERATOR [SPEECH LANGUAGE PATHOLOGIST] - (arrange outpatient follow up) Activity:: Activity as Tolerated Equipment/Supplies:: Walker Diet:: Carb Counting Discharge Orders Discharge Orders: Discharge Order (Routine); Ordered 03/10/24 Ordered By: Aneudy Gill Other Ambulatory Orders: Urinalysis (Routine) Timeframe: 1 Week Facility: [facility] - Location: Laboratory Outpatient - [facility] Ordered By: Aneudy Gill Basic Metabolic Panel (Routine) Timeframe: 1 Week Facility: [facility] - Location: Laboratory Outpatient - [facility] Ordered By: Aneudy Gill Complete Blood Count w/Diff (Routine) Timeframe: 1 Week Facility: [facility] - Location: Laboratory Outpatient - [facility] Ordered By: Aneudy Gill DS: Summary Time Spent with Patient providing and/or coordinating discharge services: Greater than 30 minutes Specific discharge activities: Interview/exam of patient; review of discharge instructions, completion of prescriptions/discharge instructions; discussion w/ nursing and CM; documentation of hospital visit Status at Discharge Functional status at discharge: wheelchair bound Overall status at discharge: patient is progressing back to baseline Mental Status: mental status grossly normal Speech and Movement: speech and movement normal Mood: congruent mood Affect: normal affect Quality:SDOH Health Related Social Needs: No Data to Display Exam Narrative Exam Narrative: Luann is sitting up in bed, alert, oriented to person/circumstances/place; he is watching TV, I explained to him that he is going to [facility] today. He seemed surprised and asked me to call his sister Florence, which I did. He is on room air, no tachypnea or respirtory symptoms Lungs: clear anteriorly and posteriorly Heart: regular, no murmur, or rub Abdomen: soft, nontender, normal bowel sounds, obese Extremities: no edema, warm and dry Psych Mental Status: mental status grossly normal Speech and Movement: speech and movement normal Mood: congruent mood Affect: normal affect DS: Data Vitals/I&O Vitals and I&O: Vital Signs Temperature 36.1 C L 03/10/24 08:20 Temperature Source Temporal Artery Scan 03/10/24 08:20 Pulse 73 03/10/24 08:20 Pulse Rhythm Irregular 03/09/24 22:27 Pulse 93 H 03/06/24 15:01 Respiratory Rate 20 03/10/24 08:20 Respiratory Effort Normal 03/09/24 22:27 Respiratory Depth Shallow 03/09/24 22:27 Respiratory Pattern Normal 03/09/24 22:27 Blood Pressure 122/58 L 03/10/24 08:20 Blood Pressure Mean 93 03/06/24 16:37 Blood Pressure Position Supine 03/06/24 16:37 Pulse Oximetry 95 03/10/24 08:20 Oxygen Delivery Method Room Air 03/10/24 08:20 Oxygen Flow Rate 0 03/10/24 08:20 Fraction of Inspired Oxygen (FIO2) 33 03/05/24 08:05 Pain Level 0 03/10/24 09:48 Comment vasopresser off at this time 03/05/24 10:06 Arterial Systolic 134 03/03/24 11:00 Arterial Diastolic 38 03/03/24 11:00 Arterial Mean 61 03/03/24 11:00 Intake & Output 03/09/24 03/10/24 03/10/24 23:59 11:59 23:59 Intake Total 200 / 664.583 550 / 550 Output Total 1000 / 2100 100 / 100 Balance -800 / -1435.417 450 / 450 Intake: IV 200 / 364.583 100 / 100 Oral 450 / 450 Output: Urine 650 / 1450 100 / 100 Stool 350 / 650 Other: Urine Color Yellow Yellow Urine Appearance Clear Urine Odor Normal Strong Comment pt did void in bed, as the male condom cath slipped off. pt had a condom catheter that had fallen off, there was 100ml in the bag. pt was otherwise incontinent after the catheter fell off. Stool Size Smear Small Stool Characteristics Liquid Brown Liquid Black Brown Voiding Methods Diaper Diaper Incontinent Incontinent Data Completed and Pending Labs on day of discharge: Labs from last 24 hours 03/10/24 03/10/24 06:00 06:00 WBC 14.67 H RBC 2.66 L Hgb 7.8 L Hct 25.1 L MCV 94 MCH 29.3 MCHC 31.1 L RDW 16.3 H Plt Count 332 MPV 10.0 Immature Gran % 0.0 Neutrophils % 63.0 Band Neutrophils % 2 Lymphocytes % 27.0 Monocytes % 5.0 Eosinophils % 1.0 Basophils % 0.0 Metamyelocytes % 1 Promyelocytes % 1 Nucleated RBC % 0.0 Absolute Neutrophils 9.54 H Absolute Lymphocytes 3.96 H Absolute Monocytes 0.73 Absolute Eosinophils 0.15 Absolute Basophils 0.00 RBC Morphology See Below Macrocytosis 1+ Sodium 139 Potassium 3.3 L Chloride 106 Carbon Dioxide 25.3 Anion Gap 7.7 BUN 20 H Creatinine 0.8 Est GFR (CKD-EPI 2020) 97.61 Glucose 102 Calcium 8.8 Total Bilirubin 0.5 AST 23 ALT 30 Alkaline Phosphatase 54 C-Reactive Protein < 0.50 Cancelled Total Protein 5.8 L Albumin 2.1 L Procalcitonin 0.1 PFSH All Active Problems Atrial fibrillation with rapid ventricular response (Acute) Goals of care, counseling/discussion (Acute) Gastrointestinal hemorrhage with melena (Acute) Hypoxic respiratory failure (Acute) UTI (urinary tract infection) (Acute) Uremia (Acute) Hyperglycemia (Acute) SALINAS (acute kidney injury) (Acute) Anemia (Chronic) Upper GI bleeding (Acute) Leukocytosis (Acute) Pressure ulcer (Acute) COVID-19 (Acute) DVT prophylaxis (Acute) Pneumonia (Acute) Medical History Venous stasis dermatitis of both lower extremities Benign prostatic hyperplasia Hypertension Hemiparesis affecting right side as late effect of stroke Type 2 diabetes mellitus Social History Smoking/Tobacco Use Status: Never Smoking risk assessment performed?: Yes Alcohol Intake: never Substance use type: does not use Housing: assisted living facility Additional Social history: Right hemiparesis for many years after stroke in 30s, but was able to drive and live alone in [place] until January hospitalization Time Spent with Patient Time Spent with Patient: 45-69 minutes Time was spent: preparing to see the patient(eg.review tests), ordering medications,tests, procedures, referring, communicating with other health career guidance technician, indepentently interpreting results, counseling the patient and care coordination
[2024-03-10] MEDS: Bacitracin 1 PACKET TP (15:57)
--- NOTE | 2024-03-10 16:37 | NUR.NOTE ---
Nursing Note: Patient was transferred by EMS 16:20. Several attempts have been made to call nurse-tonurse report to [facility], but were unsuccessful in reaching staff. Will try again.
--- NOTE | 2024-03-10 17:04 | CMDISCH_ITS ---
Date of service: 03/10/24 Time of Service: 17:04 LACE Index Scoring Tool Questions: Length of Stay (in days): 7 - 13 Was the patient admitted via the E.D.?: Yes Comorbidities: Cerebrovascular Disease E.D. Visits: 1 Answers: Total Score: 10 Risk of Readmission: High Risk Care Management Discharge Plan Reason for Hospitalization: Septic shock, hyponatremia, hyperkalemia Discharge Plan: Luann will return to [facility] via EMS, the facility will manage his further care needs. CM reviewed plan with Luann and his sister Florence; confirmed Luann's lift chair was available in his room and supported Luann in calling his daughter, Natali as well. Patient/Family Education Needs: Review discharge instructions, discuss Ask Me Three Services Needed at Discharge: Nursing Home Facility (Return to [facility] ) and Transportation (EMS) [facility] Health Related Social Needs: No Data to Display
[2024-03-11 13:58] LABS: Methylmalonic Acid 0.18 nmol/mL (<=0.40)
== END 2024-03-10 16:21 | disposition skilled nursing facility (03) | DRG 871 ==
LOC: ER 17:08 → ICU 18:31 → MS 03-06 17:18
PROVIDERS: Family Medicine; Internal Medicine; Student in an Organized Health Care Education/Training Program; Admitting Provider Family Medicine; Emergency Provider Student in an Organized Health Care Education/Training Program; PCP Optometrist; Visit Provider Family Medicine
DX: A41.9 Sepsis, unspecified organism (principal); J18.9 Pneumonia, unspecified organism; R65.21 Severe sepsis with septic shock; U07.1 COVID-19; J96.21 Acute and chronic respiratory failure with hypoxia; E87.1 Hypo-osmolality and hyponatremia; N17.9 Acute kidney failure, unspecified; N39.0 Urinary tract infection, site not specified; K92.1 Melena; I69.351 Hemiplegia and hemiparesis following cerebral infarction affecting right dominant side; Z16.12 Extended spectrum beta lactamase (ESBL) resistance; Z68.43 Body mass index [BMI] 50.0-59.9, adult; E87.5 Hyperkalemia; E11.65 Type 2 diabetes mellitus with hyperglycemia; I69.320 Aphasia following cerebral infarction; I87.2 Venous insufficiency (chronic) (peripheral); D72.829 Elevated white blood cell count, unspecified; N40.0 Benign prostatic hyperplasia without lower urinary tract symptoms; L89.899 Pressure ulcer of other site, unspecified stage; D64.9 Anemia, unspecified; Z66 Do not resuscitate; I48.91 Unspecified atrial fibrillation; L89.322 Pressure ulcer of left buttock, stage 2; L89.312 Pressure ulcer of right buttock, stage 2; B96.1 Klebsiella pneumoniae [K. pneumoniae] as the cause of diseases classified elsewhere; E66.01 Morbid (severe) obesity due to excess calories; E53.8 Deficiency of other specified B group vitamins; R32 Unspecified urinary incontinence; R13.10 Dysphagia, unspecified; Z79.84 Long term (current) use of oral hypoglycemic drugs
CPT/HCPCS: 36620; 00123; 36415; 36556; 36591; 71045; 80048; 80053; 80186; 82803; 82805; 83090; 84145; 85027; 85384; 85652; 86850; 86900; 86901; 87040; 87077; 87449; 87637; 87641; 92526; 92610; 93005; 93308; 94640; 96365; 96366; 96367; 96368; 96375; 97110; 97163; 99291; 99292; 80202; 81003; 81015; 82140; 82607; 82728; 82746; 83540; 83550; 83605; 83735; 83880; 84100; 84443; 84484; 85014; 85018; 85025; 85045; 85379; 85610; 86140; 87070; 87086; 87186; 87205; 87899; 93010; 93041; 93306; 94660; 94664; 94760; 99223; 99231; 99232; 99233; 99239; J0171; J0248; J0283; J0613; J0692; J1100; J1250; J1650; J1720; J1815; J2270; J2371; J2470; J2543; J2598; J3372; J3475; J3480; J3490; J7042; J7613

== ENCOUNTER → 2024-03-03 11:32 | Outpatient (BNVA) | payer MEDICARE, MEDICAID, SELFPAY | PROVIDERS: PCP Optometrist; Referring Provider Optometrist; Visit Provider Student in an Organized Health Care Education/Training Program ==

== ENCOUNTER 2024-03-16 18:14 | Inpatient (IN) | payer MEDICARE, MEDICAID, SELFPAY ==
[2024-03-16] VITALS (69 sets, daily range): BP systolic 71–134; BP diastolic 27–111; PULSE 73–112; RESP 14–46; TEMP 36–36.5; O2SAT 86–100
--- NOTE | 2024-03-16 18:15 | RT.EKG_ITS ---
APPROVED REPORT Exam: Resting ECG Reason for Exam: abdominal pain Patient Location: E HR:97 bpm ECG Measurements Heart Rate 97 AXIS VT 137 P 51 QRSd 74 QRS 5 QT 327 T 93 QTc 415 Conclusion Sinus rhythm. 97 normal axis no stemi
--- NOTE | 2024-03-16 18:28 | DI.CT_ITS ---
Exam(s) CT ABDOMEN PELVIS CTA EXAM: CT ABDOMEN PELVIS CTA CLINICAL HISTORY: abdominal pain. TECHNIQUE: Imaging Protocol: Axial CT angiography was performed with multi-slice acquisition and m ulti-planar and/or 3D reconstructions. CONTRAST MATERIAL: Intravenous: Omnipaque 350 Contrast volume:100mL Oral: No COMPARISON: There are no priors for comparison. FINDINGS: There is patient motion artifact. There is also artifact due to the patient's positioning of the rig ht upper extremity. ABDOMEN AND PELVIS: Abdomen: Celiac axis/mesenteric arteries: No evidence of occlusion or significant stenosis. Atherosclerosis is seen at the origin of the superior mesenteric artery with very mild stenosis present. Renal Arteries: No evidence of occlusion or significant stenosis. There is atherosclerosis at the iesha gin of both renal arteries but very mild stenosis. Aorta: No evidence of occlusion or significant stenosis. No aneurysm or dissection. Atherosclerotic calcification is present. Pelvis: Iliac Arteries: No evidence of occlusion or significant stenosis. Atherosclerotic calcification is p resent. Common Femoral Arteries: No evidence of occlusion or significant stenosis. Atherosclerotic calcifica tion is present. ABDOMEN: Lung bases: Dependent atelectatic changes are seen in the lung bases. Coronary artery calcifications are present. Liver: Normal density. No measurable mass. Portal, Superior Mesenteric, and Splenic Veins: Unremarkable. Gallbladder and Biliary Tract: No radiodense calculus or dilation. Pancreas: Normal density, no abnormal calcifications or inflammatory process. Spleen: Normal. Adrenals: No masses seen. Kidneys: Normal size, contour and axis. No radiodense stones or obstructive uropathy. There is a simp le right renal cysts. No follow-up is recommended. There are few tiny hypodensities seen in the lef t kidney. They are too small for further characterization but likely reflect small cysts. No follow -up is recommended. Bowel: No obstruction or bowel wall thickening. No evidence of appendicitis. No pneumatosis. Peritoneal Cavity: No ascites, collection or mesenteric inflammatory response. No free air. Lymph Nodes: Within normal limits. Bones: Within normal limits for the patient's age. Soft Tissues: There is a small fat containing umbilical hernia. PELVIS: Bladder: Symmetric distention, no gross wall thickening. Reproductive Organs: Prostatic calcifications are present. Lymph Nodes: Within normal limits. Bones: Within normal limits. IMPRESSION: 1. Atherosclerotic calcification without significant stenosis. 2. Patent portal, superior mesenteric and splenic veins. 3. No acute abdominal or pelvic process. RADIATION DOSE DELIVERED: 2,567.57mGy.cm Total DLP DATA REPOSITORY: All CT scans at this facility are submitted to the National Radiology Data Registry (NRDR) Dose Index Registry (DIR) with the [employer] (A[employer]). RADIATION OPTIMIZATION: All CT scans at this facility use at least one of these dose optimization te chniques: automated exposure control; mA and/or kV adjustment per patient size (includes targeted exa ms where dose is matched to clinical indication); or iterative reconstruction.
[2024-03-16 18:38] LABS: Lactate 1.5 mmol/L (0.6-1.4)
[2024-03-16 18:46] LABS: Abs Immature Grans 0.19 10^3/uL (0.0-0.06); Absolute Basophil Count 0.01 10^3/uL (0.0-0.2); Absolute Monocyte Count 0.94 10^3/uL (0.1-0.8); Basophils % 0.1 %; Eosinophils % 0.7 %; Immature Grans % 1.6 %; MCH 29.9 pg (27.0-33.0); MCHC 29.8 % (32.0-36.0); MCV 101 fL (80-95); MPV 9.9 fL (8.0-11.0); Monocytes % 7.7 %; Neutrophils % 75.9 %; Nucleated RBC 0.4 % (0.0-0.3); Platelet Count 294 10^3/uL (130-400); RBC 1.87 10^6/uL (4.36-5.78); RDW-SD 69.7 fL; WBC 12.17 10^3/uL (4.4-10.8)
[2024-03-16 18:47] LABS: Absolute Eosinophil Count 0.09 10^3/uL (0.0-0.7); Absolute Neutrophil Count 9.24 10^3/uL (1.2-6.7)
[2024-03-16 18:49] LABS: HCT 18.8 % (40.0-50.0); HGB 5.6 g/dL (13.5-17.5)
[2024-03-16 18:54] LABS: INR 1.2 (0.9-1.1); Prothrombin Time 12.1 sec (9.1-11.1)
[2024-03-16 19:03] LABS: ALT 18 U/L (16-63); AST 13 U/L (15-37); Alkaline Phosphatase 60 U/L (46-116); Anion Gap 11.3 mmol/L (3-11); BUN 64 mg/dL (7-18); Bilirubin, Total 0.3 mg/dL (0.2-1.0); CO2 17.7 mmol/L (21.0-32.0); CREATININE 1.9 mg/dL (0.70-1.30); Calcium 8.6 mg/dL (8.5-10.1); Chloride 106 mmol/L (98-107); Estimated GFR 38.42 (mL/min/1.73m2); Glucose 137 mg/dL (74-106); Lipase 45 U/L (16-77); Magnesium 1.8 mg/dL (1.8-2.4); Sodium 135 mmol/L (136-145); Troponin I < 50 ng/L (< or =60)
[2024-03-16 19:06] LABS: Potassium 6.8 mmol/L (3.5-5.1)
[2024-03-16 19:11] LABS: Procalcitonin 0.3 ng/mL
[2024-03-16] MEDS: Normal Saline - Diluent 50 ML VIAL IJ (19:46)
[2024-03-16] MEDS: Omnipaque 350 MG/ML 100 ML BTL IJ (19:46)
[2024-03-16] MEDS: Sodium Bicarbonate 50 MEQ/50 ML SYR 25 MEQ IVP (19:52)
[2024-03-16] MEDS: Albuterol 2.5 MG/3 ML INH SOLN VIAL 10 MG UPD (19:52)
[2024-03-16] MEDS: Dextrose 50%-Water 25 GM/50 ML SYR IVP (19:52)
[2024-03-16] MEDS: Insulin REGULAR-Human 100 UNITS/ML UNIT 10 UNITS IV (19:52)
[2024-03-16] MEDS: Normal Saline 1,000 ML 1000 ML IV (19:58)
--- NOTE | 2024-03-16 20:15 | DI.RAD_ITS ---
Exam(s) XR PORTABLE CHEST AP POST LINE EXAM: XR PORTABLE CHEST AP POST LINE CLINICAL HISTORY: line verify TECHNIQUE: 2D digital imaging was performed of the chest. One image was obtained. An AP view was ob tained. COMPARISON: CR XR PORTABLE CHEST AP POST LINE from 03/02/2024 FINDINGS: MEDIASTINUM: Normal. HEART: Normal. PULMONARY VASCULATURE: Normal. LUNGS: There are low lung volumes. There has been an overall improvement in the pulmonary infiltrate s with a small residual infiltrate seen in the right lung base. There is also a small persistent lef t perihilar infiltrate. PLEURAL SPACE: No pleural effusion or pneumothorax. BONE:Within normal limits for the patient's age. OTHER FINDINGS:The tip of the right IJ catheter is seen in the superior vena cava. IMPRESSION: 1. The tip of the right IJ catheter is in good position in the superior vena cava. 2. Overall improvement in the bilateral pulmonary infiltrates which residual infiltrate seen in the l eft perihilar and right lung base regions. DATA REPOSITORY: RADIATION DOSE DELIVERED:
[2024-03-16] MEDS: Lidocaine/Epinephri/Tetracaine Topical Gel 3 ML (20:42)
[2024-03-16] MEDS: Pantoprazole 40 MG VIAL 80 MG IVP (20:43)
--- NOTE | 2024-03-16 21:14 | DI.VRAD_ITS ---
Addendum created by Thierry Shankar MD on 03/16/2024 9:16:11 PM EDT: Correction: There is mild stenosis of the origin of the celiac, superior mesenteric and bilateral renal arteries. No severe stenosis or occlusion evident. Initial report created on 03/16/2024 9:13:29 PM EDT: PROCEDURE INFORMATION: Exam: CTA Abdomen and Pelvis With Contrast Exam date and time: 03/16/2024 7:17 PM Age: 64 years old Clinical indication: Abdominal pain; Generalized TECHNIQUE: Imaging protocol: Computed tomographic angiography of the abdomen and pelvis with contrast. Exam focused on the arteries. 3D rendering (Not supervised by radiologist): MIP and/or 3D reconstructed images were created by the technologist. Contrast material: OMNI 350; Contrast volume: 100 ml; Contrast route: INTRAVENOUS (IV); COMPARISON: CR XR PORTABLE CHEST AP POST LINE 03/02/2024 4:18 PM FINDINGS: Lungs: Mild subpleural infiltrate versus atelectasis in the right lung base. Mild subsegmental atelectasis in the left lung base. Aorta: Moderate atherosclerotic calcification of the aorta and iliac arteries. No evidence of aneurysm or dissection. Celiac trunk and mesenteric arteries: No occlusion or significant stenosis. Renal arteries: No occlusion or significant stenosis. Right iliac arteries: No occlusion or significant stenosis. Left iliac arteries: No occlusion or significant stenosis. Liver: No mass. Gallbladder and bile ducts: Unremarkable. No calcified stones. No ductal dilation. Pancreas: Unremarkable. No mass. No ductal dilation. Spleen: Unremarkable. No splenomegaly. Adrenal glands: Unremarkable. No mass. Kidneys and ureters: Simple appearing 6 cm cortical cysts of the right kidney. Left kidney appears normal. No hydronephrosis. Stomach and bowel: Unremarkable. No obstruction. No mucosal thickening. Appendix: No evidence of appendicitis. Intraperitoneal space: Unremarkable. No free air. No significant fluid collection. Lymph nodes: Unremarkable. No enlarged lymph nodes. Urinary bladder: Unremarkable. No mass. Reproductive: Unremarkable as visualized. Bones/joints: Moderate degenerative changes throughout the lower spine. No vertebral body compression or acute fracture. Partially visualized thoracic scoliosis. Soft tissues: Unremarkable. Other findings: Study slightly limited by motion artifact. IMPRESSION: 1. Mild subpleural infiltrate versus atelectasis in the right lung base 2. No acute abnormality evident abdomen pelvis. Chronic appearing findings as noted. Dictated and Authenticated by: Thierry Shankar MD. Ordering:EZRA Adame MD
--- NOTE | 2024-03-16 21:15 | ED.GENADUL_ITS ---
Discharge Plan Disposition Patient Disposition: Admit to [facility] Condition: Poor Discharge Details Chief Complaint: Abd Prob Clinical Impression: Anemia, Acute renal insufficiency, Acute CVA (cerebrovascular accident), Acute right hemiparesis, Acute hyperkalemia Primary Care Provider: Bright Finney ED Provider: Joel Choe Home Meds and New Rx's Prescriptions: No Action triamcinolone acetonide 0.1 % cream 1 applic TOPICAL BID Patient Comments: APPLY TOPICALLY TO THE AFFECTED AREA(S) TWO TIMES A DAY NEEDED tamsulosin 0.4 mg capsule 0.4 mg PO DAILY Patient Comments: TAKE ONE CAPSULE BY MOUTH EVERY DAY simvastatin 20 mg tablet 20 mg PO DAILY Patient Comments: TAKE ONE TABLET BY MOUTH AT BEDTIME acetaminophen 325 mg capsule 650 mg PO Q4H PRN sucralfate 1 gram Tablet 1 g PO AC & HS Qty: 0 0RF potassium chloride 20 mEq Packet 20 meq PO BIDWMEAL Qty: 0 0RF insulin aspart U-100 100 unit/mL (3 mL) Insulin Pen 0 unit subcut 0800,1200,1700 Qty: 0 0RF insulin glargine [Lantus Solostar U-100 Insulin] 100 unit/mL (3 mL) Insulin Pen 20 unit subcut HS Qty: 0 0RF Combivent Respimat 20-100 mcg/actuation Mist 1 puff inhalation QID Qty: 0 0RF enalapril maleate 5 mg Tablet 10 mg PO DAILY Qty: 0 0RF dextrose [Glutose-15] 40 % Gel 15 g PO DIRECTED PRNQty: 0 0RF amiloride 5 mg Tablet 5 mg PO DAILY Qty: 0 0RF diltiazem HCl 120 mg Capsule,Extended Release 24hr 120 mg PO DAILY Qty: 0 0RF folic acid 1 mg Tablet 5 mg PO DAILY Qty: 0 0RF albuterol sulfate [Ventolin HFA] 90 mcg/actuation Hfa Aerosol Inhaler 2 puff inhalation Q4H PRN PRNQty: 0 0RF Inhaler, Assist Devices [Pocket Chamber] 1 ea miscellaneous DIRECTED Qty: 0 0RF pantoprazole [Protonix] 40 mg tablet,delayed release (DR/EC) 40 mg PO BID Qty: 60 0RF fosfomycin tromethamine 3 gram packet See Rx Instructions .ROUTE .COMPLEX Qty: 1 1RF Rx Instructions: 3 g orally po q3 days x two doses bisacodyl [Gentle Laxative (bisacodyl)] 10 mg suppository 10 mg LA DAILY PRN HPI General Date/Time Provider Initiated Documentation: 03/16/24 18:28 . Limitations to Documentation: physical limitation . Information obtained by: patient, EMS and old records reviewed . HPI Narrative: 64-year-old gentleman with past medical history of A-fib, RVR, GI bleed, CVA with right hemiparesis presents for evaluation of abdominal pain. Patient presented via EMS from the rehab facility across the street. Per nursing report, the patient was complaining of abdominal pain. The patient denies any abdominal pain at this time. History is difficult to obtain from the patient secondary to the speech deficits from his CVA. Nursing report was that the abdominal pain started today.. There is no report of vomiting or diarrhea. No change in stool concerning for bright red blood or melena. No additional hi story is available at this time from the patient or the facility. Related Data Home Medications Medication Instructions Recorded Confirmed acetaminophen 325 mg capsule 650 mg PO Q4H PRN 03/02/24 03/16/24 simvastatin 20 mg tablet 20 mg PO DAILY 03/02/24 03/16/24 tamsulosin 0.4 mg capsule 0.4 mg PO DAILY 03/02/24 03/16/24 triamcinolone acetonide 0.1 % 1 applic topical BID 03/02/24 03/16/24 topical cream Inhaler, Assist Devices [Pocket 1 ea miscellaneous DIRECTED ##0 03/10/24 03/16/24 Chamber] albuterol sulfate 90 mcg/actuation 2 puff inhalation Q4H PRN PRN #0 03/10/24 03/16/24 aerosol inhaler (Ventolin HFA) grams amiloride 5 mg tablet 5 mg PO DAILY #0 tabs 03/10/24 03/16/24 dextrose 40 % oral gel (Glutose-15) 15 g PO DIRECTED PRN #0 grams 03/10/24 03/16/24 diltiazem HCl 120 mg 120 mg PO DAILY #0 caps 03/10/24 03/16/24 capsule,extended release 24 hr enalapril maleate 5 mg tablet 10 mg (2 x 5 mg) PO DAILY #0 tabs 03/10/24 03/16/24 folic acid 1 mg tablet 5 mg (5 x 1 mg) PO DAILY #0 tabs 03/10/24 03/16/24 fosfomycin tromethamine 3 gram See Rx Instructions .Route 03/10/24 03/16/24 oral packet .COMPLEX #1 ea insulin aspart U-100 100 unit/mL 0 unit (0 mL) subcut 03/10/24 03/16/24 (3 mL) subcutaneous pen 0800,1200,1700 #0 mL insulin glargine 100 unit/mL (3 20 unit (0.2 mL) subcut HS #0 mL 03/10/24 03/16/24 mL) subcutaneous pen (Lantus Solostar U-100 Insulin) ipratropium 20 mcg-albuterol 100 1 puff inhalation QID #0 grams 03/10/24 03/16/24 mcg/actuation mist for inhalation (Combivent Respimat) pantoprazole 40 mg tablet,delayed 40 mg PO BID #60 tabs 03/10/24 03/16/24 release (Protonix) potassium chloride 20 mEq oral 20 meq PO BIDWMEAL #0 ea 03/10/24 03/16/24 packet sucralfate 1 gram tablet 1 g PO AC & HS #0 tabs 03/10/24 03/16/24 bisacodyl 10 mg rectal suppository 10 mg LA DAILY PRN 03/16/24 03/16/24 (Gentle Laxative (bisacodyl)) Previous Rx's Medication Instructions Recorded Inhaler, Assist Devices [Pocket 1 ea miscellaneous DIRECTED ##0 03/10/24 Chamber] albuterol sulfate 90 mcg/actuation 2 puff inhalation Q4H PRN PRN #0 03/10/24 aerosol inhaler (Ventolin HFA) grams amiloride 5 mg tablet 5 mg PO DAILY #0 tabs 03/10/24 dextrose 40 % oral gel (Glutose-15) 15 g PO DIRECTED PRN #0 grams 03/10/24 diltiazem HCl 120 mg 120 mg PO DAILY #0 caps 03/10/24 capsule,extended release 24 hr enalapril maleate 5 mg tablet 10 mg (2 x 5 mg) PO DAILY #0 tabs 03/10/24 folic acid 1 mg tablet 5 mg (5 x 1 mg) PO DAILY #0 tabs 03/10/24 fosfomycin tromethamine 3 gram See Rx Instructions .Route 03/10/24 oral packet .COMPLEX #1 ea insulin aspart U-100 100 unit/mL 0 unit (0 mL) subcut 03/10/24 (3 mL) subcutaneous pen 0800,1200,1700 #0 mL insulin glargine 100 unit/mL (3 20 unit (0.2 mL) subcut HS #0 mL 03/10/24 mL) subcutaneous pen (Lantus Solostar U-100 Insulin) ipratropium 20 mcg-albuterol 100 1 puff inhalation QID #0 grams 03/10/24 mcg/actuation mist for inhalation (Combivent Respimat) pantoprazole 40 mg tablet,delayed 40 mg PO BID #60 tabs 03/10/24 release (Protonix) potassium chloride 20 mEq oral 20 meq PO BIDWMEAL #0 ea 03/10/24 packet sucralfate 1 gram tablet 1 g PO AC & HS #0 tabs 03/10/24 Allergies Allergy/AdvReac Type Severity Reaction Status Date / Time aspirin Allergy Mild Other (See Verified 03/16/24 18:52 Comment) metformin Allergy Unknown Unknown Verified 03/16/24 18:52 sulfamethoxazole Allergy Unknown Unknown Verified 03/16/24 18:52 [From Bactrim] trimethoprim [From Bactrim] Allergy Unknown Unknown Verified 03/16/24 18:52 General Stated Complaint: Abd Prob JOSHUA: 3 Exam Narrative Exam Narrative: Review of Systems: All systems reviewed & are unremarkable except as noted in HPI and below Obese, no acute distress NCAT Prior central line suture in the right neck noted PERRL, normal conjunctiva RRR, no murmur Unlabored respiratory effort, diminished breath sounds secondary to body habitus, no hypoxia, increased work of breathing Nondistended abdomen , bruising noted to the left lower quadrant likely secondary to anticoagulant administration, there is some nonlocalizable tenderness, grimacing on examination Bilateral lower extremity with pitting edema, chronic venous stasis changes, there is central caceres discoloration, no weeping or open wounds Right-sided hemiparesis, difficulty with answering questions speech difficult to understand Course Vital Signs Vital signs: Vital Signs Temperature 36 C L 03/16/24 18:16 Pulse 102 H 03/16/24 18:16 Respiratory Rate 20 03/16/24 18:16 Blood Pressure 90/55 L 03/16/24 18:16 Pulse Oximetry 94 03/16/24 18:16 Temperature 36.1 C L 03/16/24 21:13 Temperature Source Tympanic 03/16/24 20:39 Pulse 88 03/16/24 21:13 Pulse 89 03/16/24 20:31 Respiratory Rate 20 03/16/24 21:13 Respiratory Effort Normal 03/16/24 18:41 Blood Pressure 99/49 L 03/16/24 21:13 Blood Pressure Mean 51 03/16/24 20:31 Blood Pressure Position Supine 03/16/24 18:24 Pulse Oximetry 100 03/16/24 21:13 Oxygen Delivery Method Nasal Cannula 03/16/24 21:13 Oxygen Flow Rate 2 03/16/24 21:13 Pain Level 8 03/16/24 18:24 Lab/Test Results Lab/Test Results: Laboratory Tests Range/Units 03/16/24 03/16/24 18:32 18:57 WBC (4.4-10.8) 10^3/uL 12.17 H RBC (4.36-5.78) 10^6/uL 1.87 L Hgb (13.5-17.5) g/dL 5.6 L* Hct (40.0-50.0) % 18.8 L* MCV (80-95) fL 101 H MCH (27.0-33.0) pg 29.9 MCHC (32.0-36.0) % 29.8 L RDW (11.8-14.1) % 20.0 H Plt Count (130-400) 10^3/uL 294 MPV (8.0-11.0) fL 9.9 Immature Gran % % 1.6 Neutrophils % % 75.9 Lymphocytes % % 14.0 Monocytes % % 7.7 Eosinophils % % 0.7 Basophils % % 0.1 Nucleated RBC % (0.0-0.3) % 0.4 H Absolute Neutrophils (1.2-6.7) 10^3/uL 9.24 H Absolute Lymphocytes (1.2-3.4) 10^3/uL 1.70 Absolute Monocytes (0.1-0.8) 10^3/uL 0.94 H Absolute Eosinophils (0.0-0.7) 10^3/uL 0.09 Absolute Basophils (0.0-0.2) 10^3/uL 0.01 PT (9.1-11.1) sec 12.1 H INR (0.9-1.1) 1.2 H VBG Lactate (0.6-1.4) mmol/L 1.5 H Sodium (136-145) mmol/L 135 L Potassium (3.5-5.1) mmol/L 6.8 H* Chloride (98-107) mmol/L 106 Carbon Dioxide (21.0-32.0) mmol/L 17.7 L Anion Gap (3-11) mmol/L 11.3 H BUN (7-18) mg/dL 64 H Creatinine (0.70-1.30) mg/dL 1.9 H Est GFR (CKD-EPI 2020) (mL/min/1.73m2) 38.42 Glucose (74-106) mg/dL 137 H Calcium (8.5-10.1) mg/dL 8.6 Magnesium (1.8-2.4) mg/dL 1.8 Total Bilirubin (0.2-1.0) mg/dL 0.3 AST (15-37) U/L 13 L ALT (16-63) U/L 18 Alkaline Phosphatase (46-116) U/L 60 Troponin I (< or =60) ng/L < 50 Total Protein (6.4-8.2) g/dL 6.0 L Albumin (3.4-5.0) g/dL 2.0 L Lipase (16-77) U/L 45 Procalcitonin ng/mL 0.3 ABO/Rh O Positive Antibody Screen NEGATIVE Crossmatch See Detail Procedures Central Line Placement Right IJ: Time Out Performed: Yes Patient Placed on Monitor/Pulse Ox: Yes MD Prep: mask and gloves Central Line Prep: Chlorhexidine scrub Local Anesthetic: Lidocaine 1% Amount of anesthesia used (mL): 10 Ultrasound Used for Placement: Yes Central Line Lumen Inserted: triple Post Procedure: good blood return, all ports aspirated, flushed, capped and sutured in place with 3-0 nylon Post Procedure X-Ray: tip of catheter in good position Patient Tolerated Procedure: well and no complications Complications: none Medical Decision Making Emergent evaluation of abdominal pain. History is limited from the nursing facility and the patient is not able to provide any additional history at this time. On initial evaluation is that he is noted to be hypotensive and slightly pale. He does have some nonlocalized lower abdominal tenderness. I reviewed his medical record and noted recent hospitalization for significant illness requiring ICU stay. There was concern at that time for possible GI bleed, but patient was too unstable for scope. Plan for labs, CT imaging and close monitoring. 1900 Lab work reviewed. There is significant anemia. Hemoglobin 5.6 and 18.8. Mild elevation in white blood cell count of 12. Platelet count within normal limits. I reviewed the medical record and noted that this is a significant drop from his recent hospitalization. Concern for possible GI bleeding. IV Protonix ordered. His CT scan of his abdomen was changed to GI bleeding protocol to evaluate for acute bleed. I am unable to perform rectal examination secondary to the patient's body habitus, however there is no evidence of aggressive bright red blood per rectum and no report of any melena from the nursing facility. Remaining lab work is also concerning renal insufficiency with elevated potassium of 6.8. There are not any acute EKG changes. Shift medication has been ordered. Creatinine slightly up with BUN also elevated. CO2 low at 17. He was given bicarb. He has had previous renal insufficiency issues during his last hospitalization as well. At this time he does not meet emergent dialysis criteria. His procalcitonin is negative, I have a low suspicion for an infectious etiology causing his symptoms today. I discussed with the Sister Florence who is his medical guardian power of contract attorney. She was provided verbal consent for the central line and for the blood transfusion. I placed a central line due to poor peripheral access. The right upper extremity seems to have significant clot burden and nursing staff was unable to place IV. The central line placement was uncomplicated. Blood resuscitation initiated and the patient's blood pressure improved significantly with blood. He has not had any signs of bleeding in the emergency department. I discussed with the hospitalist for admission, he agrees to take the patient. He requests a surgical consult. I updated general surgery about the patient admission and they will see the patient tomorrow. The patient's sister is available by phone, and will come to the hospital tomorrow. Medical Records Medical records reviewed: Yes I reviewed the patient's medical records. Lab Data Lab results reviewed: Yes I reviewed the patient's lab results. Quality:[facility] Related Social Needs: No Data to Display Critical Care Time Critical Care Time Critical Care Time: Yes Total Critical Care Time: 38 Attestation: CRITICAL CARE Upon my evaluation, this patient had a high probability of imminent or life- threatening deterioration due to acute anemia, renal failure which required my direct attention, intervention, and personal management. I have personally provided 38 minutes of critical care time exclusive of time spent on separately billable procedures. Time includes review of laboratory data, radiology results, discussion with consultants, and monitoring for potential decompensation. Interventions were performed as documented above [facility] All Active Problems (Updated 03/16/24 @ 21:40 by Joel Choe MD) Acute hyperkalemia (Acute) Acute right hemiparesis (Acute) Acute CVA (cerebrovascular accident) (Acute) Acute renal insufficiency (Acute) Anemia (Chronic) Atrial fibrillation with rapid ventricular response (Acute) Goals of care, counseling/discussion (Acute) Gastrointestinal hemorrhage with melena (Acute) UTI (urinary tract infection) (Acute) Hyperglycemia (Acute) Anemia (Chronic) Upper GI bleeding (Acute) Leukocytosis (Acute) Pressure ulcer (Acute) Medical History Venous stasis dermatitis of both lower extremities Benign prostatic hyperplasia Hypertension Hemiparesis affecting right side as late effect of stroke Type 2 diabetes mellitus Social History Smoking/Tobacco Use Status: Never Smoking risk assessment performed?: Yes Alcohol Intake: never Substance use type: does not use Housing: assisted living facility Additional Social history: Right hemiparesis for many years after stroke in 30s, but was able to drive and live alone in [place] until January hospitalization
--- NOTE | 2024-03-16 21:20 | DI.VRAD_ITS ---
PROCEDURE INFORMATION: Exam: XR Chest Exam date and time: 03/16/2024 8:36 PM Age: 64 years old Clinical indication: Device placement; Picc TECHNIQUE: Imaging protocol: Radiologic exam of the chest. Views: 1 view. COMPARISON: CR XR PORTABLE CHEST AP POST LINE 03/02/2024 4:18 PM FINDINGS: Tubes, catheters and devices: Right IJ central venous catheter in good position with the tip in the superior vena cava. No other central venous catheter is visualized. Lungs: Lung volumes are low with crowding of the pulmonary vasculature and stable mild diffuse pulmonary vascular prominence. Mild focal infiltrate versus atelectasis in the right lung base and left apex. Pleural spaces: Unremarkable. No pleural effusion. No pneumothorax. Heart/Mediastinum: Unremarkable. No cardiomegaly. Bones/joints: Unremarkable. IMPRESSION: 1. Right IJ central line in good position. 2. Hypoaeration changes with mild right basilar and left apical infiltrate versus atelectasis. Dictated and Authenticated by: Thierry Shankar MD. Ordering:EZRA Adame MD
--- NOTE | 2024-03-16 21:40 | SCONE_ITS ---
Date of service: 03/16/24 Time of Service: 21:41 Assessment and Plan Assessment and plan (1) Gastrointestinal hemorrhage with melena: Status: Acute Assessment and plan: 64 yo man with acute on chronic anemia. Slightly worse than discharge a week ago. Reportedly HD stable. The patient has not had any visible GI bleeding(or melena) in the ED and reportedly no GI bleeding at his facility. Hgb has drifted from 7.8 to 5.6 over a week. Clinically, by history and by labwork, there is unlikely active bleeding of significance(such that could be intervened upon). Stress/erosive gastritis or PUD is probably the most likely explanation for the drifting HGB, but certainly other issues are contributing to his chronic anemia at baseline. With all of his recent pulmonary issues(on top of his baseline morbidities), he really should not have procedures unless absolutely necessary and in an effort to save his life. Outpatient EGD could be considered down the road after a detailed discussion on goals of care with this patient and whether or not he wants to take that risk with little upside or value considering the circumstances. Such a procedure should probably be delayed at least 6 to 8 weeks following his respiratory issues completely resolving. Consult anesthesia to decide on ideal timing. Overall recommendation: Goals of care discussion to guide future care decision- making and strategy. Emergent or urgent surgical intervention not indicated at this time. History of Present Illness Narrative: Asked to consult on GI bleeding by ED physician/hospitalist. History is per chart and ED physician over phone. Patient reportedly sent from [facility] because of abdominal pain. In ED, allegedly does not have abdominal pain. Staff and patient deny seeing blood in stool or vomiting any blood. Patient was discharged recently with Hgb in 7-range and presents today with Hgb in the 5-range. Patient is DNR/DNI and reportedly has neuro and cognitive deficits from stroke. Many morbid conditions including BMI of 45. [facility] All Active Problems (Updated 03/16/24 @ 21:40 by Joel Choe MD) Acute hyperkalemia (Acute) Acute right hemiparesis (Acute) Acute CVA (cerebrovascular accident) (Acute) Acute renal insufficiency (Acute) Anemia (Chronic) Atrial fibrillation with rapid ventricular response (Acute) Goals of care, counseling/discussion (Acute) Gastrointestinal hemorrhage with melena (Acute) UTI (urinary tract infection) (Acute) Hyperglycemia (Acute) Anemia (Chronic) Upper GI bleeding (Acute) Leukocytosis (Acute) Pressure ulcer (Acute) Medical History Venous stasis dermatitis of both lower extremities Benign prostatic hyperplasia Hypertension Hemiparesis affecting right side as late effect of stroke Type 2 diabetes mellitus Social History Smoking/Tobacco Use Status: Never Smoking risk assessment performed?: Yes Alcohol Intake: never Substance use type: does not use Housing: assisted living facility Additional Social history: Right hemiparesis for many years after stroke in 30s, but was able to drive and live alone in [place] until January hospitalization Results Last Vital Signs Temp 97.0 F L 03/16/24 21:13 Pulse 80 03/16/24 21:31 Resp 17 03/16/24 21:31 BP 102/38 L 03/16/24 21:31 Pulse Ox 98 03/16/24 21:31 Labs 03/16/24 18:32 03/16/24 18:32 Labs: Laboratory Results - last 24 hr 03/16/24 03/16/24 18:32 18:57 WBC 12.17 H RBC 1.87 L Hgb 5.6 L* Hct 18.8 L* MCV 101 H MCH 29.9 MCHC 29.8 L RDW 20.0 H Plt Count 294 MPV 9.9 Immature Gran % 1.6 Neutrophils % 75.9 Lymphocytes % 14.0 Monocytes % 7.7 Eosinophils % 0.7 Basophils % 0.1 Nucleated RBC % 0.4 H Absolute Neutrophils 9.24 H Absolute Lymphocytes 1.70 Absolute Monocytes 0.94 H Absolute Eosinophils 0.09 Absolute Basophils 0.01 PT 12.1 H INR 1.2 H VBG Lactate 1.5 H Sodium 135 L Potassium 6.8 H* Chloride 106 Carbon Dioxide 17.7 L Anion Gap 11.3 H BUN 64 H Creatinine 1.9 H Est GFR (CKD-EPI 2020) 38.42 Glucose 137 H Calcium 8.6 Magnesium 1.8 Total Bilirubin 0.3 AST 13 L ALT 18 Alkaline Phosphatase 60 Troponin I < 50 Total Protein 6.0 L Albumin 2.0 L Lipase 45 Procalcitonin 0.3 ABO/Rh O Positive Antibody Screen NEGATIVE Crossmatch See Detail
--- NOTE | 2024-03-16 22:35 | HPE_ITS ---
Date of service: 03/16/24 Time of Service: 22:35 Assessment and Plan Assessment and plan (1) Anemia: Status: Acute Assessment and plan: Multifactorial cause for his anemia including folate deficiency as well as posthemorrhagic anemia. Patient is dropped 2 g of hemoglobin since his discharge a week ago. Although we received no history from the retirement that he was having acute GI bleeding I suspect that he has had some ongoing bleeding in spite of being treated with a PPI and Carafate and placed on folate supplementation. Will monitor serial H&H's transfuse 2 units of packed red cells with goal of hemoglobin of 8 g or higher. Will request surgical consultation to evaluate for an EGD looking for source of recent GI bleeding. Critical care time spent interviewing and examining the patient, reviewing studies, discussing case with patient's nurse and consulting physicians was 60 minutes Qualifiers: Anemia type: other cause Other causes of anemia: acute posthemorrhagic Qualified Code(s): D62 - Acute posthemorrhagic anemia (2) Gastrointestinal hemorrhage with melena: Status: Acute (3) Acute hyperkalemia: Status: Acute Assessment and plan: Patient had severe hyperkalemia last admission when he had acute kidney injury ordered treatment of his hyperkalemia. Post resuscitation he had hypokalemia and required resumption of his Amoride and potassium supplementation. At this point I do not think potassium sparing diuretics should be resumed particularly in light of his need for an DAREK inhibitor or an ARB. Potassium is already started to come down I will give him a dose of Lokelma tonight and recheck his electrolytes in the morning. (4) Acute renal insufficiency: Status: Acute Assessment and plan: Acute on chronic renal insufficiency. His kidney function did recover completely last admission I anticipate once his volume status been restored his renal function should improve. I have requested Radford catheter be placed so we can carefully monitor his urine output as we resuscitate him. (5) Type 2 diabetes mellitus: Qualifiers: Diabetes mellitus [facility] insulin use: with [facility] use Diabetes mellitus complication status: with kidney complications Chronic kidney disease stage: unspecified stage (6) Pressure ulcer: Status: Acute Assessment and plan: Wound care consult Qualifiers: Pressure injury location: sacral region (7) DVT prophylaxis: Status: Acute Assessment and plan: SCDs, as patient is not a candidate for chemoprophylaxis in light of recent GI bleeding History of Present Illness History of Present Illness Chief Complaint: Anemia, hypotension Narrative: 64-year-old male with type 2 diabetes mellitus, morbid obesity, 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 He was also recently diagnosed with COVID. During that hospitalization he required vasopressors IV fluid resuscitation and treatment for his COVID with dexamethasone and remdesivir. He had acute kidney injury for which she recovered from it eventually was weaned off of vasopressors and was treated with broad-spectrum antibiotics for his pneumonia and UTI including Zosyn and vancomycin but then was de-escalated to Zosyn alone for coverage of Klebsiella pneumonia a which had multiple drug resistances. His hospital course was also complicated by GI bleeding with melanotic stools. He was found to have a folate deficiency and was started on folic acid supplements. His hospital course was also complicated by rapid atrial fibrillation which was treated with IV diltiazem and then converted to normal sinus rhythm and was placed on long- acting oral diltiazem. Echocardiogram showed hyperdynamic LV mild RV dilatation but normal RV systolic function moderate aortic stenosis. GI bleeding was treated with Protonix and Carafate. He did not receive endoscopy because he was too unstable from his sepsis. Hemoglobin fluctuated between 9 and 7.8 g size hospital course. Valentina he was admitted from [facility] reportedly because of lower abdominal pain although the patient himself denies any abdominal pain. He was found to be hypotensive and tachycardic with a blood pressure 90/55 heart rate 102 he was afebrile. Oxygen saturation was 94% on room air although he allegedly was mildly hypoxic at the retirement with an O2 saturation of 88%. Subsequent workup here found him to be severely anemic hemoglobin was down to 5.6 g hematocrit 18% with a mild leukocytosis of 12,000 with normal platelet count 294,000. Chemistry panel showed hyperkalemia with a potassium of 6.8 as well as azotemia with a BUN of 64 creatinine 1.9. Lipase is normal at 45 transaminases and alkaline phosphatase and total bilirubin were all normal. Procalcitonin was 0.3. Patient's hyperkalemia was treated with sodium bicarbonate insulin and dextrose and his potassium came down to 5.9. 2 units of packed red cells was ordered he was admitted to the intensive care unit for close hemodynamic monitoring as well as further transfusions and monitoring of his electrolytes and H&H. Patient denies any fevers or rigors he denies any shortness of breath or chest pain or abdominal pain. He has not noticed any melena or hematochezia. However it should be noted that he is not a reliable historian. He has some expressive aphasia and has trouble completing his sentences. PFSH All Active Problems (Updated 03/17/24 @ 00:48 by Aneudy Gill MD) DVT prophylaxis (Acute) Acute hyperkalemia (Acute) Acute right hemiparesis (Acute) Acute CVA (cerebrovascular accident) (Acute) Acute renal insufficiency (Acute) Anemia (Acute) Goals of care, counseling/discussion (Acute) Gastrointestinal hemorrhage with melena (Acute) UTI (urinary tract infection) (Acute) Hyperglycemia (Acute) Anemia (Chronic) Upper GI bleeding (Acute) Leukocytosis (Acute) Pressure ulcer (Acute) Medical History (Updated 03/17/24 @ 00:48 by Aneudy Gill MD) Atrial fibrillation with rapid ventricular response Venous stasis dermatitis of both lower extremities Benign prostatic hyperplasia Hypertension Hemiparesis affecting right side as late effect of stroke Type 2 diabetes mellitus Social History Smoking/Tobacco Use Status: Never Smoking risk assessment performed?: Yes Alcohol Intake: never Substance use type: does not use Housing: assisted living facility Additional Social history: Right hemiparesis for many years after stroke in 30s, but was able to drive and live alone in [place] until January Meds Allergies and Home Medications Allergies Allergy/AdvReac Type Severity Reaction Status Date / Time aspirin Allergy Mild Other (See Verified 03/16/24 18:52 Comment) metformin Allergy Unknown Unknown Verified 03/16/24 18:52 sulfamethoxazole Allergy Unknown Unknown Verified 03/16/24 18:52 [From Bactrim] trimethoprim [From Bactrim] Allergy Unknown Unknown Verified 03/16/24 18:52 Home Medications Medication Instructions Recorded Confirmed Type acetaminophen 325 mg capsule 650 mg PO Q4H PRN 03/02/24 03/16/24 History simvastatin 20 mg tablet 20 mg PO DAILY 03/02/24 03/16/24 History tamsulosin 0.4 mg capsule 0.4 mg PO DAILY 03/02/24 03/16/24 History triamcinolone acetonide 0.1 % 1 applic topical BID 03/02/24 03/16/24 History topical cream Inhaler, Assist Devices [Pocket 1 ea miscellaneous DIRECTED ##0 03/10/24 03/16/24 Rx Chamber] albuterol sulfate 90 mcg/actuation 2 puff inhalation Q4H PRN PRN #0 03/10/24 03/16/24 Rx aerosol inhaler (Ventolin HFA) grams amiloride 5 mg tablet 5 mg PO DAILY #0 tabs 03/10/24 03/16/24 Rx dextrose 40 % oral gel (Glutose-15) 15 g PO DIRECTED PRN #0 grams 03/10/24 03/16/24 Rx diltiazem HCl 120 mg 120 mg PO DAILY #0 caps 03/10/24 03/16/24 Rx capsule,extended release 24 hr enalapril maleate 5 mg tablet 10 mg (2 x 5 mg) PO DAILY #0 tabs 03/10/24 03/16/24 Rx folic acid 1 mg tablet 5 mg (5 x 1 mg) PO DAILY #0 tabs 03/10/24 03/16/24 Rx fosfomycin tromethamine 3 gram See Rx Instructions .Route 03/10/24 03/16/24 Rx oral packet .COMPLEX #1 ea insulin aspart U-100 100 unit/mL 0 unit (0 mL) subcut 03/10/24 03/16/24 Rx (3 mL) subcutaneous pen 0800,1200,1700 #0 mL insulin glargine 100 unit/mL (3 20 unit (0.2 mL) subcut HS #0 mL 03/10/24 03/16/24 Rx mL) subcutaneous pen (Lantus Solostar U-100 Insulin) ipratropium 20 mcg-albuterol 100 1 puff inhalation QID #0 grams 03/10/24 03/16/24 Rx mcg/actuation mist for inhalation (Combivent Respimat) pantoprazole 40 mg tablet,delayed 40 mg PO BID #60 tabs 03/10/24 03/16/24 Rx release (Protonix) potassium chloride 20 mEq oral 20 meq PO BIDWMEAL #0 ea 03/10/24 03/16/24 Rx packet sucralfate 1 gram tablet 1 g PO AC & HS #0 tabs 03/10/24 03/16/24 Rx bisacodyl 10 mg rectal suppository 10 mg NH DAILY PRN 03/16/24 03/16/24 History (Gentle Laxative (bisacodyl)) Exam Narrative Exam Narrative: Morbidly obese male lying in bed appears to be in no obvious distress denies any pain he is nondiaphoretic seems to be alert he is oriented to person and place and that he knows he is in the hospital although he cannot tell me the name of the hospital. He seemed to recognize me from his last hospitalization. HEENT pale conjunctiva no icterus full extraocular motion intact pupils equally round and reactive oropharynx noninjected Neck supple no JVD normal carotid pulses Lungs are clear to auscultation Heart is regular rate and rhythm with a grade 2/6 systolic murmur over the aortic outflow tract but also heard across the precordium with no palpable thrill heave or gallop Abdomen obese soft and nontender Legs bilateral edema 3+ from the knees down to his feet he has some tenderness particular over the left distal thigh did not see any redness or increased warmth there is no cyanosis although he has chronic venous stasis discoloration of his legs Results Labs 03/16/24 18:32 03/16/24 22:55 Labs: Laboratory Results - last 24 hr 03/16/24 03/16/24 18:32 18:57 WBC 12.17 H RBC 1.87 L Hgb 5.6 L* Hct 18.8 L* MCV 101 H MCH 29.9 MCHC 29.8 L RDW 20.0 H Plt Count 294 MPV 9.9 Immature Gran % 1.6 Neutrophils % 75.9 Lymphocytes % 14.0 Monocytes % 7.7 Eosinophils % 0.7 Basophils % 0.1 Nucleated RBC % 0.4 H Absolute Neutrophils 9.24 H Absolute Lymphocytes 1.70 Absolute Monocytes 0.94 H Absolute Eosinophils 0.09 Absolute Basophils 0.01 PT 12.1 H INR 1.2 H VBG Lactate 1.5 H Sodium 135 L Potassium 6.8 H* Chloride 106 Carbon Dioxide 17.7 L Anion Gap 11.3 H BUN 64 H Creatinine 1.9 H Est GFR (CKD-EPI 2020) 38.42 Glucose 137 H Calcium 8.6 Magnesium 1.8 Total Bilirubin 0.3 AST 13 L ALT 18 Alkaline Phosphatase 60 Troponin I < 50 Total Protein 6.0 L Albumin 2.0 L Lipase 45 Procalcitonin 0.3 ABO/Rh O Positive Antibody Screen NEGATIVE Crossmatch See Detail Last Vital Signs Temp 36.1 C L 03/16/24 21:13 Pulse 84 03/16/24 22:30 Resp 17 03/16/24 22:31 BP 88/45 L 03/16/24 22:30 Pulse Ox 99 03/16/24 22:31 Time Spent Time spent with Patient: 55-74 minutes Time was spent: preparing to see the patient(eg.review tests), ordering medications,tests, procedures, referring, communicating with other health wound care specialist, indepentently interpreting results, counseling the patient and care coordination
[2024-03-16 23:08] LABS: Lactate 1.7 mmol/L (0.6-1.4)
[2024-03-16 23:18] LABS: Potassium 5.9 mmol/L (3.5-5.1)
[2024-03-16 23:27] LABS: MRSA PCR Negative (Negative)
[2024-03-17] VITALS (113 sets, daily range): BP systolic 80–141; BP diastolic 38–88; PULSE 59–88; RESP 11–32; TEMP 36.4–37.5; O2SAT 84–100
[2024-03-17] MEDS: Lidocaine 2% Jelly 6 ML SYR TP (00:01)
[2024-03-17 00:08] LABS: Bilirubin Negative (Negative); Blood Trace-intact (Negative); Clarity Clear (Clear); Glucose Negative (Negative); Ketones Negative (Negative); Leukocyte Esterase Trace (Negative); Nitrite Negative (Negative); Urobilinogen 0.2 mg/dL (Up to 0.2)
[2024-03-17 00:11] LABS: Bacteria Few HPF (Negative); Crystals Negative HPF (Negative); Epithelial Cells Rare HPF (Negative); Mucus Negative (Negative); WBC 20-50 HPF (0-5)
[2024-03-17 00:12] LABS: C & S Indicated? Yes; Casts 3-5 Hyaline LPF (Negative)
[2024-03-17] MEDS: Sucralfate 1 GM TAB PO ×5 (00:12→21:31)
[2024-03-17] MEDS: Sodium Zirconium Cyclosilicate 10 GM PKT PO ×2 (00:12→06:50)
[2024-03-17 03:02] LABS: HCT 22.6 % (40.0-50.0); HGB 7.2 g/dL (13.5-17.5)
[2024-03-17] MEDS: Lactated Ringers 500 ML 1000 ML IV (03:09)
[2024-03-17] MEDS: Norepinephrine in D5W 8 MG/250 ML BAG 18.75 MG IV ×2 (03:16→16:55)
[2024-03-17] MEDS: IMIPENEM/CILASTATIN 500 MG in Normal Saline 100 ML 200 MG IVPB ×4 (03:31→19:40)
[2024-03-17] MEDS: Normal Saline 1,000 ML 100 ML IV ×2 (03:32→17:00)
[2024-03-17 05:36] LABS: Lactate 0.8 mmol/L (0.6-1.4)
[2024-03-17 05:39] LABS: Abs Immature Grans 0.21 10^3/uL (0.0-0.06); Absolute Basophil Count 0.01 10^3/uL (0.0-0.2); Absolute Eosinophil Count 0.16 10^3/uL (0.0-0.7); Absolute Lymphocyte Count 1.54 10^3/uL (1.2-3.4); Absolute Monocyte Count 0.93 10^3/uL (0.1-0.8); Absolute Neutrophil Count 7.37 10^3/uL (1.2-6.7); Basophils % 0.1 %; Eosinophils % 1.6 %; HCT 23.6 % (40.0-50.0); HGB 7.5 g/dL (13.5-17.5); Immature Grans % 2.1 %; Lymphocytes % 15.1 %; MCH 30.2 pg (27.0-33.0); MCHC 31.8 % (32.0-36.0); MPV 9.4 fL (8.0-11.0); Monocytes % 9.1 %; Nucleated RBC 0.5 % (0.0-0.3); Platelet Count 226 10^3/uL (130-400); RBC 2.48 10^6/uL (4.36-5.78); RDW 19.8 % (11.8-14.1); RDW-SD 62.4 fL; WBC 10.22 10^3/uL (4.4-10.8)
[2024-03-17 05:40] LABS: MCV 95 fL (80-95)
[2024-03-17 06:03] LABS: ALT 15 U/L (16-63); AST 11 U/L (15-37); Albumin 1.9 g/dL (3.4-5.0); Alkaline Phosphatase 57 U/L (46-116); Anion Gap 7.8 mmol/L (3-11); BUN 56 mg/dL (7-18); Bilirubin, Total 0.5 mg/dL (0.2-1.0); CO2 18.2 mmol/L (21.0-32.0); CREATININE 1.4 mg/dL (0.70-1.30); Calcium 8.1 mg/dL (8.5-10.1); Chloride 108 mmol/L (98-107); Estimated GFR 55.43 (mL/min/1.73m2); Glucose 143 mg/dL (74-106); Potassium 5.7 mmol/L (3.5-5.1); Sodium 134 mmol/L (136-145); Total Protein 5.6 g/dL (6.4-8.2)
[2024-03-17] MEDS: Pantoprazole 40 MG VIAL IVP ×2 (06:12→18:34)
[2024-03-17] MEDS: Folic Acid 1 MG TAB 5 MG PO (08:36)
--- NOTE | 2024-03-17 09:19 | INITIAL_ITS ---
Date of service: 03/17/24 Time of Service: 09:19 Care Management Initial Assmt Initial Assessment Reason for Hospitalization: anemia Functional Status/Living Situation Patient Presentation: Luann was sitting up in bed visiting with his 2 sisters, Florence and Oralia, when CM met with him. He was polite but did not offer much conversation. Luann is currently residing at [facility] and was admitted for anemia. His H&H was 5.6 and 18.8 on admission. He received 2 units of blood but will not have a colonoscopy at this time as the risk may outweigh the benefit. He will likely be scheduled for an outpatient procedure in a few weeks. CM met privately with Florence, Luann's younger keya, at her request. She requested that Luann's daughter Natali not be allowed to visit Luann in the hospital. CM informed her that it would be up to Luann to decide and she stated she would discuss it with him. A Pallaitive Care consult will be requested for early next week at the family's request and with Luann'a approval. Town of Residence: [facility] Resides with: Other (SNF) Significant Other/Family: Local (Luann and his family live in [place]) Natural Supports: Florence Patel - sister Mom Susannah in [place] Employment Status: Disabled Instrumental Activities of Daily Living (ADLs): Requires support Medications Medication Management: No Issues/Barriers identified Advance Directives Advance Directives: Do you have an Advance Directive: N 03/16/24 22:00 AD On File at [facility]: N 01/27/24 07:19 Date Asked 03/02/24 03/02/24 15:37 AD Date Reviewed 03/16/24 03/16/24 22:00 COLST On File at [facility] COLST Date Scanned Code Status Resuscitation Status DNR/DNI Portal Pt does not currently have a portal and education provided: No Insurance Coverage/Financial Issues Insurance: Medicare Medicaid ACO Member: No Care Team Visit Care Team Role Provider Type Bright Finney Primary Care Provider NON-[facility] STAFF PHYSICIAN Mendez Razo MD Other Providers [facility] STAFF PHYSICIAN Joel Choe MD Emergency Provider [facility] STAFF PHYSICIAN Aneudy Gill MD Admit Provider [facility] STAFF PHYSICIAN Attending Provider Discharge Potential Discharge Needs: PCP F/U Appt Anticipated Barriers to Discharge: None Identified Patient/Family Education Needs: Review discharge instructions, discuss Ask Me T hree Transportation: Facility Transport Plan: Anticipate Luann will return to [facility] when medically cleared. He will follow up with facility providers and plan of care and transport with family. CM will follow and continue to support discharge planning needs. PFSH All Active Problems (Updated 03/17/24 @ 17:13 by Reyes Garibay DO) Acute blood loss anemia (Acute) DVT prophylaxis (Acute) Acute hyperkalemia (Acute) Acute right hemiparesis (Acute) Acute CVA (cerebrovascular accident) (Acute) Acute renal insufficiency (Acute) Anemia (Acute) Goals of care, counseling/discussion (Acute) Gastrointestinal hemorrhage with melena (Acute) UTI (urinary tract infection) (Acute) Hyperglycemia (Acute) Anemia (Chronic) Upper GI bleeding (Acute) Leukocytosis (Acute) Pressure ulcer (Acute) Medical History (Updated 03/17/24 @ 17:13 by Reyes Garibay DO) Atrial fibrillation with rapid ventricular response Venous stasis dermatitis of both lower extremities Benign prostatic hyperplasia Hypertension Hemiparesis affecting right side as late effect of stroke Type 2 diabetes mellitus Social History Smoking/Tobacco Use Status: Never Smoking risk assessment performed?: Yes Alcohol Intake: never Substance use type: does not use Housing: assisted living facility Additional Social history: Right hemiparesis for many years after stroke in 30s, but was able to drive and live alone in [place] until January hospitalization SDOH(Care Management) Screening Will the Patient Participate in the Screening?: Unable to obtain
[2024-03-17] MEDS: Normal Saline Flush 10 ML SYR IVP ×7 (09:25→20:51)
[2024-03-17] MEDS: Triamcinolone 0.1% CR 15 GM TUBE TP ×2 (11:46→20:53)
--- NOTE | 2024-03-17 13:09 | PGE_ITS ---
Date of Service Date of service: 03/17/24 Time of Service: 13:09 Assessment and Plan Assessment and plan (1) Anemia: Status: Acute Assessment and plan: -Multifactorial; folate deficiency and acute on chronic blood loss anemia due to upper GI bleed -Patient is dropped 2 g of hemoglobin since his discharge a week ago, and was given 2U PRBCs on admission - Although we received no history from the senior care that he was having acute GI bleeding I suspect that he has had some ongoing bleeding in spite of being treated with a PPI and Carafate and placed on folate supplementation. -AM Hb 7.5, repeat pending -will transfuse if PM Hb remains under 8 -surgical consultation apprecaited; risk outweight benefit of EGD due to recent severe respiratory illness, and given presentation of GI bleed, this is likely due to stress/erosive gastritis which an EGD would not serve any additional benefit -rec outpatient EGD in 6-8wks once respiratory issues have resolved though this should be discussed with anesthesia for exact recommended timing Qualifiers: Anemia type: other cause Other causes of anemia: acute posthemorrhagic Qualified Code(s): D62 - Acute posthemorrhagic anemia (2) Gastrointestinal hemorrhage with melena: Status: Acute Assessment and plan: -as noted above (3) Acute hyperkalemia: Status: Acute Assessment and plan: -Patient had severe hyperkalemia last admission when he had acute kidney injury ordered treatment of his hyperkalemia. -Post resuscitation he had hypokalemia and required resumption of his Amoride and potassium supplementation. -given recurrence of hyperkalemia spironolactone has been discontinued -K on admission 6.8, improved down to 5.7 this AM s/p IV fluids, insulin, glucose, and Lokelma -f/u repeat K (4) Acute renal insufficiency: Status: Acute Assessment and plan: -Acute on chronic renal insufficiency -Cr 1.9 on admission -improved to 1.4 on AM 6/7 -f/u repeat BMP (5) Type 2 diabetes mellitus: Assessment and plan: -continue home insulin regimen Qualifiers: Diabetes mellitus chcf insulin use: with termite control representative use Diabetes mellitus complication status: with kidney complications Chronic kidney disease stage: unspecified stage (6) Pressure ulcer: Status: Acute Assessment and plan: Wound care consult Qualifiers: Pressure injury location: sacral region (7) DVT prophylaxis: Status: Acute Assessment and plan: SCDs, as patient is not a candidate for chemoprophylaxis in light of recent GI bleeding Subjective Subjective Interval history since last seen: Patient states that he is feeling a little better and understands that his bleeding appears to have slowed down or possibly stopped. Otherwise he and his sisters (who are at bedside) have no complaints or concerns at this time. Exam Narrative Exam Narrative: Chronically ill obese appearing gentleman laying in bed in no acute distress, awake, alert, oriented to person and place and intermittently to situation, heart regular rate rhythm, lungs clear to auscultation bilaterally, abdomen obese, soft, nontender, nondistended, close 2 bilateral pitting edema of bilateral lower extremities to the knees Objective Last Vital Signs Temp 99.3 F 03/17/24 11:18 Pulse 76 03/17/24 12:02 Resp 22 03/17/24 12:02 BP 119/53 L 03/17/24 12:02 Pulse Ox 97 03/17/24 12:02 Laboratory Results - last 24 hr 03/16/24 03/16/24 03/16/24 18:32 18:57 22:13 WBC 12.17 H RBC 1.87 L Hgb 5.6 L* Hct 18.8 L* MCV 101 H MCH 29.9 MCHC 29.8 L RDW 20.0 H Plt Count 294 MPV 9.9 Immature Gran % 1.6 Neutrophils % 75.9 Lymphocytes % 14.0 Monocytes % 7.7 Eosinophils % 0.7 Basophils % 0.1 Nucleated RBC % 0.4 H Absolute Neutrophils 9.24 H Absolute Lymphocytes 1.70 Absolute Monocytes 0.94 H Absolute Eosinophils 0.09 Absolute Basophils 0.01 PT 12.1 H INR 1.2 H VBG Lactate 1.5 H Sodium 135 L Potassium 6.8 H* Chloride 106 Carbon Dioxide 17.7 L Anion Gap 11.3 H BUN 64 H Creatinine 1.9 H Est GFR (CKD-EPI 2020) 38.42 Glucose 137 H Calcium 8.6 Magnesium 1.8 Total Bilirubin 0.3 AST 13 L ALT 18 Alkaline Phosphatase 60 Troponin I < 50 Total Protein 6.0 L Albumin 2.0 L Lipase 45 Procalcitonin 0.3 Urine Color Urine Clarity Urine pH Ur Specific [place] Urine Protein Urine Ketones Urine Blood Urine Nitrite Urine Bilirubin Urine Urobilinogen Ur Leukocyte Esterase Urine RBC Urine WBC Ur Epithelial Cells Urine Crystals Urine Bacteria Urine Casts Urine Mucus Ur Culture Indicated? Urine Glucose MRSA (TEM-PCR) Negative ABO/Rh O Positive Antibody Screen NEGATIVE Crossmatch See Detail 03/16/24 03/16/24 03/17/24 22:55 23:50 02:56 WBC RBC Hgb 7.2 L Hct 22.6 L MCV MCH MCHC RDW Plt Count MPV Immature Gran % Neutrophils % Lymphocytes % Monocytes % Eosinophils % Basophils % Nucleated RBC % Absolute Neutrophils Absolute Lymphocytes Absolute Monocytes Absolute Eosinophils Absolute Basophils PT INR VBG Lactate 1.7 H Sodium Potassium 5.9 H Chloride Carbon Dioxide Anion Gap BUN Creatinine Est GFR (CKD-EPI 2020) Glucose Calcium Magnesium Total Bilirubin AST ALT Alkaline Phosphatase Troponin I Total Protein Albumin Lipase Procalcitonin Urine Color Yellow Urine Clarity Clear Urine pH 5.0 Ur Specific [place] 1.010 Urine Protein Trace Urine Ketones Negative Urine Blood Trace-intact H Urine Nitrite Negative Urine Bilirubin Negative Urine Urobilinogen 0.2 Ur Leukocyte Esterase Trace H Urine RBC 3-5 H Urine WBC 20-50 H Ur Epithelial Cells Rare Urine Crystals Negative Urine Bacteria Few Urine Casts 3-5 Hyaline Urine Mucus Negative Ur Culture Indicated? Yes Urine Glucose Negative MRSA (TEM-PCR) ABO/Rh Antibody Screen Crossmatch 03/17/24 05:30 WBC 10.22 RBC 2.48 L Hgb 7.5 L Hct 23.6 L MCV 95 D MCH 30.2 MCHC 31.8 L RDW 19.8 H Plt Count 226 MPV 9.4 Immature Gran % 2.1 Neutrophils % 72.0 Lymphocytes % 15.1 Monocytes % 9.1 Eosinophils % 1.6 Basophils % 0.1 Nucleated RBC % 0.5 H Absolute Neutrophils 7.37 H Absolute Lymphocytes 1.54 Absolute Monocytes 0.93 H Absolute Eosinophils 0.16 Absolute Basophils 0.01 PT INR VBG Lactate 0.8 Sodium 134 L Potassium 5.7 H Chloride 108 H Carbon Dioxide 18.2 L Anion Gap 7.8 BUN 56 H Creatinine 1.4 H Est GFR (CKD-EPI 2020) 55.43 Glucose 143 H Calcium 8.1 L Magnesium Total Bilirubin 0.5 AST 11 L ALT 15 L Alkaline Phosphatase 57 Troponin I Total Protein 5.6 L Albumin 1.9 L Lipase Procalcitonin Urine Color Urine Clarity Urine pH Ur Specific [place] Urine Protein Urine Ketones Urine Blood Urine Nitrite Urine Bilirubin Urine Urobilinogen Ur Leukocyte Esterase Urine RBC Urine WBC Ur Epithelial Cells Urine Crystals Urine Bacteria Urine Casts Urine Mucus Ur Culture Indicated? Urine Glucose MRSA (TEM-PCR) ABO/Rh Antibody Screen Crossmatch Time Spent with Patient Time Spent with Patient: >50 minutes Time was spent: preparing to see the patient(eg.review tests), obtaining and/or reviewing separately otained hiistory, ordering medications,tests, procedures, referring, communicating with other health child day care provider, indepentently interpreting results, counseling the patient and care coordination
[2024-03-17 13:24] LABS: HCT 23.3 % (40.0-50.0); HGB 7.2 g/dL (13.5-17.5); MCH 29.5 pg (27.0-33.0); MCHC 30.9 % (32.0-36.0); MCV 96 fL (80-95); MPV 9.1 fL (8.0-11.0); Platelet Count 230 10^3/uL (130-400); RBC 2.44 10^6/uL (4.36-5.78); RDW 20.1 % (11.8-14.1); RDW-SD 65.5 fL; WBC 8.66 10^3/uL (4.4-10.8)
[2024-03-17 13:33] LABS: Anion Gap 11.1 mmol/L (3-11); BUN 43 mg/dL (7-18); CO2 17.9 mmol/L (21.0-32.0); CREATININE 1.1 mg/dL (0.70-1.30); Calcium 8.4 mg/dL (8.5-10.1); Chloride 110 mmol/L (98-107); Estimated GFR 74.04 (mL/min/1.73m2); Glucose 156 mg/dL (74-106); Potassium 4.9 mmol/L (3.5-5.1); Sodium 139 mmol/L (136-145)
[2024-03-17 13:46] LABS: Vancomycin, Random 28.5 ug/mL
--- NOTE | 2024-03-17 14:41 | CHAPLAIN ---
Luann was hear about two weeks ago. He was in the ICU and seriously ill. Then rebounded, went to Med/Surg and back to . H&R. He is originally from [place] and hopes to get back there, where he lives in an apartment building and knows many of the people there. Luann's two sisters are with him today. Luann agreed to a Palliative Consult for Wednesday and his sisters thought that would be a good idea as well. One sister talked about their parents being in [facility] and said Luann isn't ready to meet them yet, although it was close last time. Luann is pleasant. He didn't speak as much this visit as he during previous visits. He had a stroke in his 30s and is not very mobile and his speech can be slow and repetitive, but not always. His sister said he really like the prayer shawl we gave him last time he was here.
[2024-03-17] MEDS: VANCOMYCIN/WATER (PEG) 1.25 GM/250 ML BAG IV (16:13)
--- NOTE | 2024-03-17 17:03 | PGE_ITS ---
Date of Service Date of service: 03/17/24 Time of Service: 12:00 Assessment and Plan Assessment and plan (1) Acute blood loss anemia: Status: Acute Assessment and plan: (a) General consensus has been that the patient is poor candidate for intervention. (b) Continues on Norepi drip for hypotension. (c) Probably not bleeding enough for a tagged red cell bleeding scan to be accurate. His GI transit is likely slow secondary to DM. However, if bleeding enough to blush on a mesenteric angiogram, then coil embolization by interventional radiologist could be a game changer. (d) I do not believe either a tagged red cell nuclear scan or mesenteric angiography are available here at [facility]; patient would have to go to a facility that offers these interventions. Reportedly, patient's family have previously been reluctant to have patient transferred elsewhere. (e) Continue Norepi, continue monitoring of H/H, and monitor for acute arterial bleeding. (f) Patient denies nausea and/or vomiting. Source of blood loss is unknown. If upper GI, could drop an NG and if blood, could do cool water lavage. If no blood, then NG could simply be removed. If source is small bowel, patient would need mesenteric angiogram vs small bowel capsule endoscopy. Again, these are not available here. Following. Reyes Garibay D.O. Subjective Subjective Interval history since last seen: Patient seen and examined on rounds today covering for Dr. Razo. Case discus sed with Dr. Razo at signout this morning, as well as the case being discussed with Dr. Wells/ Hospitalist. This 64y/o male has an extensive medical history, well outlined in the Medical Record. He has had longstanding blood loss anemia. He was here last month with loose black stools, [facility], and now re-admitted with same. Hgb 5.6 --> 7.5 after two units of PRBC's. He presently has no ongoing acute GI hemorrhage, there is no bright red blood to be seen. However, he has been hypotensive and presently has SBP of 102 while on 10mcg/min of Norepi. Exam Const Other: Obese, does not appear very healthy resting in ICU bed. Patient is conversational, but does have obvious consequences of history of stroke. No acute distress, but remains hypotensive. Eyes Other: Non-icteric. Neck Other: Thick, but supple neck Resp Other: No tachypnea GI Other: Abdomen is protuberant, but soft, non-tender, Patient denies any abdominal pain. Extrem Other: There is no calf pain. Objective Last Vital Signs Temp 98.1 F 03/17/24 15:59 Pulse 77 03/17/24 15:59 Resp 12 03/17/24 15:59 BP 108/47 L 03/17/24 15:59 Pulse Ox 96 03/17/24 15:59 Laboratory Results - last 24 hr 03/16/24 03/16/24 03/16/24 18:32 18:57 22:13 WBC 12.17 H RBC 1.87 L Hgb 5.6 L* Hct 18.8 L* MCV 101 H MCH 29.9 MCHC 29.8 L RDW 20.0 H Plt Count 294 MPV 9.9 Immature Gran % 1.6 Neutrophils % 75.9 Lymphocytes % 14.0 Monocytes % 7.7 Eosinophils % 0.7 Basophils % 0.1 Nucleated RBC % 0.4 H Absolute Neutrophils 9.24 H Absolute Lymphocytes 1.70 Absolute Monocytes 0.94 H Absolute Eosinophils 0.09 Absolute Basophils 0.01 PT 12.1 H INR 1.2 H VBG Lactate 1.5 H Sodium 135 L Potassium 6.8 H* Chloride 106 Carbon Dioxide 17.7 L Anion Gap 11.3 H BUN 64 H Creatinine 1.9 H Est GFR (CKD-EPI 2020) 38.42 Glucose 137 H Calcium 8.6 Magnesium 1.8 Total Bilirubin 0.3 AST 13 L ALT 18 Alkaline Phosphatase 60 Troponin I < 50 Total Protein 6.0 L Albumin 2.0 L Lipase 45 Procalcitonin 0.3 Urine Color Urine Clarity Urine pH Ur Specific Edmonson Urine Protein Urine Ketones Urine Blood Urine Nitrite Urine Bilirubin Urine Urobilinogen Ur Leukocyte Esterase Urine RBC Urine WBC Ur Epithelial Cells Urine Crystals Urine Bacteria Urine Casts Urine Mucus Ur Culture Indicated? Urine Glucose Random Vancomycin MRSA (TEM-PCR) Negative ABO/Rh O Positive Antibody Screen NEGATIVE Crossmatch See Detail 03/16/24 03/16/24 03/17/24 22:55 23:50 02:56 WBC RBC Hgb 7.2 L Hct 22.6 L MCV MCH MCHC RDW Plt Count MPV Immature Gran % Neutrophils % Lymphocytes % Monocytes % Eosinophils % Basophils % Nucleated RBC % Absolute Neutrophils Absolute Lymphocytes Absolute Monocytes Absolute Eosinophils Absolute Basophils PT INR VBG Lactate 1.7 H Sodium Potassium 5.9 H Chloride Carbon Dioxide Anion Gap BUN Creatinine Est GFR (CKD-EPI 2020) Glucose Calcium Magnesium Total Bilirubin AST ALT Alkaline Phosphatase Troponin I Total Protein Albumin Lipase Procalcitonin Urine Color Yellow Urine Clarity Clear Urine pH 5.0 Ur Specific Edmonson 1.010 Urine Protein Trace Urine Ketones Negative Urine Blood Trace-intact H Urine Nitrite Negative Urine Bilirubin Negative Urine Urobilinogen 0.2 Ur Leukocyte Esterase Trace H Urine RBC 3-5 H Urine WBC 20-50 H Ur Epithelial Cells Rare Urine Crystals Negative Urine Bacteria Few Urine Casts 3-5 Hyaline Urine Mucus Negative Ur Culture Indicated? Yes Urine Glucose Negative Random Vancomycin MRSA (TEM-PCR) ABO/Rh Antibody Screen Crossmatch 03/17/24 03/17/24 05:30 13:10 WBC 10.22 8.66 RBC 2.48 L 2.44 L Hgb 7.5 L 7.2 L Hct 23.6 L 23.3 L MCV 95 D 96 H MCH 30.2 29.5 MCHC 31.8 L 30.9 L RDW 19.8 H 20.1 H Plt Count 226 230 MPV 9.4 9.1 Immature Gran % 2.1 Neutrophils % 72.0 Lymphocytes % 15.1 Monocytes % 9.1 Eosinophils % 1.6 Basophils % 0.1 Nucleated RBC % 0.5 H Absolute Neutrophils 7.37 H Absolute Lymphocytes 1.54 Absolute Monocytes 0.93 H Absolute Eosinophils 0.16 Absolute Basophils 0.01 PT INR VBG Lactate 0.8 Sodium 134 L 139 Potassium 5.7 H 4.9 Chloride 108 H 110 H Carbon Dioxide 18.2 L 17.9 L Anion Gap 7.8 11.1 H BUN 56 H 43 H Creatinine 1.4 H 1.1 Est GFR (CKD-EPI 2020) 55.43 74.04 Glucose 143 H 156 H Calcium 8.1 L 8.4 L Magnesium Total Bilirubin 0.5 AST 11 L ALT 15 L Alkaline Phosphatase 57 Troponin I Total Protein 5.6 L Albumin 1.9 L Lipase Procalcitonin Urine Color Urine Clarity Urine pH Ur Specific Edmonson Urine Protein Urine Ketones Urine Blood Urine Nitrite Urine Bilirubin Urine Urobilinogen Ur Leukocyte Esterase Urine RBC Urine WBC Ur Epithelial Cells Urine Crystals Urine Bacteria Urine Casts Urine Mucus Ur Culture Indicated? Urine Glucose Random Vancomycin 28.5 MRSA (TEM-PCR) ABO/Rh Antibody Screen Crossmatch Time Spent with Patient Time Spent with Patient: 25-34 minutes Time was spent: preparing to see the patient(eg.review tests), obtaining and/or reviewing separately otained hiistory, referring, communicating with other health spiritual care coordinator, indepentently interpreting results and counseling the patient
[2024-03-17] MEDS: Insulin Glargine 300 UNITS/3 ML PEN 20 UNITS SC (20:48)
[2024-03-17] MEDS: Insulin Aspart 300 UNITS/3 ML PEN SC (20:50)
[2024-03-18] VITALS (126 sets, daily range): BP systolic 86–140; BP diastolic 43–91; PULSE 59–91; RESP 11–22; TEMP 36.3–37; O2SAT 81–98
[2024-03-18] MEDS: IMIPENEM/CILASTATIN 500 MG in Normal Saline 100 ML 200 MG IVPB ×4 (01:42→20:47)
[2024-03-18] MEDS: Normal Saline 1,000 ML 100 ML IV ×2 (03:55→18:29)
[2024-03-18] MEDS: VANCOMYCIN/WATER (PEG) 1.25 GM/250 ML BAG IV ×2 (03:55→16:14)
[2024-03-18] MEDS: Pantoprazole 40 MG VIAL IVP ×2 (05:40→16:59)
[2024-03-18] MEDS: Normal Saline Flush 10 ML SYR IVP ×4 (05:41→23:27)
[2024-03-18 06:24] LABS: HCT 24.7 % (40.0-50.0); HGB 7.9 g/dL (13.5-17.5); MCH 29.8 pg (27.0-33.0); MCV 93 fL (80-95); MPV 9.3 fL (8.0-11.0); Platelet Count 231 10^3/uL (130-400); RBC 2.65 10^6/uL (4.36-5.78); RDW-SD 63.8 fL; WBC 7.31 10^3/uL (4.4-10.8)
[2024-03-18 06:41] LABS: BUN 23 mg/dL (7-18); CO2 20.6 mmol/L (21.0-32.0); CREATININE 0.7 mg/dL (0.70-1.30); Estimated GFR 101.62 (mL/min/1.73m2); Glucose 122 mg/dL (74-106); RDW 20.3 % (11.8-14.1)
[2024-03-18 06:45] LABS: Anion Gap 8.4 mmol/L (3-11); Chloride 110 mmol/L (98-107); Potassium 3.9 mmol/L (3.5-5.1); Sodium 139 mmol/L (136-145)
[2024-03-18] MEDS: Norepinephrine in D5W 8 MG/250 ML BAG 18.75 MG IV (07:04)
[2024-03-18] MEDS: Sucralfate 1 GM TAB PO ×4 (07:11→20:48)
--- NOTE | 2024-03-18 07:55 | WOUNDCONS ---
Date of service: 03/18/24 Time of Service: 04:00 Wound Initial Evaluation Narrative Narrative: Obese 64 year old male admitted on 03/16/24 from a care home assisted for anemia. 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 Patient has Type 2 DM and a BMI of 45.5. The patient was recently admitted to [facility] in late February 2024 with septic shock due to UTI and pneumonia.The patient is bed bound. At the prior admission and at this admission the patient presented with excoriated buttocks due to stool incontinence, stage 2 pressure injuries, and red rashy areas. A Radford catheter for urine and a rectal tube for stool have been placed and are patent. Allergies, H&P and recent labs were reviewed and consent for photo was gained. Wound Buttocks/bilateral posterior thighs: Wound Type: Maceration Pressure Ulcer Stage: II Wound General Appearance: Reddened Wound Surrounding Tissue Appearance: Weeping Wound Drainage Amount: Minimal Wound Summary Wound Summary: Wound area is excoriated with large erythema areas. Where the skin is open there is minimal bloody drainage. A patent rectal tube is in place. Photo Photo: Treatment/Dressing Change Topicals/Ointments: Zincoxide Nutrition Education Reviewed Nutrition Education: Yes Note: Discussed the importance of increased protein needs for optimum wound care. At time of assessment patient is utilizing a clear liquid CHO diet. Controlled blood sugars were also discussed. Recomendation Recomendation:: During repositioning check for stool incontinence and assess reddened areas for continued application of Bobby's cream. Apply a thin film to wound area, do not cake. If soiled cleanse area with soap and water, or body wash cloths, and reapply Bobby's cream to reddened areas. Physcian/Nurse Practioner Notified: Yes
[2024-03-18] MEDS: Folic Acid 1 MG TAB 5 MG PO (07:57)
[2024-03-18] MEDS: Insulin Aspart 300 UNITS/3 ML PEN SC (08:40)
[2024-03-18] MEDS: Triamcinolone 0.1% CR 15 GM TUBE TP ×2 (11:00→20:58)
--- NOTE | 2024-03-18 12:05 | PHA.REVIEW2 ---
Pharmacy Admission Review Admission Clinical Review Admission Pharmacy Review: Acute blood loss anemia (Acute) DVT prophylaxis (Acute) Acute hyperkalemia (Acute) Acute right hemiparesis (Acute) Acute CVA (cerebrovascular accident) (Acute) Acute renal insufficiency (Acute) Anemia (Acute) Gastrointestinal hemorrhage with melena (Acute) Pressure ulcer (Acute) aspirin Allergy (Mild, Verified 03/16/24 18:52) Other (See Comment) metformin Allergy (Unknown, Verified 03/16/24 18:52) Unknown sulfamethoxazole [From Bactrim] Allergy (Unknown, Verified 03/16/24 18:52) Unknown trimethoprim [From Bactrim] Allergy (Unknown, Verified 03/16/24 18:52) Unknown Resuscitation Status DNR/DNI Height 5 ft 10 in Weight 143.7 kg Comments Comments/Follow Ups: Will need to change SS insulin order from q6h to AC/HS once patient is taking PO. Ask provider about changing pantoprazole from IV to PO. Reach out to provider once patient able to tolerate PO intake regarding missing home meds. Pharmacy Admission Review Renal Dosing Renal Dosing: BUN 23 mg/dL (7-18) H 03/18/24 05:30 Creatinine 0.7 mg/dL (0.70-1.30) 03/18/24 05:30 Medications needing adjustments: Reviewed (CrCl 104.09 mL/min, BUN decreased from 43 and SCr decreased from 1.1) List of meds needing interventions: Current medications are okay Anticoagulation Anticoagulation: Hgb 7.9 g/dL (13.5-17.5) L 03/18/24 05:30 Hct 24.7 % (40.0-50.0) L 03/18/24 05:30 Plt Count 231 10^3/uL (130-400) 03/18/24 05:30 INR 1.2 (0.9-1.1) H 03/16/24 18:32 Creatinine 0.7 mg/dL (0.70-1.30) 03/18/24 05:30 DVT Prophylaxis: Reviewed (SCDs - anemia, source of blood loss unknown per progress note, blood in stool this morning) Relevant Labs Relevant Labs: Sodium 139 mmol/L (136-145) 03/18/24 05:30 Potassium 3.9 mmol/L (3.5-5.1) D 03/18/24 05:30 Chloride 110 mmol/L (98-107) H 03/18/24 05:30 Magnesium 1.8 mg/dL (1.8-2.4) 03/16/24 18:32 Electrolytes, C-Reactive P, ESR: Reviewed (Hgb slightly increased from 7.2 to 7.9) DM Control DM Control: Glucose 122 mg/dL (74-106) H 03/18/24 05:30 Finger Stick Blood Glucose 121 1137 Finger Stick Blood Glucose 121 1137 Finger Stick Blood Glucose 176 0840 Finger Stick Blood Glucose 176 0836 Finger Stick Blood Glucose 176 0836 DM Control: Reviewed Insulin Dosing, Diabetic Medication: Has order for SS insulin and 20 units of glargine at bedtime. Will need to change SS insulin order from q6h to AC/HS once patient is taking PO. Cardiac Review Cardiac Review: Troponin I < 50 ng/L (< or =60) 03/16/24 18:32 Blood Pressure [Right Arm] 121/46 Blood Pressure [Right Arm] 115/50 Blood Pressure 103/52 1117 Blood Pressure 130/62 1031 Blood Pressure 121/59 1001 Blood Pressure 135/56 0932 Blood Pressure 122/58 0901 Blood Pressure 122/54 0831 BP, HR, EF%: Reviewed (HR WNL, BP 103/52) QTc Review QTc: Reviewed (415 from 03/16/24) IV to PO Switch IV Medications: Reviewed (Unasyn, Levophed drip, pantoprazole and vancomycin. Change pantoprazole to PO once patient is able to take PO) Home Meds Home Med List reviewed: Reviewed Relevent Home Meds Not ordered & why?: Amiloride, diltiazem, enalapril, Combivent, potassium supplement, simvastatin, tamsulosin Patient currently does not have PO intake, reach out to provider once patient able to tolerate PO intake. Current Meds Current Medication Order Review: Reviewed Comments: Levophed drip currently at 10 mcg/min Pharmacy Antibiotic Review Relevant Labs: WBC 7.31 10^3/uL (4.4-10.8) 03/18/24 05:30 Procalcitonin 0.3 ng/mL 03/16/24 18:32 Temperature 36.8 C Temperature 36.5 C Temperature 36.7 C Temperature 36.5 C Microbiology 03/16/24 23:50 Urine Culture - Preliminary Urine - Reflex from Ua Gram Positive Belinda,Mixed 03/16/24 18:32 Blood Culture - Preliminary Blood NO GROWTH 24 HOURS 03/17/24 02:56 Blood Culture - Preliminary Blood NO GROWTH 24 HOURS 03/18/24 03:30 Stool Occult Blood (NIK) - Final Stool Pharmacy Antibiotic Activity: C/S review and Reviewed, no change Comments: Patient is on imipenem/cilastatin and vancomycin day 2. Vancomycin dose currently at 1250mg q12h with predicated AUC of 528 and trough of 13.6. Last level was 28.5 on 03/17/24 at 1310. Comments Comments/Follow Ups: Will need to change SS insulin order from q6h to AC/HS once patient is taking PO. Ask provider about changing pantoprazole from IV to PO. Reach out to provider once patient able to tolerate PO intake regarding missing home meds.
--- NOTE | 2024-03-18 13:41 | PGE_ITS ---
Date of Service Date of service: 03/18/24 Time of Service: 08:30 Assessment and Plan Assessment and plan (1) Acute blood loss anemia: Status: Acute Assessment and plan: (a) No changes since yesterday (b) SBP better. BP now 122/54. Remains on Norepi drip at 10mcg/min (c) Hgb/Hct better than yesterday. (d) Will sign-off case at this time. Remain available as needed, just call. Thanks. Reyes Garibay D.O. Subjective Subjective Interval history since last seen: Patient seen briefly this morning on rounds. Case discussed with Micky Wells. H/H 7.9/24.7 (actually better than yesterday) Objective Last Vital Signs Temp 98.2 F 03/18/24 11:19 Pulse 78 03/18/24 11:17 Resp 14 03/18/24 11:17 BP 103/52 L 03/18/24 11:17 Pulse Ox 96 03/18/24 11:17 Laboratory Results - last 24 hr 03/16/24 03/17/24 03/18/24 18:57 13:10 05:30 WBC 7.31 RBC 2.65 L Hgb 7.9 L Hct 24.7 L MCV 93 MCH 29.8 MCHC 32.0 RDW 20.3 H Plt Count 231 MPV 9.3 Sodium 139 Potassium 3.9 D Chloride 110 H Carbon Dioxide 20.6 L Anion Gap 8.4 BUN 23 H Creatinine 0.7 Est GFR (CKD-EPI 2020) 101.62 Glucose 122 H Calcium 8.0 L Random Vancomycin 28.5 ABO/Rh O Positive Antibody Screen NEGATIVE Crossmatch See Detail Time Spent with Patient Time Spent with Patient: <25 minutes Time was spent: preparing to see the patient(eg.review tests), referring, commun icating with other health care services manager and indepentently interpreting results
--- NOTE | 2024-03-18 13:59 | W.PM.PROGNOT ---
Date of Service Date of service: 03/18/24 Time of Service: 13:59 Assessment and Plan Assessment and plan (1) Anemia: Status: Acute Assessment and plan: -Multifactorial; folate deficiency and acute on chronic blood loss anemia due to upper GI bleed -Patient is dropped 2 g of hemoglobin since his discharge a week ago, and was given 2U PRBCs on admission - Although we received no history from the [facility] that he was having acute GI bleeding I suspect that he has had some ongoing bleeding in spite of being treated with a PPI and Carafate and placed on folate supplementation. -6/7 AM Hb 7.5, repeat 7.2, additional unit of PRBCs given -6/8 AM Hb 7.9, will order repeat H/H for later this afternoon -will transfuse if PM Hb remains under 8 -surgical consultation apprecaited; risk outweight benefit of EGD due to recent severe respiratory illness, and given presentation of GI bleed, this is likely due to stress/erosive gastritis which an EGD would not serve any additional benefit -rec outpatient EGD in 6-8wks once respiratory issues have resolved though this should be discussed with anesthesia for exact recommended timing Qualifiers: Anemia type: other cause Other causes of anemia: acute posthemorrhagic Qualified Code(s): D62 - Acute posthemorrhagic anemia (2) Gastrointestinal hemorrhage with melena: Status: Acute Assessment and plan: -as noted above (3) Acute hyperkalemia: Status: Acute Assessment and plan: -Patient had severe hyperkalemia last admission when he had acute kidney injury ordered treatment of his hyperkalemia. -Post resuscitation he had hypokalemia and required resumption of his Amoride and potassium supplementation. -given recurrence of hyperkalemia spironolactone has been discontinued -K on admission 6.8, improved down to 5.7 this AM s/p IV fluids, insulin, glucose, and Lokelma -AM 6.8 K 3.9, will follow-up am BMP (4) Acute renal insufficiency: Status: Acute Assessment and plan: -Acute on chronic renal insufficiency -Cr 1.9 on admission -improved to 1.4 on AM 6/7, downt o 0.7 AM 6/8 -f/u repeat BMP (5) Type 2 diabetes mellitus: Assessment and plan: -continue home insulin regimen Qualifiers: Diabetes mellitus termite control service representative insulin use: with fdc use Diabetes mellitus complication status: with kidney complications Chronic kidney disease stage: unspecified stage (6) Pressure ulcer: Status: Acute Assessment and plan: Wound care consult Qualifiers: Pressure injury location: sacral region (7) DVT prophylaxis: Status: Acute Assessment and plan: SCDs, as patient is not a candidate for chemoprophylaxis in light of recent GI bleeding Subjective Subjective Interval history since last seen: Patient states that he is doing well today. He expresses understanding that his Hb level has remained stable since last blood transfusion yesterday, and that we are going to work on weaning/discontinuing his levophed. Exam Narrative Exam Narrative: Chronically ill obese appearing gentleman laying in bed in no acute distress, awake, alert, oriented to person and place and intermittently to situation, heart regular rate rhythm, lungs clear to auscultation bilaterally, abdomen obese, soft, nontender, nondistended, close 2 bilateral pitting edema of bilateral lower extremities to the knees Objective Last Vital Signs Temp 98.2 F 03/18/24 11:19 Pulse 78 03/18/24 11:17 Resp 14 03/18/24 11:17 BP 103/52 L 03/18/24 11:17 Pulse Ox 96 03/18/24 11:17 Laboratory Results - last 24 hr 03/16/24 03/18/24 18:57 05:30 WBC 7.31 RBC 2.65 L Hgb 7.9 L Hct 24.7 L MCV 93 MCH 29.8 MCHC 32.0 RDW 20.3 H Plt Count 231 MPV 9.3 Sodium 139 Potassium 3.9 D Chloride 110 H Carbon Dioxide 20.6 L Anion Gap 8.4 BUN 23 H Creatinine 0.7 Est GFR (CKD-EPI 2020) 101.62 Glucose 122 H Calcium 8.0 L ABO/Rh O Positive Antibody Screen NEGATIVE Crossmatch See Detail Time Spent with Patient Time Spent with Patient: >50 minutes Time was spent: preparing to see the patient(eg.review tests), obtaining and/or reviewing separately otained hiistory, ordering medications,tests, procedures, referring, communicating with other health direct care specialist, indepentently interpreting results, counseling the patient and care coordination
[2024-03-18 15:56] LABS: HGB 7.5 g/dL (13.5-17.5)
[2024-03-18 20:11] LABS: HCT 22.9 % (40.0-50.0); HGB 7.3 g/dL (13.5-17.5)
[2024-03-19] VITALS (116 sets, daily range): BP systolic 85–142; BP diastolic 45–91; PULSE 53–90; RESP 11–29; TEMP 36.3–37.8; O2SAT 51–97
[2024-03-19] MEDS: IMIPENEM/CILASTATIN 500 MG in Normal Saline 100 ML 200 MG IVPB ×4 (01:20→19:30)
--- NOTE | 2024-03-19 01:30 | NUR.NOTE ---
Nursing Note: Transfusion of 1 Unit of PRBC's completed at this time.
[2024-03-19] MEDS: VANCOMYCIN/WATER (PEG) 1.25 GM/250 ML BAG IV ×2 (03:09→17:00)
[2024-03-19] MEDS: Normal Saline 10 ML VIAL IJ (05:01)
[2024-03-19] MEDS: Pantoprazole 40 MG VIAL IVP (05:02)
[2024-03-19] MEDS: Normal Saline 1,000 ML 100 ML IV ×2 (05:12→15:20)
[2024-03-19 07:58] LABS: HCT 25.9 % (40.0-50.0); HGB 8.2 g/dL (13.5-17.5)
[2024-03-19 08:09] LABS: Anion Gap 6.7 mmol/L (3-11); BUN 8 mg/dL (7-18); CO2 23.3 mmol/L (21.0-32.0); CREATININE 0.5 mg/dL (0.70-1.30); Calcium 7.7 mg/dL (8.5-10.1); Chloride 108 mmol/L (98-107); Estimated GFR 112.49 (mL/min/1.73m2); Glucose 73 mg/dL (74-106); Potassium 3.1 mmol/L (3.5-5.1); Sodium 138 mmol/L (136-145)
[2024-03-19] MEDS: Folic Acid 1 MG TAB 5 MG PO (08:13)
[2024-03-19] MEDS: Sucralfate 1 GM TAB PO ×4 (08:14→20:09)
[2024-03-19] MEDS: Normal Saline Flush 10 ML SYR IVP ×2 (08:17→19:30)
[2024-03-19] MEDS: Acetaminophen 325 MG TAB PO ×2 (08:36→19:27)
[2024-03-19 09:21] LABS: Lab Add On Test DONE
[2024-03-19] MEDS: POTASSIUM CHLORIDE 20 MEQ/100 ML BAG 50 MEQ IVINF ×2 (09:29→11:24)
[2024-03-19 09:34] LABS: Magnesium 1.5 mg/dL (1.8-2.4)
--- NOTE | 2024-03-19 09:36 | PGE_ITS ---
Date of Service Date of service: 03/19/24 Time of Service: 09:36 Assessment and Plan Assessment and plan (1) Anemia: Status: Acute Assessment and plan: -Multifactorial; primarily upper GI bleed, also folate deficiency -No [facility]. Had been on PPI and carafate and folate supplument -Patient had dropped 2 g of hemoglobin at admission, and was given 2U PRBCs on admission, additional unit 03/17 and 8 -Hgb above 8 this morning, repeat in PM. -surgical consultation apprecaited; risk outweight benefit of EGD due to recent severe respiratory illness, and given presentation of GI bleed, this is likely due to stress/erosive gastritis which an EGD would not serve any additional benefit -rec outpatient EGD in 6-8wks once respiratory issues have resolved though this should be discussed with anesthesia for exact recommended timing, but we may need to consider tranfer for more urgent EGD at tertiary care if hgb dose note stabilize. Qualifiers: Anemia type: other cause Other causes of anemia: acute posthemorrhagic Qualified Code(s): D62 - Acute posthemorrhagic anemia (2) Gastrointestinal hemorrhage with melena: Status: Acute Assessment and plan: -as noted above (3) Acute hyperkalemia: Status: Acute Assessment and plan: -Patient had severe hyperkalemia last admission when he had acute kidney injury ordered treatment of his hyperkalemia. -Post resuscitation he had hypokalemia and required resumption of his Amiloride and potassium supplementation. -Recurred in setting of GI bleed with SALINAS -given recurrence of hyperkalemia K+ sparing diuretic has been discontinued -K on admission 6.8, improved down to 5.7 this AM s/p IV fluids, insulin, glucose, and Lokelma -K+ now low, a/w short run of VTAC. Given IV and resume the DAREK inhibitor as BP high and SALINAS resolved. Check Mg (4) Acute renal insufficiency: Status: Acute Assessment and plan: -Acute on chronic renal insufficiency -Cr 1.9 on admission, now resolved. (5) Type 2 diabetes mellitus: Assessment and plan: -continue home insulin regimen Qualifiers: Diabetes mellitus [facility] insulin use: with [facility] use Diabetes mellitus complication status: with kidney complications Chronic kidney disease stage: unspecified stage (6) Pressure ulcer: Status: Acute Assessment and plan: Chronic. Wound care consult. I did not see the buttocks today, but discussed monitoring and offloading with primary RN Qualifiers: Pressure injury location: sacral region (7) DVT prophylaxis: Status: Acute Assessment and plan: SCDs, as patient is not a candidate for chemoprophylaxis in light of recent GI bleeding Subjective Subjective Patient reports: no new complaints and tolerating liquids well; denies shortness of breath or fever Interval history since last seen: Events: revieved 4th unit PRBC Feels well. Taking clears. Not dizzy, no palpitations or chest pain. Still b lack colored stools. Exam Narrative Exam Narrative: Chronically ill obese appearing gentleman laying in bed in no acute distress, awake, alert, oriented to person and place and to situation, heart regular rate rhythm, 2/6 systolic murmur, lungs clear to auscultation bilaterally, abdomen obese, soft, nontender, nondistended. 1-2+ bilateral pitting edema of bilateral lower extremities to the knees Objective Last Vital Signs Temp 36.6 C 03/19/24 05:02 Pulse 80 03/19/24 08:02 Resp 13 03/19/24 08:02 BP 142/73 H 03/19/24 08:02 Pulse Ox 95 03/19/24 08:02 Laboratory Results - last 24 hr 03/16/24 03/18/24 03/18/24 18:57 15:50 20:05 Hgb 7.5 L 7.3 L Hct 24.0 L 22.9 L Sodium Potassium Chloride Carbon Dioxide Anion Gap BUN Creatinine Est GFR (CKD-EPI 2020) Glucose Calcium Add-On Test Request ABO/Rh O Positive Antibody Screen NEGATIVE Crossmatch See Detail 03/19/24 03/19/24 07:52 09:20 Hgb 8.2 L Hct 25.9 L Sodium 138 Potassium 3.1 L Chloride 108 H Carbon Dioxide 23.3 Anion Gap 6.7 BUN 8 Creatinine 0.5 L Est GFR (CKD-EPI 2020) 112.49 Glucose 73 L Calcium 7.7 L Add-On Test Request DONE ABO/Rh Antibody Screen Crossmatch Time Spent with Patient Time Spent with Patient: >50 minutes Time was spent: preparing to see the patient(eg.review tests), obtaining and/or reviewing separately otained hiistory, ordering medications,tests, procedures, referring, communicating with other health care asst, indepentently interpreting results, counseling the patient and care coordination
[2024-03-19] MEDS: MAGNESIUM SULFATE 2 GM/50 ML BAG IVINF (10:49)
[2024-03-19 16:07] LABS: HCT 26.9 % (40.0-50.0); HGB 8.5 g/dL (13.5-17.5)
[2024-03-19 16:14] LABS: Potassium 3.6 mmol/L (3.5-5.1)
[2024-03-19 16:17] LABS: Magnesium 1.8 mg/dL (1.8-2.4)
[2024-03-19] MEDS: Potassium Chloride Liquid 20 MEQ PKT PO (17:16)
[2024-03-19] MEDS: Simvastatin 10 MG TAB PO (19:26)
[2024-03-19] MEDS: Pantoprazole 40 MG TABCR PO (19:26)
[2024-03-19] MEDS: Triamcinolone 0.1% CR 15 GM TUBE TP (19:31)
[2024-03-20] VITALS (21 sets, daily range): BP systolic 93–134; BP diastolic 48–96; PULSE 57–92; RESP 11–30; TEMP 37.2–37.7; O2SAT 91–98
[2024-03-20] MEDS: IMIPENEM/CILASTATIN 500 MG in Normal Saline 100 ML 200 MG IVPB (01:20)
[2024-03-20] MEDS: VANCOMYCIN/WATER (PEG) 1.25 GM/250 ML BAG IV (03:56)
[2024-03-20] MEDS: Normal Saline Flush 10 ML SYR IVP ×4 (05:39→21:04)
[2024-03-20 06:32] LABS: Abs Immature Grans 0.04 10^3/uL (0.0-0.06); Absolute Basophil Count 0.02 10^3/uL (0.0-0.2); Absolute Eosinophil Count 0.26 10^3/uL (0.0-0.7); Absolute Monocyte Count 0.39 10^3/uL (0.1-0.8); Absolute Neutrophil Count 4.69 10^3/uL (1.2-6.7); Basophils % 0.3 %; Eosinophils % 4.1 %; HCT 26.7 % (40.0-50.0); HGB 8.4 g/dL (13.5-17.5); Immature Grans % 0.6 %; Lymphocytes % 15.6 %; MCH 29.5 pg (27.0-33.0); MCHC 31.5 % (32.0-36.0); MCV 94 fL (80-95); MPV 9.2 fL (8.0-11.0); Monocytes % 6.1 %; Neutrophils % 73.3 %; Platelet Count 237 10^3/uL (130-400); RBC 2.85 10^6/uL (4.36-5.78); RDW 19.8 % (11.8-14.1); RDW-SD 62.6 fL
[2024-03-20 06:42] LABS: BUN 5 mg/dL (7-18); CREATININE 0.5 mg/dL (0.70-1.30); Calcium 7.5 mg/dL (8.5-10.1); Chloride 110 mmol/L (98-107); Estimated GFR 112.49 (mL/min/1.73m2); Glucose 71 mg/dL (74-106); Potassium 3.4 mmol/L (3.5-5.1); Sodium 140 mmol/L (136-145)
[2024-03-20 06:44] LABS: Magnesium 1.6 mg/dL (1.8-2.4)
--- NOTE | 2024-03-20 08:21 | CMPROGNOTE_ITS ---
Date of service: 03/20/24 Time of Service: 08:21 Care Management Progress Note Progress Note Text Progress Note Text: S/O:Luann was sitting up in bed when CM met with him. He was about to have a physical therapy evaluation and did not appear happy about it. He informed the therapist that he was going to bed. She noted that he was already in bed and he indicated that he wanted to sleep. The evaluation was completed. CM informed Luann that he was doing very well and that there was a chance he could return to [facility] tomorrow, to which he shook his head no. CM informed Luann that she would call his sister Florence to let her know of the potential discharge. CM made the call but needed to leave a message. A: Luann is a 64 year old man admitted on 03/16/24 from [facility] with anemia Discharge Potential Discharge Needs: Other (return to SNF) Anticipated Barriers to Discharge: None Identified Patient/Family Education Needs: Review discharge instructions, discuss Ask Me Three Transportation: Facility Transport Plan: Anticipate Luann will return to [facility] when medically stable. He will follow up with facility providers and plan of care and transport via facility van. CM will follow and support discharge needs. SDOH(Care Management) Screening Will the Patient Participate in the Screening?: Unable to obtain
[2024-03-20] MEDS: Potassium Chloride Liquid 20 MEQ PKT PO (09:28)
[2024-03-20] MEDS: MAGNESIUM SULFATE 2 GM/50 ML BAG IVINF (09:29)
[2024-03-20] MEDS: Folic Acid 1 MG TAB 5 MG PO (09:30)
[2024-03-20] MEDS: Potassium Chloride 20 MEQ TABCR 40 MEQ PO (09:31)
[2024-03-20] MEDS: Sucralfate 1 GM TAB PO ×3 (09:32→20:55)
[2024-03-20] MEDS: Pantoprazole 40 MG TABCR PO ×2 (09:33→20:55)
[2024-03-20] MEDS: Tamsulosin 0.4 MG CAPCR PO (09:33)
[2024-03-20] MEDS: Triamcinolone 0.1% CR 15 GM TUBE TP ×2 (09:35→21:05)
[2024-03-20] MEDS: Acetaminophen 325 MG TAB PO ×3 (12:24→21:01)
--- NOTE | 2024-03-20 14:19 | IN_ITS ---
PT Notes Visit Reasons: anemia Physical Therapy Inpatient Initial Evaluation Date: 03/20/2024 Referring Doctor: Braden Weaver MD PT Orders: PT CONSULT: Eval for Assistive Device. Safety Consult for D/C. 63- yo with h/o CVA right hemiparesis, BMI 47, presure sores. mobilize Precautions: Fall. Standard. R-sided hemiplegia from previous CVA. Patient Profile/Admitting Diagnosis: Luann is a 64-year-old male with past medical history significant for previous CVA, cellulitis, and COVID 19 infection readmitted to the ED on 03/16/2024 due to worsening abdominal pain. Patient is admitted to ICU level of care for management ofanemia, GI hgge with melena, acute hyperkalemia, acute renal insufficiency, type II DM, and pressure ulcer. PMHX: All Active Problems (Updated 03/17/24 @ 00:48 by Aneudy Gill MD) DVT prophylaxis (Acute) Acute hyperkalemia (Acute) Acute right hemiparesis (Acute) Acute CVA (cerebrovascular accident) (Acute) Acute renal insufficiency (Acute) Anemia (Acute) Goals of care, counseling/discussion (Acute) Gastrointestinal hemorrhage with melena (Acute) UTI (urinary tract infection) (Acute) Hyperglycemia (Acute) Anemia (Chronic) Upper GI bleeding (Acute) Leukocytosis (Acute) Pressure ulcer (Acute) Medical History (Updated 03/17/24 @ 00:48 by Aneudy Gill MD) Atrial fibrillation with rapid ventricular response Venous stasis dermatitis of both lower extremities Benign prostatic hyperplasia Hypertension Hemiparesis affecting right side as late effect of stroke Type 2 diabetes mellitus Social History/Home Situation: SNF resident. Dependent transfers using mechanical lift. Equipment Owned/DME: Bedside recliner Subjective: Gets mildly frustrated being unable to express self the way he would want to. Objective: General Observation: Resting in bed. Very high BMI. R-sided weakness noted. Erythema to B LE. Swelling to B LE. Mental Status: Alert and oriented as to person, place, time, and purpose. Able to pay attention, focus, and respond appropriately. Pain: None reported Vital Signs: closely monitored by nursing staff ROM: Right Upper Extremity: Hemiplegia, minimal ability to shrug shoulder Left Upper Extremity: Shoulder Flexion WFL. Shoulder abduction WFL. Elbow f lexion WFL. Wrist flexion WFL. Functional opening and closing of hand WFL. Right Lower Extremity: Hip flexion only allows about 10 degrees but unable to sustain due to weakness . Hip abduction allows up to about 10 degrees. Knee flexion allows about 10 degrees but unable to sustain. Ankle dorsiflexion -20 degrees. Ankle plantarflexion WFL. Left Lower Extremity: Only able to bend at knee about 5 degrees but unable to sustain. Ankle DF -30 degrees. Strength: Right Upper Extremity: Shoulder flexors 1/5. Shoulder abductors 1/5. Elbow flexors 0/5. Elbow extensors 0/5. Certified Rehabilitation Counselor absent. Left Upper Extremity: Shoulder flexors 3/5. Shoulder abductors 3/5. Elbow flexors 3/5. Elbow extensors 3/5. Certified Rehabilitation Counselor strong. Right Lower Extremity: Hip flexors 2-/5. Hip abductors 2-/5. Knee flexors 2-/5. Knee extensors 2-/5. Ankle dorsiflexors 2-/5. Ankle plantarflexors 3-/5. Left Lower Extremity: Hip flexors 1/5. Hip abductors 1/5. Knee flexors 2-/5. Knee extensors 2-/5. Ankle dorsiflexors 2-/5. Ankle plantarflexors 3-/5. Bed Mobility/Transfers: Moderate cueing provided for use of B hands as needed for support, movement sequence, AD management, and posture to reduce fall risk and minimize pain report Rolling moderate assist of 2 to the R Supine to sit maximal assist Sit to supine maximal assist Sit to stand deferred, patient not safe for this activity at this time Stand to sit deferred, patient not safe for this activity at this time Bed to reclining chair deferred, patient not safe for this activity at this time Reclining chair to bed deferred, patient not safe for this activity at this time Gait: Unable to test Balance: Static Sitting: Unable Dynamic Sitting: Unable Static Standing: unable Dynamic Standing: Unable Special Tests: Mobility Limitations Standardized Measure [facility] AM-PAC 6 clicks Basic Mobility Inpatient Short Form: Raw Score: 6 CMS Score: 100% deficit THERA EX: PNF pattern to R UE and LE passively done by PT. AAROM to L UE/LE x 5 to increase major muscle group strength. Informed Consent/Education: Patient was instructed in purpose of PT consult and plan of care. Agreeable to proceed with established PT POC to achieve personal goals. ASSESSMENT:: Patient has been bed-bound since arrival to SNF. Currently requires total dependence and use of mechanical lift for all transfers. Has refused attempts at sitting and standng at edge of bed. Unable to perform independent pressure relief to B buttocks. Expressive aphasia limiting ability to communicate. Can follow instructions. Patient presents with clinical signs and symptoms consistent with current/admitting diagnoses that have resulted to mobility limitations, gait instability, generalized weakness, and overall ADL decline as demonstrated by the following impairment level findings: 1. Decreased strength to B UE/LE major muscle groups with R UE/LE hemiparetic 2. Impaired sitting/standing balance 3. Impaired activity tolerance 4. Limitation of joint range of motion in R UE/LE 5. Shortness of breath 6. Skin breakdown in buttocks Impairments are contributing to the following functional limitations: 1. Decline in bed mobility skills 2. Decline in transfer skills 3. Unable to ambulate 4. Increased completion time for mobility ADL performance 5. Increased risk for falls 6. Difficulty with managing steps alone safely 7. Increased risk for skin breakdown Patient is assessed as a 99851 high complexity based on the following: History: 64-year-old male with past medical history as indicated above Examination: Demonstrable impairment in strength, balance, and mobility level with underlying impairments and functional limitations as exhibited above as well as deficit score of 100% utilizing the [facility] Mobility Inpatient Short Form Presentation: Evolving Decision Makin high complexity Goals: Goals X1 week 1. Supine-Sit moderate assist while using bed rail 2. Sit-Supine moderate assist while using bed rail 3. Sit-Stand moderate assist while using bed rail 4. Stand-Sit moderate assist of 2 with use of STEDY lift 5. Bed-Chair imoderate assist of 2 with use of STEDY lift 6. Chair-Bed independent moderate assist of 2 with use of STEDY lift Plan of Care/Treatment Plan: 1-2x/day, 7 days/week x 1 week. Plan of care has been reviewed with the HOUSING INSPECTORS providing the service under Physical Therapy direction. Initiate Physical Therapy intervention for pain management as needed, strengthening, bed mobility, transfers, gait, stairs, balance training, and use of assistive device. DISCHARGE RECOMMENDATIONS: [] Home with no services [] [] Home with services [specify] [] Home with outpatient PT [] [] SNF for continued rehabilitation [] [] Record Press Supervisor Care [] [] SNF versus LTC based on ability to participate and progress [] [X] Return to SNF when medically cleared, resume PT as appropriate TREATMENT CODE/TIME: 9716 2 x 21 minutes for 1 unit (14:19-14:40). Thank you for the opportunity to participate in the care of this patient. Kacey Montgomery PT, DPT, CLT [facility] [place], [place]
[2024-03-20] MEDS: Protein Nutritional Supplement 16 GM 1 OUNCE PACKET PO ×2 (14:35→20:55)
--- NOTE | 2024-03-20 17:22 | W.PM.PROGNOT ---
Date of Service Date of service: 03/20/24 Time of Service: 17:22 Assessment and Plan Assessment and plan (1) Anemia: Status: Acute Assessment and plan: -Multifactorial; primarily upper GI bleed, also folate deficiency -No ongoing GI bleed noted in half-way. Had been on PPI and carafate and folate supplument -Patient had dropped 2 g of hemoglobin at admission, and was given 2U PRBCs on admission, additional unit 03/17 and 03/18 -Hgb above 8 and stable for the last 3 levels now. -surgical consultation apprecaited; risk outweight benefit of EGD due to recent severe respiratory illness, and given presentation of GI bleed, this is likely due to stress/erosive gastritis which an EGD would not serve any additional benefit -rec outpatient EGD in 6-8wks once respiratory issues have resolved though this should be discussed with anesthesia for exact recommended timing. -Given he has finally stabilized will downgrade to floor and defer consideration for transfer. Qualifiers: Anemia type: other cause Other causes of anemia: acute posthemorrhagic Qualified Code(s): D62 - Acute posthemorrhagic anemia (2) Hypotension: Status: Acute Assessment and plan: He was placed on broad spectrum antibiotics and was on pressors at admission. No source of infection found, cultures negative x 72 hours, off pressors since 03/18. Stopped antibiotics today. BPs still a little soft again since 03/19 am, holding outpatient antihypertensives. (3) Gastrointestinal hemorrhage with melena: Status: Acute Assessment and plan: -as noted above (4) Acute hyperkalemia: Status: Acute Assessment and plan: -Patient had severe hyperkalemia last admission when he had acute kidney injury ordered treatment of his hyperkalemia. -Post resuscitation he had hypokalemia and required resumption of his Amiloride and potassium supplementation. -Recurred in setting of GI bleed with SALINAS -given recurrence of hyperkalemia K+ sparing diuretic has been discontinued -K on admission 6.8, improved down to 5.7 this AM s/p IV fluids, insulin, glucose, and Lokelma -K+ low since 03/19 -K+ and Mg++ still low, replaced again today (5) Acute renal insufficiency: Status: Acute Assessment and plan: -Acute on chronic renal insufficiency -Cr 1.9 on admission, now resolved. (6) Type 2 diabetes mellitus: Assessment and plan: -insulin started last admission when he was on steroids, sugars now lower, will cut dose Qualifiers: Diabetes mellitus fpc insulin use: with terminal operations supervisor use Diabetes mellitus complication status: with kidney complications Chronic kidney disease stage: unspecified stage (7) Pressure ulcer: Status: Acute Assessment and plan: Chronic. Wound care consult reviewed. Ordered specialized bed/mattress to help offload. Qualifiers: Pressure injury location: sacral region (8) DVT prophylaxis: Status: Acute Assessment and plan: SCDs, as patient is not a candidate for chemoprophylaxis in light of recent GI bleeding Subjective Subjective Patient reports: no new complaints; denies nausea, vomiting, shortness of breath or fever Interval history since last seen: Still darks stools, but small amount. Difficulty turning to offload and treat wounds, RNs request specialized bed to help turn. He is eating clear diet well. Exam Narrative Exam Narrative: Chronically ill obese appearing gentleman laying in bed in no acute distress, awake, alert, oriented to person and place and to situation, heart regular rate rhythm, 1-2/6 systolic murmur, lungs clear to auscultation bilaterally, abdomen obese, soft, nontender, nondistended. 1-2+ bilateral pitting edema of bilateral lower extremities to the knees, skin on right turner more pink. Objective Last Vital Signs Temp 37.6 C H 03/20/24 16:27 Pulse 80 03/20/24 16:20 Resp 20 03/20/24 16:20 BP 101/58 L 03/20/24 16:20 Pulse Ox 93 03/20/24 16:24 Laboratory Results - last 24 hr 03/20/24 03/20/24 05:45 08:30 WBC 6.40 RBC 2.85 L Hgb 8.4 L Cancelled Hct 26.7 L Cancelled MCV 94 MCH 29.5 MCHC 31.5 L RDW 19.8 H Plt Count 237 MPV 9.2 Immature Gran % 0.6 Neutrophils % 73.3 Lymphocytes % 15.6 Monocytes % 6.1 Eosinophils % 4.1 Basophils % 0.3 Nucleated RBC % 0.0 Absolute Neutrophils 4.69 Absolute Lymphocytes 1.00 L Absolute Monocytes 0.39 Absolute Eosinophils 0.26 Absolute Basophils 0.02 Sodium 140 Potassium 3.4 L Chloride 110 H Carbon Dioxide 22.0 Anion Gap 8.0 BUN 5 L Creatinine 0.5 L Est GFR (CKD-EPI 2020) 112.49 Glucose 71 L Calcium 7.5 L Magnesium 1.6 L Time Spent with Patient Time Spent with Patient: >50 minutes Time was spent: preparing to see the patient(eg.review tests), obtaining and/or reviewing separately otained hiistory, ordering medications,tests, procedures, referring, communicating with other health manager primary care, indepentently interpreting results, counseling the patient and care coordination
[2024-03-20] MEDS: Simvastatin 10 MG TAB PO (20:55)
[2024-03-20] MEDS: Insulin Glargine 300 UNITS/3 ML PEN 8 UNITS SC (22:33)
[2024-03-21 05:10] VITALS: BP 104/78; PULSE 93; RESP 16; TEMP 36; O2SAT 96
[2024-03-21 06:39] LABS: Anion Gap 8.6 mmol/L (3-11); BUN 5 mg/dL (7-18); CO2 21.4 mmol/L (21.0-32.0); CREATININE 0.5 mg/dL (0.70-1.30); Calcium 7.6 mg/dL (8.5-10.1); Chloride 108 mmol/L (98-107); Estimated GFR 112.49 (mL/min/1.73m2); Glucose 86 mg/dL (74-106); Magnesium 1.9 mg/dL (1.8-2.4); Potassium 3.4 mmol/L (3.5-5.1); Sodium 138 mmol/L (136-145)
[2024-03-21 07:41] VITALS: BP 127/78; PULSE 76; RESP 18; TEMP 36.2; O2SAT 96
[2024-03-21] MEDS: Folic Acid 1 MG TAB 5 MG PO (09:46)
[2024-03-21] MEDS: Normal Saline Flush 10 ML SYR IVP (09:46)
[2024-03-21] MEDS: Protein Nutritional Supplement 16 GM 1 OUNCE PACKET PO (09:46)
[2024-03-21] MEDS: Pantoprazole 40 MG TABCR PO (09:47)
[2024-03-21] MEDS: Tamsulosin 0.4 MG CAPCR PO (09:47)
[2024-03-21] MEDS: Potassium Chloride Liquid 20 MEQ PKT PO (09:47)
[2024-03-21] MEDS: Sucralfate 1 GM TAB PO (09:47)
[2024-03-21] MEDS: Triamcinolone 0.1% CR 15 GM TUBE TP (09:48)
--- NOTE | 2024-03-21 10:44 | PT.INTREAT ---
PT Notes Visit Reasons: anemia Physical Therapy Inpatient Initial Evaluation Date: 03/21/2024 Precautions: Fall. Standard. R-sided hemiplegia from previous CVA. Subjective: Agreeable to moving and exercising while in bed. Much more awake today than he was yesterday. COmplained of achnvess and soreness in the R thigh when R LE is minimally moved. Objective: General Observation: Resting in bed. Very high BMI. R-sided weakness noted. Erythema to B LE. Swelling to B LE. Mental Status: Alert and oriented as to person, place, time, and purpose. Able to follow single-step commands. Responses limited and with decreased accuracy due to expressive aphasia. Pain: None reported Vital Signs: closely monitored by nursing staff THERA EX: PNF pattern to R UE and LE passively done by PT. Using green thera band, strengthening provided to L shoulder and elbow flexors, abductors, and horizontal abductors x 10 reps each. performed AROM for quad sets x 10, gluteal sets x 10, slide outs x 10 and ankle DF/PF on the L side without undue pain report. Only able to perform toe curls on the R without pain report. ASSESSMENT:: Patient has been bed-bound since arrival to SNF. Currently requires total dependence and use of mechanical lift for all transfers. Has refused attempts at sitting and standing at edge of bed. Unable to perform independent pressure relief to B buttocks. Expressive aphasia limiting ability to communicate. Can follow single-instructions. required skilled services to prevent further functional mobility and strength decline while on admission. Plan of Care/Treatment Plan: 1-2x/day, 7 days/week x 1 week. Plan of care has been reviewed with the LAY MIDWIFE providing the service under Physical Therapy direction. Initiate Physical Therapy intervention for pain management as needed, strengthening, bed mobility, transfers, gait, stairs, balance training, and use of assistive device. DISCHARGE RECOMMENDATIONS: [] Home with no services [] [] Home with services [specify] [] Home with outpatient PT [] [] SNF for continued rehabilitation [] [] Public Relations Account Supervisor Care [] [] SNF versus LTC based on ability to participate and progress [] [X] Return to SNF when medically cleared, resume PT as appropriate TREATMENT CODE/TIME: 35497 x 24 minutes for 2 unit (10:44-11:08).
[2024-03-21] MEDS: Acetaminophen 325 MG TAB PO (11:10)
[2024-03-21 11:36] LABS: HCT 28.3 % (40.0-50.0); HGB 8.9 g/dL (13.5-17.5)
--- NOTE | 2024-03-21 13:27 | PDOC.CMDIS ---
Date of service: 03/21/24 Time of Service: 13:27 LACE Index Scoring Tool Questions: Length of Stay (in days): 4 - 6 Was the patient admitted via the E.D.?: Yes Comorbidities: Cerebrovascular Disease and Liver or Renal Disease E.D. Visits: 2 Answers: Total Score: 14 Risk of Readmission: High Risk Care Management Discharge Plan Reason for Hospitalization: Anemia Discharge Plan: Luann will return to [facility] via EMS, the facility will manage his further care needs. EMS will provide transportation. CM left message advising his sister Karen of his discharge back to [facility]. Patient/Family Education Needs: Review discharge instructions, discuss Ask Me Three Services Needed at Discharge: Retirement Facility ([facility]) and Transportation (EMS) SDOH Health Related Social Needs: No Data to Display
--- NOTE | 2024-03-21 14:54 | DSE_ITS ---
Date of service: 03/21/24 Time of Service: 14:54 DS: Diagnosis Discharge Diagnosis (1) Anemia: Status: Acute (2) Hypotension: Status: Acute (3) Gastrointestinal hemorrhage with melena: Status: Acute (4) Acute hyperkalemia: Status: Acute (5) Acute renal insufficiency: Status: Acute (6) Type 2 diabetes mellitus: (7) Pressure ulcer: Status: Acute (8) DVT prophylaxis: Status: Acute Discharge Plan Disposition Patient Disposition: [facility]iary Facility(SNF) Condition: Fair Discharge Details Reason For Visit: anemia Admit Date/Time: 03/16/24 20:51 Admit Provider: Aneudy Gill Attending Provider: Aneudy Gill Primary Care Provider: Bright Finney Hospital Course Hospital Course: 64 yo M with type 2 DM, BMI 47, h/o CVA with residual right sided hemiparesis and expressive aphasia, who was admitted 03/02- for septic shock associated with COVID pnuemonia. That admission he had heme positive black stools felt secondary to stress ulcers but his hemoglobin dropped only mildly, he was started on pantoprazole and carafate. On 03/16 he was readmitted with a hemoglobin of 5.6%. He was transfused 2 units on admission and an additional unit on 03/17 and 03/18 for a total of 4 units. His hemoglobin stabilized at between 8.4-8.0 from 03/19 to 03/21. His stools were black on admission and heme positive, but more brown by the day of discharge. Surgery was consulted and felt that the risk of EGD in his current state outweighed the benefits. Endoscopy should be considered at a tertiary care center as an outpatient. He should continue high dose PPI and carafate. He was also hypotensive on admission and was treated with antibiotics and norepinephrine. He was weaned off norepinephrine 03/18. Cultures did not grow any bacteria and the antibiotics were stopped 03/20. His urine just grew yeast, but he has a chronic hood, this was not treated as pathogenic. He has several pressure sores on his buttocks and one on the head of his penis. They didn't look acutely infected. Stool bag was place to keep the buttocks clean and dressing placed, but was removed at discharge as these are not supported by the rehab facility. He would benefit from alternating pressure mattress to offload these wounds. He will absolutely require daily wound care, and nursing staff should insist on assessing and cleaning the wounds daily as the patient often prefers not to move and these wounds are at risk of infection. He was hyperkalemic on admission. Amiloride was stopped. He became hypokalemic and supplementation was resumed, but amiloride was not restarted. His enalapril was held, and resumed upon discharge at lower dose. Diltiazem was also stopped. He remained in sinus rhythm with pulse in the 70s. He has had a hood catheter chronically. This should be replaced at least every month. He should have follow up with urology to consider removal. he should have CBC and BMP within a week. these orders were placed. Home Meds and New Rx's Prescriptions: New sucralfate 1 gram Tablet 1 g PO AC & HS Qty: 120 0RF zinc oxide 20 % Ointment 1 applic topical TID PRN PRNQty: 0 0RF clotrimazole 1 % Cream 1 applic topical TID PRN PRNQty: 45 0RF vits A and D-white pet-lanolin Ointment 1 applic topical TID PRN PRNQty: 0 0RF Phlexy-Vits 15 mg- 700 mcg Powder In Packet 1 packet PO TID Qty: 0 0RF Continued triamcinolone acetonide 0.1 % cream 1 applic TOPICAL BID Patient Comments: APPLY TOPICALLY TO THE AFFECTED AREA(S) TWO TIMES A DAY NEEDED tamsulosin 0.4 mg capsule 0.4 mg PO DAILY Patient Comments: TAKE ONE CAPSULE BY MOUTH EVERY DAY simvastatin 20 mg tablet 20 mg PO DAILY Patient Comments: TAKE ONE TABLET BY MOUTH AT BEDTIME acetaminophen 325 mg capsule 650 mg PO Q4H PRN sucralfate 1 gram Tablet 1 g PO AC & HS Qty: 0 0RF potassium chloride 20 mEq Packet 20 meq PO BIDWMEAL Qty: 0 0RF insulin aspart U-100 100 unit/mL (3 mL) Insulin Pen 0 unit subcut 0800,1200,1700 Qty: 0 0RF Combivent Respimat 20-100 mcg/actuation Mist 1 puff inhalation QID Qty: 0 0RF dextrose [Glutose-15] 40 % Gel 15 g PO DIRECTED PRNQty: 0 0RF folic acid 1 mg Tablet 5 mg PO DAILY Qty: 0 0RF albuterol sulfate [Ventolin HFA] 90 mcg/actuation Hfa Aerosol Inhaler 2 puff inhalation Q4H PRN PRNQty: 0 0RF Inhaler, Assist Devices [Pocket Chamber] 1 ea miscellaneous DIRECTED Qty: 0 0RF pantoprazole [Protonix] 40 mg tablet,delayed release (DR/EC) 40 mg PO BID Qty: 60 0RF bisacodyl [Gentle Laxative (bisacodyl)] 10 mg suppository 10 mg NC DAILY PRN Changed enalapril maleate 5 mg Tablet 5 mg PO DAILY Qty: 0 0RF insulin glargine [Lantus Solostar U-100 Insulin] 100 unit/mL (3 mL) Insulin Pen 10 unit subcut HS Qty: 0 0RF Discontinued amiloride 5 mg Tablet 5 mg PO DAILY Qty: 0 0RF diltiazem HCl 120 mg Capsule,Extended Release 24hr 120 mg PO DAILY Qty: 0 0RF fosfomycin tromethamine 3 gram packet See Rx Instructions .ROUTE .COMPLEX Qty: 1 1RF Rx Instructions: 3 g orally po q3 days x two doses Discharge Instructions Additional Instructions: make sure you keep the wounds offloaded and clean Activity:: Activity as Tolerated Equipment/Supplies:: wound care Diet:: As Tolerated Discharge Orders Other Ambulatory Orders: Basic Metabolic Panel (Routine) Timeframe: 1 Week Facility: [facility] - Location: Laboratory Outpatient - [facility] Ordered By: Braden Weaver Complete Blood Count w/Diff (Routine) Timeframe: 1 Week Facility: [facility] - Location: Laboratory Outpatient - [facility] Ordered By: Braden Weaver DS: Summary Time Spent with Patient providing and/or coordinating discharge services: Greater than 30 minutes Status at Discharge Functional status at discharge: uses cane/walker Overall status at discharge: patient is progressing back to baseline Mental Status: mental status grossly normal Speech and Movement: speech and movement normal Mood: congruent mood Affect: normal affect Quality:SDOH Health Related Social Needs: No Data to Display Exam Narrative Exam Narrative: Chronically ill obese appearing gentleman laying in bed in no acute distress, awake, alert, oriented to person and place and to situation, heart regular rate rhythm, 1/6 systolic murmur, lungs clear to auscultation bilaterally, abdomen obese, soft, nontender, nondistended. 1-2+ bilateral pitting edema of bilateral lower extremities to the knees. Skin with multiple ulcerations to buttocks. [place] macular rash on chest/back and on lower legs. Scaling on left lower leg, dry, warm. Psych Mental Status: mental status grossly normal Speech and Movement: speech and movement normal Mood: congruent mood Affect: normal affect DS: Data Vitals/I&O Vitals and I&O: Vital Signs Temperature 36.2 C L 03/21/24 07:41 Temperature Source Tympanic 03/21/24 07:41 Pulse 76 03/21/24 07:41 Pulse Rhythm Regular 03/21/24 05:05 Pulse 77 03/20/24 15:01 Respiratory Rate 18 03/21/24 07:41 Respiratory Effort Normal, Non-Labored 03/20/24 16:54 Respiratory Depth Shallow 03/21/24 05:05 Respiratory Pattern Normal 03/21/24 05:05 Blood Pressure 127/78 03/21/24 07:41 Blood Pressure Mean 69 03/20/24 15:01 Blood Pressure Position Supine 03/20/24 14:05 Pulse Oximetry 96 03/21/24 07:41 Oxygen Delivery Method Room Air 03/21/24 07:41 Oxygen Flow Rate 0 03/21/24 07:41 Pain Level 0 03/21/24 07:41 Comment [email or web address]@10 03/18/24 04:31 Intake & Output 03/20/24 03/21/24 03/21/24 23:59 11:59 23:59 Intake Total 330 / 551 Output Total 150 / 1100 550 / 550 Balance 180 / -549 -550 / -550 Intake: IV 30 / 220 Oral 300 / 331 Output: Urine 150 / 1050 550 / 550 Other: Urine Color Yellow Yellow Urine Appearance Clear Clear Comment Hood in place. Stool Size Small Moderate Stool Characteristics Soft Liquid Brown Data Completed and Pending Labs on day of discharge: Labs from last 24 hours 03/21/24 03/21/24 06:19 06:15 Hgb 8.9 L Hct 28.3 L Sodium 138 Potassium 3.4 L Chloride 108 H Carbon Dioxide 21.4 Anion Gap 8.6 BUN 5 L Creatinine 0.5 L Est GFR (CKD-EPI 2020) 112.49 Glucose 86 Calcium 7.6 L Magnesium 1.9 Preliminary micro results at discharge 03/16/24 18:32 Blood Culture - Preliminary Blood NO GROWTH 96 HOURS 03/17/24 02:56 Blood Culture - Preliminary Blood NO GROWTH 96 HOURS PFSH All Active Problems (Updated 03/20/24 @ 17:30 by Braden Weaver) Hypotension (Acute) Acute blood loss anemia (Acute) DVT prophylaxis (Acute) Acute hyperkalemia (Acute) Acute right hemiparesis (Acute) Acute CVA (cerebrovascular accident) (Acute) Acute renal insufficiency (Acute) Anemia (Acute) Goals of care, counseling/discussion (Acute) Gastrointestinal hemorrhage with melena (Acute) UTI (urinary tract infection) (Acute) Hyperglycemia (Acute) Anemia (Chronic) Upper GI bleeding (Acute) Leukocytosis (Acute) Pressure ulcer (Acute) Medical History (Updated 03/20/24 @ 17:30 by Braden Weaver) Atrial fibrillation with rapid ventricular response Venous stasis dermatitis of both lower extremities Benign prostatic hyperplasia Hypertension Hemiparesis affecting right side as late effect of stroke Type 2 diabetes mellitus Social History Smoking/Tobacco Use Status: Never Smoking risk assessment performed?: Yes Alcohol Intake: never Substance use type: does not use Housing: assisted living facility Additional Social history: Right hemiparesis for many years after stroke in 30s, but was able to drive and live alone in [place] until January hospitalization Time Spent with Patient Time Spent with Patient: 45-69 minutes Time was spent: preparing to see the patient(eg.review tests), obtaining and/or reviewing separately otained hiistory, ordering medications,tests, procedures, referring, communicating with other health medicare nurse, indepentently interpreting results, counseling the patient and care coordination
[2024-03-21 15:54] VITALS: BP 122/61; PULSE 87; RESP 18; TEMP 37.2; O2SAT 97
== END 2024-03-21 16:10 | disposition skilled nursing facility (03) | DRG 812 ==
LOC: ER 22:00 → ICU 22:32 → MS 03-20 16:11
PROVIDERS: Family Medicine; Admitting Provider Internal Medicine; Emergency Provider Emergency Medicine; PCP Optometrist; Visit Provider Internal Medicine
DX: D62 Acute posthemorrhagic anemia (principal); I69.351 Hemiplegia and hemiparesis following cerebral infarction affecting right dominant side; Z68.42 Body mass index [BMI] 45.0-49.9, adult; N17.9 Acute kidney failure, unspecified; K92.1 Melena; E87.5 Hyperkalemia; E11.9 Type 2 diabetes mellitus without complications; I95.9 Hypotension, unspecified; D52.9 Folate deficiency anemia, unspecified; N18.9 Chronic kidney disease, unspecified; E11.22 Type 2 diabetes mellitus with diabetic chronic kidney disease; E66.01 Morbid (severe) obesity due to excess calories; I69.320 Aphasia following cerebral infarction; D72.829 Elevated white blood cell count, unspecified; E11.65 Type 2 diabetes mellitus with hyperglycemia; I48.91 Unspecified atrial fibrillation; I87.2 Venous insufficiency (chronic) (peripheral); N40.0 Benign prostatic hyperplasia without lower urinary tract symptoms; I12.9 Hypertensive chronic kidney disease with stage 1 through stage 4 chronic kidney disease, or unspecified chronic kidney disease; Z79.4 Long term (current) use of insulin; R60.0 Localized edema; L89.322 Pressure ulcer of left buttock, stage 2; L89.312 Pressure ulcer of right buttock, stage 2; E87.6 Hypokalemia
CPT/HCPCS: 00123; 36415; 36416; 36430; 36556; 71045; 80048; 80053; 82962; 83690; 84145; 85027; 86850; 86900; 86901; 86920; 87040; 87641; 93005; 94640; 96361; 96374; 96375; 97110; 97163; 99222; 99231; 99232; 99291; 74174; 80202; 81003; 81015; 82270; 83605; 83735; 84132; 84484; 85014; 85018; 85025; 85610; 87086; 93010; 99233; 99239; J0743; J1815; J2470; J3370; J3372; J3475; J3480; J3490; J7613; P9016

== ENCOUNTER 2024-07-27 09:35 | Outpatient (REF) | payer MEDICARE, MEDICAID, SELFPAY ==
[2024-07-27 18:29] LABS: Abs Immature Grans 0.04 10^3/uL (0.0-0.06); Absolute Basophil Count 0.05 10^3/uL (0.0-0.2); Absolute Eosinophil Count 0.44 10^3/uL (0.0-0.7); Absolute Lymphocyte Count 1.65 10^3/uL (1.2-3.4); Absolute Monocyte Count 0.56 10^3/uL (0.1-0.8); Absolute Neutrophil Count 5.86 10^3/uL (1.2-6.7); Basophils % 0.6 %; Eosinophils % 5.1 %; HCT 38.2 % (40.0-50.0); HGB 12.1 g/dL (13.5-17.5); Immature Grans % 0.5 %; Lymphocytes % 19.2 %; MCH 28.8 pg (27.0-33.0); MCHC 31.7 % (32.0-36.0); MCV 91 fL (80-95); MPV 9.1 fL (8.0-11.0); Monocytes % 6.5 %; Neutrophils % 68.1 %; Platelet Count 468 10^3/uL (130-400); RDW-SD 49.8 fL
[2024-07-27 18:38] LABS: Anion Gap 3.8 mmol/L (3-11); BUN 23 mg/dL (7-18); CO2 35.2 mmol/L (21.0-32.0); CREATININE 0.7 mg/dL (0.70-1.30); Calcium 9.5 mg/dL (8.5-10.1); Chloride 96 mmol/L (98-107); Estimated GFR 101.62 (mL/min/1.73m2); Glucose 246 mg/dL (74-106); Potassium 5.2 mmol/L (3.5-5.1); Sodium 135 mmol/L (136-145)
[2024-07-27 19:06] LABS: Hemoglobin A1C 9.3 % (<5.7)
== END 2024-07-27 09:36 ==
LOC: LBN 09:35
PROVIDERS: PCP Optometrist; Visit Provider Family Medicine
DX: E11.620 Type 2 diabetes mellitus with diabetic dermatitis (principal)
CPT/HCPCS: 80048; 83036; 85025

== ENCOUNTER 2024-08-24 20:21 | Outpatient (REF) | payer MEDICARE, MEDICAID, SELFPAY | END 2024-08-24 20:22 | disposition home or self-care (01) | LOC: LBN 20:21 | PROVIDERS: PCP Optometrist; Visit Provider Nurse Practitioner Adult Health | DX: R36.0 Urethral discharge without blood (principal); R82.89 Other abnormal findings on cytological and histological examination of urine | CPT/HCPCS: 87070; 87205 ==

== ENCOUNTER 2024-09-04 18:45 | Outpatient (REF) | payer MEDICARE, MEDICAID, SELFPAY | END 2024-09-04 18:46 | disposition home or self-care (01) | LOC: LBN 18:45 | PROVIDERS: PCP Optometrist; Visit Provider Family Medicine | DX: R10.0 Acute abdomen (principal); L08.9 Local infection of the skin and subcutaneous tissue, unspecified | CPT/HCPCS: 87070; 87205 ==

== ENCOUNTER 2024-10-26 20:10 | Outpatient (REF) | payer MEDICARE, MEDICAID, SELFPAY ==
[2024-10-26 17:27] LABS: Abs Immature Grans 0.01 10^3/uL (0.0-0.06); Absolute Basophil Count 0.06 10^3/uL (0.0-0.2); Absolute Eosinophil Count 0.29 10^3/uL (0.0-0.7); Absolute Lymphocyte Count 1.82 10^3/uL (1.2-3.4); Absolute Monocyte Count 0.36 10^3/uL (0.1-0.8); Absolute Neutrophil Count 4.92 10^3/uL (1.2-6.7); Basophils % 0.8 %; Eosinophils % 3.9 %; HCT 37.7 % (40.0-50.0); Immature Grans % 0.1 %; Lymphocytes % 24.4 %; MCH 29.5 pg (27.0-33.0); MCHC 31.8 % (32.0-36.0); MCV 93 fL (80-95); Monocytes % 4.8 %; Platelet Count 455 10^3/uL (130-400); RBC 4.07 10^6/uL (4.36-5.78); RDW 15.5 % (11.8-14.1); RDW-SD 52.8 fL; WBC 7.46 10^3/uL (4.4-10.8)
[2024-10-26 17:34] LABS: C-Reactive Protein 2.98 mg/dL (<or=0.5)
[2024-10-26 17:43] LABS: ESR 104 mm/hr (0-20)
== END 2024-10-26 20:11 | disposition home or self-care (01) ==
LOC: LBN 20:10
PROVIDERS: PCP Optometrist; Visit Provider Family Medicine Geriatric Medicine
DX: L89.313 Pressure ulcer of right buttock, stage 3 (principal)
CPT/HCPCS: 85652; 85025; 86140

== ENCOUNTER 2025-01-12 12:41 | Outpatient (REF) | payer MEDICARE, MEDICAID, SELFPAY ==
[2025-01-12 12:45] LABS: Abs Immature Grans 0.02 10^3/uL (0.0-0.06); Absolute Basophil Count 0.04 10^3/uL (0.0-0.2); Absolute Eosinophil Count 0.28 10^3/uL (0.0-0.7); Absolute Lymphocyte Count 1.87 10^3/uL (1.2-3.4); Absolute Monocyte Count 0.36 10^3/uL (0.1-0.8); Absolute Neutrophil Count 4.12 10^3/uL (1.2-6.7); Basophils % 0.6 %; Eosinophils % 4.2 %; HCT 36.9 % (40.0-50.0); HGB 11.4 g/dL (13.5-17.5); Immature Grans % 0.3 %; MCH 29.7 pg (27.0-33.0); MCHC 30.9 % (32.0-36.0); MCV 96 fL (80-95); MPV 9.4 fL (8.0-11.0); Monocytes % 5.4 %; Neutrophils % 61.5 %; Platelet Count 339 10^3/uL (130-400); RBC 3.84 10^6/uL (4.36-5.78); RDW 15.4 % (11.8-14.1); RDW-SD 54.8 fL; WBC 6.69 10^3/uL (4.4-10.8)
[2025-01-12 12:54] LABS: ALT 20 U/L (16-63); AST 14 U/L (15-37); Alkaline Phosphatase 79 U/L (46-116); Anion Gap 7.3 mmol/L (3-11); BUN 16 mg/dL (7-18); Bilirubin, Total 0.4 mg/dL (0.2-1.0); CO2 31.7 mmol/L (21.0-32.0); CREATININE 0.6 mg/dL (0.70-1.30); Calcium 9.3 mg/dL (8.5-10.1); Calculated LDL 49 mg/dL (<100); Chloride 105 mmol/L (98-107); Cholesterol 103 mg/dL (<200); Estimated GFR 106.46 (mL/min/1.73m2); Glucose 111 mg/dL (74-106); HDL Cholesterol 45 mg/dL (>or=40); Potassium 4.1 mmol/L (3.5-5.1); Sodium 144 mmol/L (136-145); Total Protein 7.1 g/dL (6.4-8.2); Triglyceride 48 mg/dL (<150)
[2025-01-12 13:01] LABS: Hemoglobin A1C 6.3 % (<5.7)
== END 2025-01-12 12:42 | disposition home or self-care (01) ==
LOC: LBN 12:41
PROVIDERS: PCP Optometrist; Visit Provider Family Medicine Geriatric Medicine
DX: E78.5 Hyperlipidemia, unspecified (principal); E11.620 Type 2 diabetes mellitus with diabetic dermatitis
CPT/HCPCS: 80053; 80061; 83036; 85025

== ENCOUNTER 2025-03-02 20:15 | Outpatient (REF) | payer MEDICARE, MEDICAID, SELFPAY ==
[2025-03-02 14:42] LABS: Abs Immature Grans 0.01 10^3/uL (0.0-0.06); Absolute Basophil Count 0.04 10^3/uL (0.0-0.2); Absolute Eosinophil Count 0.29 10^3/uL (0.0-0.7); Absolute Lymphocyte Count 1.65 10^3/uL (1.2-3.4); Absolute Monocyte Count 0.38 10^3/uL (0.1-0.8); Basophils % 0.6 %; Eosinophils % 4.4 %; HCT 35.9 % (40.0-50.0); HGB 11.2 g/dL (13.5-17.5); Immature Grans % 0.2 %; Lymphocytes % 25.1 %; MCH 29.6 pg (27.0-33.0); MCHC 31.2 % (32.0-36.0); MCV 95 fL (80-95); MPV 9.4 fL (8.0-11.0); Monocytes % 5.8 %; Neutrophils % 63.9 %; Platelet Count 400 10^3/uL (130-400); RBC 3.78 10^6/uL (4.36-5.78); RDW 14.8 % (11.8-14.1); RDW-SD 51.8 fL; WBC 6.57 10^3/uL (4.4-10.8)
[2025-03-02 15:06] LABS: Hemoglobin A1C 5.9 % (<5.7)
[2025-03-02 15:16] LABS: ALT 12 U/L (16-63); AST 18 U/L (15-37); Alkaline Phosphatase 80 U/L (46-116); Anion Gap 6.9 mmol/L (3-11); BUN 15 mg/dL (7-18); Bilirubin, Total 0.3 mg/dL (0.2-1.0); CO2 31.1 mmol/L (21.0-32.0); CREATININE 0.7 mg/dL (0.70-1.30); Calcium 9.6 mg/dL (8.5-10.1); Calculated LDL 51 mg/dL (<100); Chloride 104 mmol/L (98-107); Cholesterol 102 mg/dL (<200); Estimated GFR 100.99 (mL/min/1.73m2); Glucose 83 mg/dL (74-106); HDL Cholesterol 39 mg/dL (>or=40); Potassium 3.9 mmol/L (3.5-5.1); Sodium 142 mmol/L (136-145); TSH 1.07 uIU/mL (0.36-3.74); Total Protein 7.9 g/dL (6.4-8.2); Triglyceride 64 mg/dL (<150); Vitamin D 25 Total 28 ng/mL (30-100)
[2025-03-02 22:01] LABS: PSA, Diagnostic 0.6 ng/mL (<=4.5)
== END 2025-03-02 20:16 | disposition home or self-care (01) ==
LOC: LBN 20:15
PROVIDERS: PCP Optometrist; Visit Provider Nurse Practitioner Adult Health
DX: E66.9 Obesity, unspecified (principal); E11.9 Type 2 diabetes mellitus without complications
CPT/HCPCS: 80053; 80061; 82306; 83036; 84153; 84443; 85025

== ENCOUNTER 2025-04-26 22:52 | Outpatient (REF) | payer MEDICARE, MEDICAID, SELFPAY ==
[2025-04-26 16:43] LABS: Abs Immature Grans 0.01 10^3/uL (0.0-0.06); HCT 38.7 % (40.0-50.0); HGB 12.1 g/dL (13.5-17.5); Immature Grans % 0.2 %; MCH 30.0 pg (27.0-33.0); MCHC 31.3 % (32.0-36.0); MCV 96 fL (80-95); MPV 9.4 fL (8.0-11.0); Platelet Count 357 10^3/uL (130-400); RBC 4.03 10^6/uL (4.36-5.78); RDW 15.3 % (11.8-14.1); RDW-SD 54.0 fL; WBC 6.24 10^3/uL (4.4-10.8)
[2025-04-26 17:42] LABS: ALT 20 U/L (16-63); AST 12 U/L (15-37); Albumin 3.4 g/dL (3.4-5.0); Alkaline Phosphatase 94 U/L (46-116); Anion Gap 8.0 mmol/L (3-11); BUN 17 mg/dL (7-18); Bilirubin, Total 0.5 mg/dL (0.2-1.0); CO2 28.0 mmol/L (21.0-32.0); Calcium 9.2 mg/dL (8.5-10.1); Calculated LDL 59 mg/dL (<100); Chloride 102 mmol/L (98-107); Cholesterol 113 mg/dL (<200); Estimated GFR 97.00 (mL/min/1.73m2); Glucose 103 mg/dL (74-106); HDL Cholesterol 40 mg/dL (>or=40); Potassium 4.4 mmol/L (3.5-5.1); Sodium 138 mmol/L (136-145); Total Protein 7.6 g/dL (6.4-8.2); Triglyceride 71 mg/dL (<150)
[2025-04-26 18:04] LABS: Hemoglobin A1C 5.8 % (<5.7)
== END 2025-04-26 22:53 | disposition home or self-care (01) ==
LOC: LBN 22:52
PROVIDERS: PCP Optometrist; Visit Provider Nurse Practitioner Adult Health
DX: N18.9 Chronic kidney disease, unspecified (principal); E11.620 Type 2 diabetes mellitus with diabetic dermatitis
CPT/HCPCS: 80053; 80061; 83036; 85025

== ENCOUNTER 2025-06-13 15:27 | Outpatient (REF) | payer MEDICARE, SELFPAY ==
[2025-06-13 14:31] LABS: Abs Immature Grans 0.02 10^3/uL (0.0-0.06); HCT 37.8 % (40.0-50.0); HGB 11.8 g/dL (13.5-17.5); Immature Grans % 0.3 %; MCH 29.4 pg (27.0-33.0); MCHC 31.2 % (32.0-36.0); MCV 94 fL (80-95); MPV 9.2 fL (8.0-11.0); Platelet Count 371 10^3/uL (130-400); RBC 4.02 10^6/uL (4.36-5.78); RDW 15.1 % (11.8-14.1); RDW-SD 52.1 fL; WBC 6.61 10^3/uL (4.4-10.8)
[2025-06-13 14:49] LABS: Iron 41 ug/dL (65-175)
[2025-06-13 14:59] LABS: Hemoglobin A1C 5.8 % (<5.7)
[2025-06-13 15:07] LABS: ALT 33 U/L (16-63); AST 24 U/L (15-37); Albumin 3.3 g/dL (3.4-5.0); Alkaline Phosphatase 100 U/L (46-116); Anion Gap 6.4 mmol/L (3-11); BUN 18 mg/dL (7-18); Bilirubin, Total 0.5 mg/dL (0.2-1.0); CO2 30.6 mmol/L (21.0-32.0); Calcium 9.1 mg/dL (8.5-10.1); Calculated LDL 53 mg/dL (<100); Chloride 102 mmol/L (98-107); Cholesterol 106 mg/dL (<200); Estimated GFR 100.99 (mL/min/1.73m2); Ferritin 112 ng/mL (26-388); Glucose 109 mg/dL (74-106); HDL Cholesterol 40 mg/dL (>or=40); Potassium 4.5 mmol/L (3.5-5.1); Sodium 139 mmol/L (136-145); Total Protein 7.6 g/dL (6.4-8.2); Triglyceride 67 mg/dL (<150)
== END 2025-06-13 15:28 | disposition home or self-care (01) ==
LOC: LBN 15:27
PROVIDERS: PCP Optometrist; Visit Provider Nurse Practitioner Adult Health
DX: E11.620 Type 2 diabetes mellitus with diabetic dermatitis (principal)
CPT/HCPCS: 80053; 80061; 82728; 83036; 83540; 85025